=== PATIENT | female | born 1955 | race Caucasian/White ===

== ENCOUNTER 2017-02-19 23:22 | Inpatient (IN) | payer BC ==
[2017-02-20 01:15] LABS: Hematocrit 38 % (35-47); Hemoglobin 12.6 g/dl (12.0-16.0); Mean Corpuscular HGB Conc 33 g/dl (31-36); Mean Corpuscular Hemoglobin 32 pg (27-31); Mean Corpuscular Volume 96 fL (80-97); Mean Platelet Volume 9 um3 (7.4-10.4); Red Blood Count 3.97 10^6/ul (4.0-5.4); Red Cell Distribution Width 14 % (10.5-15); White Blood Count 3.2 10^3/ul (3.5-10.8)
[2017-02-20 01:17] LABS: Add Diff/Slide Review? Slide Review Added; Comments Flag Yes
[2017-02-20 01:25] LABS: Albumin 3.8 g/dL (3.2-5.2); BUN/Creatinine Ratio 14.3 (8-20); Calcium 9.9 mg/dL (8.6-10.3); EGFR African American 19.8 (>60); EGFR Non-African American 15.4 (>60); Globulin 3.8 g/dL (2-4); Magnesium 1.8 mg/dL (1.9-2.7); Potassium 4.8 mmol/L (3.5-5.0); Total Bilirubin 0.4 mg/dL (0.2-1.0); Total Protein 7.6 g/dL (6.4-8.9)
--- NOTE | 2017-02-20 01:33 | ED ---
Mayra Canas Alok, scribed for Lizeth Wells MD on 02/20/17 at 0035 . Dizziness - HPI Summary HPI Summary: 61F presents to the ED sent here from her PCP for hyponatremia. Pt notes dizziness lately. Pt denies fever, chills, or ELISE. - History Of Current Complaint Chief Complaint: EDGeneral Stated Complaint: LOW SODIUM Time Seen by Provider: 02/19/17 23:50 Hx Obtained From: Patient Severity Initially: Moderate Severity Currently: Moderate Character: Dizzy Aggravating Factor(s): Nothing Alleviating Factor(s): Nothing Associated Signs And Symptoms: Positive: Other: - hyponatremia. Negative: Fever , Chills - Allergies/Home Medications Allergies/Adverse Reactions: Allergies Allergy/AdvReac Type Severity Reaction Status Date / Time No Known Allergies Allergy Verified 10/05/12 06:09 PMH/Surg Hx/FS Hx/Imm Hx Endocrine/Hematology History: Reports: Hx Thyroid Disease - removed, thyroid CA hx Cardiovascular History: Reports: Hx Hypertension Denies: Hx Pacemaker/ICD GI History: Reports: Other GI Disorders - colectomy c/Jpouch Sensory History: Reports: Hx Contacts or Glasses Denies: Hx Hearing Aid Opthamlomology History: Reports: Hx Contacts or Glasses Psychiatric History: Reports: Hx Anxiety, Hx Depression, Hx Schizophrenia - Schizoaffective type, Other Psychiatric Issues/Disorders - increase in confusion /pt cognition at baseline unclear at present time Denies: Hx Panic Disorder - Cancer History Cancer Type, Location and Year: thyroid cancer,colon cancer Hx Chemotherapy: Yes - Surgical History Surgery Procedure, Year, and Place: Colectomy c/Jpouch, Whipple, thyroidectomy, HUMERUS FX Hx Anesthesia Reactions: No Infectious Disease History: No Infectious Disease History: Denies: Traveled Outside the [place] in Last 30 Days - Family History Known Family History: Positive: Other - Familial adenomatous polyposis - Social History Lives: [facility] Alcohol Use: None Substance Use Type: Reports: None Smoking Status (MU): Never Smoked Tobacco Review of Systems Negative: Fever, Chills Neurological: Other - dizziness Negative: Headache All Other Systems Reviewed And Are Negative: Yes Physical Exam Triage Information Reviewed: Yes Vital Signs On Initial Exam: Initial Vitals Pulse Resp Pulse Ox 83 18 99 02/19/17 23:30 02/19/17 23:30 02/19/17 23:30 Vital Signs Reviewed: Yes Appearance: Positive: Well-Appearing, No Pain Distress Skin: Positive: Warm, Skin Color Reflects Adequate Perfusion, Dry Eyes: Positive: EOMI, NEETU ENT: Positive: Pharynx normal, TMs normal Neck: Positive: Supple, Nontender Respiratory/Lung Sounds: Positive: Clear to Auscultation, Breath Sounds Present. Negative: Rales, Rhonchi, Wheezes Cardiovascular: Positive: RRR, Other - no gallop. Negative: Murmur, Rub Abdomen Description: Positive: Nontender, Soft, Other: - no rebound. Negative: Distended, Guarding Bowel Sounds: Positive: Present Musculoskeletal: Positive: Strength/ROM Intact. Negative: Edema Left, Edema Right Neurological: Positive: Sensory/Motor Intact, Alert, Oriented to Person Place, Time, CN Intact II-III Psychiatric: Positive: Affect/Mood Appropriate - [place] Coma Scale Coma Scale Total: 15 Diagnostics - Vital Signs Vital Signs Temp Pulse Resp BP Pulse Ox 02/19/17 23:32 97.1 F 85 16 133/83 99 02/19/17 23:30 83 18 99 - Laboratory Lab Results: Lab Results 02/20/17 02/20/17 Range/Units 00:45 00:45 WBC 3.2 L (3.5-10.8) 10^3/ul RBC 3.97 L (4.0-5.4) 10^6/ul Hgb 12.6 (12.0-16.0) g/dl Hct 38 (35-47) % MCV 96 (80-97) fL MCH 32 H (27-31) pg MCHC 33 (31-36) g/dl RDW 14 (10.5-15) % Plt Count 239 (150-450) 10^3/ul MPV 9 (7.4-10.4) um3 Neut % (Auto) 48.6 (38-83) % Lymph % (Auto) 19.9 L (25-47) % Casey % (Auto) 26.8 H (1-9) % Eos % (Auto) 4.3 (0-6) % Baso % (Auto) 0.4 (0-2) % Absolute Neuts (auto) 1.6 (1.5-7.7) 10^3/ul Absolute Lymphs (auto) 0.6 L (1.0-4.8) 10^3/ul Absolute Monos (auto) 0.9 H (0-0.8) 10^3/ul Absolute Eos (auto) 0.1 (0-0.6) 10^3/ul Absolute Basos (auto) 0 (0-0.2) 10^3/ul Absolute Nucleated RBC 0 10^3/ul Nucleated RBC % 0.1 Sodium 123 L (133-145) mmol/L Potassium 4.8 (3.5-5.0) mmol/L Chloride 100 L (101-111) mmol/L Carbon Dioxide 14 L* (22-32) mmol/L Anion Gap 9 (2-11) mmol/L BUN 44 H (6-24) mg/dL Creatinine 3.08 H (0.51-0.95) mg/dL Est GFR ( Amer) 19.8 (>60) Est GFR (Non-Af Amer) 15.4 (>60) BUN/Creatinine Ratio 14.3 (8-20) Glucose 108 H (70-100) mg/dL Calcium 9.9 (8.6-10.3) mg/dL Magnesium 1.8 L (1.9-2.7) mg/dL Total Bilirubin 0.40 (0.2-1.0) mg/dL AST 21 (13-39) U/L ALT 18 (7-52) U/L Alkaline Phosphatase 103 (34-104) U/L Total Protein 7.6 (6.4-8.9) g/dL Albumin 3.8 (3.2-5.2) g/dL Globulin 3.8 (2-4) g/dL Albumin/Globulin Ratio 1.0 (1-3) TSH Pending Result Diagrams: 02/20/17 00:45 02/20/17 00:45 Lab Statement: Any lab studies that have been ordered have been reviewed, and results considered in the medical decision making process. - EKG 0024 Cardiac Rate: NL - 66 bpm EKG Rhythm: Sinus Rhythm Dizzy Course/Dx - Course Course Of Treatment: 61 yo female with schizophrenia who is a poor historian sent by Dr. Melo after what pt reports was a regular physical for hyponatremia pt in fact has a sodium of 123 and new acute renal failure, case was discussed with Dr. Alvarado and she will be admitted - Diagnoses Provider Diagnoses: Hyponatremia, Renal failure Discharge - Discharge Plan Condition: Stable Disposition: ADMITTED TO [facility] The documentation as recorded by the Mayra tripathi Alok accurately reflects the service I personally performed and the decisions made by me, Lizeth Wells MD.
[2017-02-20 01:39] LABS: Eosinophils % 2 % (0-6); Immature Granulocytes 23 % (0-9); Macrocytosis 1+; Microcytosis 1+; Neutrophil % 32 % (38-83)
[2017-02-20 01:42] LABS: TSH (Thyroid Stimulating Horm) 18.88 mcIU/mL (0.34-5.60)
[2017-02-20] MEDS: NS 0.9% 1000 ML* 1,000 ML IV SCH ×2 (02:57→11:15)
--- NOTE | 2017-02-20 04:35 | HP ---
CC: Laura Melo MD * HISTORY AND PHYSICAL: DATE OF ADMISSION: 02/20/17 PRIMARY CARE PHYSICIAN: Laura Melo MD CHIEF COMPLAINT: I was told to come in because of my labs. HISTORY OF PRESENT ILLNESS: The patient is a 61-year-old woman, who was at her PCP's office today and was told to come back to the hospital because she was hyponatremic and her kidney function was worsened. Indeed, the patient had a sodium of apparently 120 as an outpatient, it has come out to 123 here. However , creatinine is up over 3 and she does have metabolic acidosis. She denies any symptoms at this time. She states she drinks plenty of water but when queried she says it is only 2 glasses a day. She also notes she has been taking a lot of Advil up until last week and her doctor changed her to another medication, but she does not know the name. Furthermore, she does not know the name of any of her medications. She has felt a little dizzy lately. She denies any black stools. She states she has been urinating adequately. 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 CURRENT MEDICATIONS: She is unaware of what she is taking. We will get the list from her PCP in the a.m. ALLERGIES: No known drug allergies. FAMILY HISTORY: Reviewed and noncontributory. SOCIAL HISTORY: No tobacco, alcohol or recreational drug use. She lives with a rastafari group in [place]. Her sister, Silke Yung is her healthcare proxy. REVIEW OF SYSTEMS: A 14-point review of systems was completed with the patient. All pertinent positives and negatives are in the history of present illness; otherwise, it is negative. PHYSICAL EXAMINATION GENERAL: A pleasant woman, sitting up in bed, in no acute distress. VITAL SIGNS: Blood pressure 120/75, pulse oxygenation 100% on room air, respiratory rate 10 breaths per minute, heart rate 72 beats per minutes, temperature 97.1 degrees. HEENT: Normocephalic, atraumatic. Pupils equal, round, and reactive to light. Moist mucous membranes. NECK: Supple. No JVD, bruits, palpable thyroid or lymphadenopathy. CHEST: Clear to auscultation and percussion bilaterally. CARDIOVASCULAR: S1 and S2 appreciated. ABDOMEN: Positive bowel sounds in all 4 quadrants. Soft, nontender, and nondistended. EXTREMITIES: No cyanosis or clubbing. +2 peripheral pulses bilaterally. NEUROLOGIC: Alert and oriented x3. Moves all extremities. SKIN: No rashes or abnormalities. LABORATORY DATA/DIAGNOSTIC STUDIES: Sodium is 123, potassium 4.8, chloride 100 , CO2 14, BUN 44, creatinine 3.08, glucose 108, magnesium 1.8. TSH is pending. White count is 3.2, hemoglobin 12.6, hematocrit 38, platelets of 239. She has had 23 bands and neutrophils. EKG shows normal sinus rhythm at 66 beats per minute, normal axis, no acute ST- T wave changes. ASSESSMENT AND PLAN: . Acute kidney injury, it is uncertain what this is but her ratio was not consistent with prerenal. It could be interstitial nephritis or something else related to Advil she was taking or even the new medication. I will get a fractional excretion of sodium. I will hydrate her with normal saline at 100 cc an hour. I will hold any nephrotoxic medications. Hopefully, this will reverse in a short time, otherwise may consider nephrology consult. 2. Metabolic acidosis. Again, I suspect this may be secondary to some medications she was taking. We will get the full list from her PCP in the a.m. At this time, it is unclear as to why but she has had this in the past, for example bicarbonate was 16. 3. Hypertension, adequate control, but I will hold her irbesartan if she is still taking it because of concerns with her kidney function and I will monitor. 4. Hypothyroidism, I am awaiting her list of medications to give patient appropriate medication. She was on both liothyronine and levothyroxine most recently. 5. Schizophrenia, continue current regimen. 6. FEN. Regular diet. 7. DVT prophylaxis: Heparin subcu. 8. The patient is a full code. TIME SPENT: Over 75 minutes were spent on this H and P, and more than 40 minutes were spent in direct [id number] contact with the patient in evaluation , physical examination, counseling, and coordination of care. [id number]/[facility] #: [id number] [facility]ENTER[facility]
[2017-02-20] MEDS: Levothyroxine TAB* 150 MCG TAB PO SCH (06:01)
[2017-02-20] MEDS: Heparin VIAL(*) 5000 UNITS/ML VIAL (FIVE THOUSAND) SUBCUT SCH ×3 (06:01→21:21)
[2017-02-20 06:09] LABS: Urine Bacteria 1+ (Absent); Urine Bilirubin Negative (Negative); Urine Glucose Negative (Negative); Urine Nitrite Positive (Negative)
[2017-02-20 06:15] LABS: Urine Random Sodium < 18 mmol/L
[2017-02-20 06:30] LABS: BUN/Creatinine Ratio 15.3 (8-20); Calcium 9.3 mg/dL (8.6-10.3); EGFR African American 22.7 (>60); EGFR Non-African American 17.6 (>60); Potassium 4.4 mmol/L (3.5-5.0)
[2017-02-20] MEDS: Aspirin EC Low Dose* 81 MG TAB.EC PO SCH (08:17)
[2017-02-20] MEDS: Liothyronine TAB* 5 MCG PO SCH ×2 (08:17→21:21)
[2017-02-20] MEDS ORDERED: FLUoxetine CAP* 10 MG PO SCH (09:00)
--- NOTE | 2017-02-20 11:21 | PN ---
Subjective Date of Service: 02/20/17 Interval History: This is a 61 yo female with chronic schizophrenia with multiple medical comorbidities who was referred to the ER yesterday by her PCP when outpatient labs demonstrated significant hyponatremia. Patient states that she has been asymptomatic, but her PCP reported that she has recently complained of weakness. Patient was noted to be hyponatremic with DENTON and subsequent metabolic acidosis and was subsequently admitted last night and started on NS. Patient denies recent acute illness but does recall vomiting once last week after a 2nd cup of coffee. She has been taking Advil recently, but patient can not tell me what the indication was or how much she was taking. This am, she offers no complaints. No CP, SOB, abd pain, n/v. Nursing staff noted a rash and some breakdown between her legs. Objective Active Medications: Aspirin (Aspirin Ec Low Dose*) 81 mg PO DAILY [facility] Last Admin: 02/20/17 08:17 Dose: 81 mg Fluoxetine HCl (Prozac Cap*) 30 mg PO QAM [facility] Last Admin: 02/20/17 08:17 Dose: 30 mg Heparin Sodium (Porcine) (Heparin Vial(*)) 5,000 units SUBCUT Q8HR [facility] Last Admin: 02/20/17 06:01 Dose: 5,000 units Sodium Chloride (Ns 0.9% 1000 Ml*) 1,000 mls @ 125 mls/hr IV PER RATE [facility] Last Admin: 02/20/17 11:15 Dose: 125 mls/hr Levothyroxine Sodium (Synthroid Tab*) 150 mcg PO DAILY@0600 [facility] Last Admin: 02/20/17 06:01 Dose: 150 mcg Liothyronine Sodium (Cytomel Tab*) 5 mcg PO BID [facility] Last Admin: 02/20/17 08:17 Dose: 5 mcg Risperidone (Risperdal*) 1 mg PO BEDTIME [facility] Vital Signs: Temp Pulse Resp BP Pulse Ox 97.4 F 75 16 109/57 100 02/20/17 07:16 02/20/17 07:16 02/20/17 07:16 02/20/17 07:16 02/20/17 02:30 Oxygen Devices in Use Now: None Appearance: Elderly female who appears older than stated age who appears somewhat disheveled with a pungent odor Respiratory: Symmetrical Chest Expansion and Respiratory Effort, Clear to Auscultation Cardiovascular: NL Sounds; No Murmurs; No JVD, RRR Abdominal: NL Sounds; No Tenderness; No Distention Extremities: No Edema Skin: - - some hyperemia and mild breakdown of skin between legs Neurological: Alert and Oriented x 3 Result Diagrams: 02/20/17 00:45 02/20/17 05:39 Additional Lab and Data: . Assess/Plan/Problems-Billing Assessment: This is a 61 yo female with chronic schizophrenia, postsurgical hypothyroidism following thyroidectomy for thyroid CA, h/o total colectomy related to familial adenomatous polyp syndrome with a J pounch, as well as a history of ampullary carcinoma status Whipple procedure who was referred to the hospital for hyponatremia noted on outpatient lab work. - Patient Problems (1) DENTON (acute kidney injury) Comment: Acute on chronic, baseline stage III dysfunction with Cr ~1.6 Likely ATN secondary to NSAID use FeNa 0.4% suggestive of pre-renal, but this was calculated after NS started Noted improvement with NS Appropriate urine outpt Repeat labs at noon, cont with NS at this time (2) Metabolic acidosis Comment: Secondary to DENTON (3) Hyponatremia Comment: Some chronic hyponatremia noted on prior labs Avapro recently discontinued by PCP May be related to hypothyroidism, hold SSRI at this time Receiving NS, repeat labs at noon (4) HTN (hypertension) Comment: Normotensive Cont amlodipine and metoprolol (5) Hypothyroid Comment: TSH 18.8, question compliance, may be contributing to hyponatremia Continue cytomel and synthroid (6) Schizophrenia Comment: Chronic, no psychotic features Cont Risperdal (7) Full code status (8) DVT prophylaxis Comment: HSQ Status and Disposition: Inpatient. Requested social work consult to review home living situation, as patient does not appear to be properly caring for herself. Discharge likely in 1-2 days
[2017-02-20 12:26] LABS: BUN/Creatinine Ratio 15.1 (8-20); Calcium 9.1 mg/dL (8.6-10.3); EGFR African American 24.9 (>60); EGFR Non-African American 19.4 (>60); Potassium 4.4 mmol/L (3.5-5.0)
[2017-02-20] MEDS ORDERED: Sodium Bicarbonate 8.4% IV* 50 MEQ in NS 0.9% 1000 ML* 1,000 ML IV ONE (14:00)
[2017-02-20] MEDS ORDERED: amLODIPine TAB* 5 MG PO SCH (15:50)
[2017-02-20] MEDS ORDERED: Metoprolol Succinate XL TAB* 50 MG PO SCH (15:50)
[2017-02-20] MEDS ORDERED: Acetaminophen TAB* 325 MG PO PRN (15:51)
[2017-02-20] MEDS: amLODIPine TAB* 5 MG PO SCH (16:36)
[2017-02-20] MEDS: Metoprolol Succinate XL TAB* 50 MG PO SCH (16:36)
[2017-02-20 17:13] LABS: BUN/Creatinine Ratio 15.3 (8-20); Calcium 8.8 mg/dL (8.6-10.3); EGFR African American 28.9 (>60); EGFR Non-African American 22.5 (>60); Potassium 4.4 mmol/L (3.5-5.0)
[2017-02-20] MEDS: risperiDONE TAB* 1 MG PO SCH (21:21)
[2017-02-21] MEDS: NS 0.9% 1000 ML* 1,000 ML IV SCH ×2 (02:20→11:30)
[2017-02-21] MEDS: Levothyroxine TAB* 150 MCG TAB PO SCH (06:11)
[2017-02-21] MEDS: Heparin VIAL(*) 5000 UNITS/ML VIAL (FIVE THOUSAND) SUBCUT SCH ×3 (06:11→21:55)
[2017-02-21] MEDS: Aspirin EC Low Dose* 81 MG TAB.EC PO SCH (07:43)
[2017-02-21] MEDS: amLODIPine TAB* 5 MG PO SCH (07:43)
[2017-02-21] MEDS: Liothyronine TAB* 5 MCG PO SCH ×2 (07:43→21:54)
[2017-02-21] MEDS: Metoprolol Succinate XL TAB* 50 MG PO SCH (07:43)
[2017-02-21 07:53] LABS: Blood Urea Nitrogen 26 mg/dL (6-24); Calcium 8.1 mg/dL (8.6-10.3); Chloride 104 mmol/L (101-111); EGFR African American 35.4 (>60); EGFR Non-African American 27.5 (>60); Glucose 93 mg/dL (70-100); Sodium 125 mmol/L (133-145)
[2017-02-21 08:06] LABS: Potassium 4.1 mmol/L (3.5-5.0)
[2017-02-21 08:07] LABS: CO2 Carbon Dioxide 13 mmol/L (22-32)
[2017-02-21] MEDS ORDERED: amLODIPine TAB* 5 MG PO SCH (09:00)
[2017-02-21] MEDS ORDERED: Metoprolol Succinate XL TAB* 50 MG PO SCH (09:00)
[2017-02-21] MEDS: Nystatin CREAM* 15 GM TUBE TOPICAL SCH ×2 (13:17→21:54)
--- NOTE | 2017-02-21 17:07 | PN ---
Subjective Date of Service: 02/21/17 Interval History: Patient seen and examined at bedside. She offers no complaints. Denies CP, SOB, abd pain, n/v, fever/chills. Reports rash in between her legs "has been there for awhile but is getting better." Patient unable to tell me if she has been taking medication for the rash or about any of her medications. Nursing reports concern that patient was dishelved and malodorous. The patient had to be firmly told she needed a shower today. She also needed prompting once in the shower on how to wash her face and perform self care. Patient reports she takes care of herself. Family History: Unchanged from Admission Social History: Unchanged from Admission Past Medical History: Unchanged from Admission Objective Active Medications: Acetaminophen (Tylenol Tab*) 650 mg PO Q6H PRN PRN Reason: pain, fever Amlodipine Besylate (Norvasc Tab*) 5 mg PO 0900 [facility] Last Admin: 02/21/17 07:43 Dose: 5 mg Aspirin (Aspirin Ec Low Dose*) 81 mg PO DAILY [facility] Last Admin: 02/21/17 07:43 Dose: 81 mg Heparin Sodium (Porcine) (Heparin Vial(*)) 5,000 units SUBCUT Q8HR [facility] Last Admin: 02/21/17 13:17 Dose: 5,000 units Lactated Ringer's (Lactated Ringers 1000 Ml Bag*) 1,000 mls @ 125 mls/hr IV PER RATE [facility] Last Admin: 02/21/17 13:17 Dose: 125 mls/hr Levothyroxine Sodium (Synthroid Tab*) 150 mcg PO DAILY@0600 [facility] Last Admin: 02/21/17 06:11 Dose: 150 mcg Liothyronine Sodium (Cytomel Tab*) 5 mcg PO BID [facility] Last Admin: 02/21/17 07:43 Dose: 5 mcg Metoprolol Succinate (Toprol Xl Tab*) 50 mg PO 0900 [facility] Last Admin: 02/21/17 07:43 Dose: 50 mg Nystatin (Nystatin Cream*) 1 applic TOPICAL TID [facility] Last Admin: 02/21/17 13:17 Dose: 1 applic Risperidone (Risperdal*) 1 mg PO BEDTIME [facility] Last Admin: 02/20/17 21:21 Dose: 1 mg Vital Signs 02/20/17 02/20/17 02/20/17 19:15 23:30 23:47 Temperature 99.4 F 99.9 F Pulse Rate 94 88 Respiratory 18 20 Rate Blood Pressure 139/75 122/63 (mmHg) O2 Sat by Pulse 98 98 Oximetry 02/21/17 02/21/17 02/21/17 04:09 07:22 07:46 Temperature 98.6 F 98.6 F Pulse Rate 79 76 Respiratory 18 16 18 Rate Blood Pressure 114/61 145/69 (mmHg) O2 Sat by Pulse 98 99 Oximetry 02/21/17 02/21/17 11:29 11:56 Temperature 97.9 F Pulse Rate 76 Respiratory 16 Rate Blood Pressure 151/83 143/76 (mmHg) O2 Sat by Pulse 100 Oximetry Oxygen Devices in Use Now: None Appearance: Elderly female, appears older than stated age, lying in bed, NAD. Ears/Nose/Mouth/Throat: Mucous Membranes Moist Respiratory: Symmetrical Chest Expansion and Respiratory Effort, Clear to Auscultation Cardiovascular: NL Sounds; No Murmurs; No JVD, RRR Abdominal: NL Sounds; No Tenderness; No Distention Extremities: No Edema Skin: - - hyperemia and mild skin breakdown between legs and to vaginal region Neurological: - - Alert, oriented to self, place, disoriented to time. Disoriented to situation Lines/Tubes/Other Access: Clean, Dry and Intact Peripheral IV Nutrition: Taking PO's Result Diagrams: 02/20/17 00:45 02/21/17 06:56 Additional Lab and Data: . 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 - Patient Problems (1) DENTON (acute kidney injury) Code(s): N17.9 - ACUTE KIDNEY FAILURE, UNSPECIFIED Comment: Acute on chronic, baseline stage III dysfunction with Cr ~1.6 Likely ATN secondary to NSAID use FeNa 0.4% suggestive of pre-renal, but this was calculated after NS started Improving with IVF Appropriate urine outpt Change to LR due to metabolic acidosis, recheck BMP this afternoon. (2) Metabolic acidosis Code(s): E87.2 - ACIDOSIS Comment: Secondary to DENTON Change NS to LR, recheck BMP this afternoon Will give pt bicarb if pt's bicarb level on BMP remains low. (3) Hyponatremia Code(s): E87.1 - HYPO-OSMOLALITY AND HYPONATREMIA Comment: Some chronic hyponatremia noted on prior labs Avapro recently discontinued by PCP May be related to hypothyroidism, hold SSRI at this time (4) HTN (hypertension) Code(s): I10 - ESSENTIAL (PRIMARY) HYPERTENSION Comment: Mostly normotensive Cont amlodipine and metoprolol (5) Hypothyroid Code(s): E03.9 - HYPOTHYROIDISM, UNSPECIFIED Comment: TSH 18.8, question compliance, may be contributing to hyponatremia Continue liothyronine and levothyroxine. (6) Schizophrenia Code(s): F20.9 - SCHIZOPHRENIA, UNSPECIFIED Comment: Chronic, no psychotic features Cont Risperdal (7) DVT prophylaxis Comment: HSQ (8) Full code status Code(s): Z78.9 - OTHER SPECIFIED HEALTH STATUS Status and Disposition: Inpatient. Requested social work consult to review home living situation, as patient does not appear to be properly caring for herself. Concern that patient needs more monitoring and assistance.
[2017-02-21] MEDS: cefTRIAXone VIAL(*) 1,000 MG in NS 0.9% 50 ML* 50 ML IVPB SCH (18:03)
[2017-02-21 20:03] LABS: Calcium 8.3 mg/dL (8.6-10.3); EGFR African American 36.6 (>60); EGFR Non-African American 28.4 (>60)
[2017-02-21] MEDS: risperiDONE TAB* 1 MG PO SCH (21:54)
[2017-02-22] MEDS: Levothyroxine TAB* 150 MCG TAB PO SCH (05:21)
[2017-02-22] MEDS: Heparin VIAL(*) 5000 UNITS/ML VIAL (FIVE THOUSAND) SUBCUT SCH ×3 (05:21→20:55)
[2017-02-22 07:03] LABS: BUN/Creatinine Ratio 10.4 (8-20); Calcium 8.2 mg/dL (8.6-10.3); EGFR African American 47.6 (>60)
[2017-02-22 07:05] LABS: Potassium 3.9 mmol/L (3.5-5.0)
[2017-02-22] MEDS: Nystatin CREAM* 15 GM TUBE TOPICAL SCH ×3 (07:32→21:00)
[2017-02-22] MEDS: Aspirin EC Low Dose* 81 MG TAB.EC PO SCH (07:32)
[2017-02-22] MEDS: Liothyronine TAB* 5 MCG PO SCH ×2 (07:32→20:54)
[2017-02-22] MEDS: amLODIPine TAB* 5 MG PO SCH (07:32)
[2017-02-22] MEDS: Metoprolol Succinate XL TAB* 50 MG PO SCH (07:32)
--- NOTE | 2017-02-22 10:20 | PN ---
Subjective Date of Service: 02/22/17 Interval History: Patient seen and examined at bedside. She offers no acute complaints, denies fever, CP, SOB, abd pain, n/v. No acute nursing concerns. Family History: Unchanged from Admission Social History: Unchanged from Admission Past Medical History: Unchanged from Admission Objective Active Medications: Acetaminophen (Tylenol Tab*) 650 mg PO Q6H PRN PRN Reason: pain, fever Amlodipine Besylate (Norvasc Tab*) 5 mg PO 0900 [facility] Last Admin: 02/22/17 07:32 Dose: 5 mg Aspirin (Aspirin Ec Low Dose*) 81 mg PO DAILY [facility] Last Admin: 02/22/17 07:32 Dose: 81 mg Heparin Sodium (Porcine) (Heparin Vial(*)) 5,000 units SUBCUT Q8HR [facility] Last Admin: 02/22/17 05:21 Dose: 5,000 units Lactated Ringer's (Lactated Ringers 1000 Ml Bag*) 1,000 mls @ 125 mls/hr IV PER RATE [facility] Last Admin: 02/21/17 21:55 Dose: 125 mls/hr Ceftriaxone Sodium 1,000 mg/ (Sodium Chloride) 50 mls @ 200 mls/hr IVPB Q24H [facility] Last Admin: 02/21/17 18:03 Dose: 200 mls/hr Levothyroxine Sodium (Synthroid Tab*) 150 mcg PO DAILY@0600 [facility] Last Admin: 02/22/17 05:21 Dose: 150 mcg Liothyronine Sodium (Cytomel Tab*) 5 mcg PO BID [facility] Last Admin: 02/22/17 07:32 Dose: 5 mcg Metoprolol Succinate (Toprol Xl Tab*) 50 mg PO 0900 [facility] Last Admin: 02/22/17 07:32 Dose: 50 mg Nystatin (Nystatin Cream*) 1 applic TOPICAL TID [facility] Last Admin: 02/22/17 07:32 Dose: 1 applic Risperidone (Risperdal*) 1 mg PO BEDTIME [facility] Last Admin: 02/21/17 21:54 Dose: 1 mg Vital Signs 02/21/17 02/21/17 02/21/17 11:29 11:56 15:45 Temperature 97.9 F 98.4 F Pulse Rate 76 83 Respiratory 16 20 Rate Blood Pressure 151/83 143/76 148/75 (mmHg) O2 Sat by Pulse 100 100 Oximetry 02/21/17 02/21/17 02/22/17 19:55 20:00 01:15 Temperature 98.5 F 98.2 F Pulse Rate 83 87 Respiratory 24 16 16 Rate Blood Pressure 155/78 150/68 (mmHg) O2 Sat by Pulse 99 98 Oximetry 02/22/17 02/22/17 02/22/17 03:35 07:36 08:00 Temperature 98.3 F 98.1 F Pulse Rate 81 81 Respiratory 14 16 16 Rate Blood Pressure 147/72 150/86 (mmHg) O2 Sat by Pulse 100 99 Oximetry Oxygen Devices in Use Now: None Appearance: Female patient, lying in bed, NAD Ears/Nose/Mouth/Throat: Mucous Membranes Moist Respiratory: Symmetrical Chest Expansion and Respiratory Effort, Clear to Auscultation Cardiovascular: NL Sounds; No Murmurs; No JVD, RRR Abdominal: NL Sounds; No Tenderness; No Distention Extremities: No Edema Neurological: Alert and Oriented x 3 Lines/Tubes/Other Access: Clean, Dry and Intact Peripheral IV Nutrition: Taking PO's Result Diagrams: 02/20/17 00:45 02/22/17 06:16 Additional Lab and Data: . 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 - Patient Problems (1) DENTON (acute kidney injury) Code(s): N17.9 - ACUTE KIDNEY FAILURE, UNSPECIFIED Comment: Acute on chronic, baseline stage III dysfunction with Cr ~1.6 Likely ATN secondary to NSAID use FeNa 0.4% suggestive of pre-renal, but this was calculated after NS started Improving with IVF Appropriate urine outpt Change to LR due to metabolic acidosis (2) Metabolic acidosis Code(s): E87.2 - ACIDOSIS Comment: Secondary to DENTON Improved with change to LR (3) Hyponatremia Code(s): E87.1 - HYPO-OSMOLALITY AND HYPONATREMIA Comment: Improving Some chronic hyponatremia noted on prior labs Avapro recently discontinued by PCP May be related to hypothyroidism, hold SSRI at this time (4) HTN (hypertension) Code(s): I10 - ESSENTIAL (PRIMARY) HYPERTENSION Comment: Mostly normotensive Cont amlodipine and metoprolol (5) Hypothyroid Code(s): E03.9 - HYPOTHYROIDISM, UNSPECIFIED Comment: TSH 18.8, question compliance, may be contributing to hyponatremia Continue liothyronine and levothyroxine. (6) Schizophrenia Code(s): F20.9 - SCHIZOPHRENIA, UNSPECIFIED Comment: Chronic, no psychotic features Cont Risperdal (7) DVT prophylaxis Comment: HSQ (8) Full code status Code(s): Z78.9 - OTHER SPECIFIED HEALTH STATUS Status and Disposition: Inpatient. Requested social work consult to review home living situation, as patient does not appear to be properly caring for herself. Concern that patient needs more monitoring and assistance.
[2017-02-22] MEDS: cefTRIAXone VIAL(*) 1,000 MG in NS 0.9% 50 ML* 50 ML IVPB SCH (17:24)
[2017-02-22] MEDS: risperiDONE TAB* 1 MG PO SCH (20:54)
[2017-02-23] MEDS: Levothyroxine TAB* 150 MCG TAB PO SCH (06:00)
[2017-02-23] MEDS: Heparin VIAL(*) 5000 UNITS/ML VIAL (FIVE THOUSAND) SUBCUT SCH ×2 (06:00→13:47)
--- NOTE | 2017-02-23 08:23 | PN ---
Subjective Date of Service: 02/23/17 Interval History: Patient seen and examined at bedside. No acute complaints, denies CP, SOB, n/v. No acute nursing concerns. Family aware of living situation concerns, open to patient returning to home with more assistance. Family History: Unchanged from Admission Social History: Unchanged from Admission Past Medical History: Unchanged from Admission Objective Active Medications: Acetaminophen (Tylenol Tab*) 650 mg PO Q6H PRN PRN Reason: pain, fever Amlodipine Besylate (Norvasc Tab*) 5 mg PO 0900 [facility] Last Admin: 02/22/17 07:32 Dose: 5 mg Aspirin (Aspirin Ec Low Dose*) 81 mg PO DAILY [facility] Last Admin: 02/22/17 07:32 Dose: 81 mg Heparin Sodium (Porcine) (Heparin Vial(*)) 5,000 units SUBCUT Q8HR [facility] Last Admin: 02/23/17 06:00 Dose: 5,000 units Ceftriaxone Sodium 1,000 mg/ (Sodium Chloride) 50 mls @ 200 mls/hr IVPB Q24H [facility] Last Admin: 02/22/17 17:24 Dose: 200 mls/hr Levothyroxine Sodium (Synthroid Tab*) 150 mcg PO DAILY@0600 [facility] Last Admin: 02/23/17 06:00 Dose: 150 mcg Liothyronine Sodium (Cytomel Tab*) 5 mcg PO BID [facility] Last Admin: 02/22/17 20:54 Dose: 5 mcg Metoprolol Succinate (Toprol Xl Tab*) 50 mg PO 0900 [facility] Last Admin: 02/22/17 07:32 Dose: 50 mg Nystatin (Nystatin Cream*) 1 applic TOPICAL TID [facility] Last Admin: 02/22/17 21:00 Dose: 1 applic Risperidone (Risperdal*) 1 mg PO BEDTIME [facility] Last Admin: 02/22/17 20:54 Dose: 1 mg Vital Signs 02/22/17 02/22/17 02/22/17 15:26 19:31 20:00 Temperature 98.0 F 98.5 F Pulse Rate 75 81 Respiratory 16 20 20 Rate Blood Pressure 129/58 146/83 (mmHg) O2 Sat by Pulse 99 98 Oximetry 02/22/17 02/22/17 02/23/17 23:30 23:47 03:52 Temperature 98.8 F 98.5 F Pulse Rate 77 91 Respiratory 18 20 16 Rate Blood Pressure 152/81 133/69 (mmHg) O2 Sat by Pulse 99 96 Oximetry Oxygen Devices in Use Now: None Appearance: Elderly female, appears older than stated age, lying in bed, NAD Eyes: PERRLA Ears/Nose/Mouth/Throat: Mucous Membranes Moist Respiratory: Symmetrical Chest Expansion and Respiratory Effort, Clear to Auscultation Cardiovascular: NL Sounds; No Murmurs; No JVD, RRR Extremities: No Edema Neurological: Alert and Oriented x 3 Nutrition: Taking PO's Result Diagrams: 02/20/17 00:45 02/23/17 12:24 Additional Lab and Data: . 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 - Patient Problems (1) DENTON (acute kidney injury) Code(s): N17.9 - ACUTE KIDNEY FAILURE, UNSPECIFIED Comment: Creatinine within baseline Acute on chronic, baseline stage III dysfunction with Cr ~1.6 Likely ATN secondary to NSAID use (2) Metabolic acidosis Code(s): E87.2 - ACIDOSIS Comment: Secondary to DENTON Improved with change to LR (3) Hyponatremia Code(s): E87.1 - HYPO-OSMOLALITY AND HYPONATREMIA Comment: Improved Some chronic hyponatremia noted on prior labs Avapro recently discontinued by PCP Outpatient BMP and follow-up with PCP (4) HTN (hypertension) Code(s): I10 - ESSENTIAL (PRIMARY) HYPERTENSION Comment: Mostly normotensive Cont amlodipine and metoprolol (5) Hypothyroid Code(s): E03.9 - HYPOTHYROIDISM, UNSPECIFIED Comment: TSH 18.8, question compliance, may be contributing to hyponatremia Continue liothyronine and levothyroxine. (6) Schizophrenia Code(s): F20.9 - SCHIZOPHRENIA, UNSPECIFIED Comment: Chronic, no psychotic features Cont Risperdal (7) DVT prophylaxis Comment: HSQ (8) Full code status Code(s): Z78.9 - OTHER SPECIFIED HEALTH STATUS Status and Disposition: Inpatient. [facility] for [facility] to assist with care needs, as well as better medication monitoring. Patient's family aware of plan. D/c to home.
[2017-02-23] MEDS: Nystatin CREAM* 15 GM TUBE TOPICAL SCH ×2 (09:27→13:47)
[2017-02-23] MEDS: Metoprolol Succinate XL TAB* 50 MG PO SCH (09:27)
[2017-02-23] MEDS: Liothyronine TAB* 5 MCG PO SCH (09:27)
[2017-02-23] MEDS: Aspirin EC Low Dose* 81 MG TAB.EC PO SCH (09:28)
[2017-02-23] MEDS: amLODIPine TAB* 5 MG PO SCH (09:28)
[2017-02-23 13:06] LABS: BUN/Creatinine Ratio 8.4 (8-20); Calcium 8.7 mg/dL (8.6-10.3); EGFR Non-African American 34.2 (>60)
[2017-02-23 13:09] LABS: Potassium 4.4 mmol/L (3.5-5.0)
[2017-02-23 15:31] VITALS: BP 146/71
--- NOTE | 2017-02-24 11:20 | DS ---
CC: Dr. Laura Melo * DISCHARGE SUMMARY: DATE OF ADMISSION: 02/20/17 DATE OF DISCHARGE: 02/23/17 PRIMARY CARE PHYSICIAN: Dr. Laura Melo. PROVIDER: Monique Gill NP. ATTENDING PHYSICIAN: Dr. Rio Brenner *(as dictated by Monique Gill NP). PRIMARY DISCHARGE DIAGNOSES: 1. Hyponatremia. 2. Metabolic acidosis. 3. Acute kidney injury. SECONDARY DISCHARGE DIAGNOSES: 1. Schizophrenia. 2. Gastric polyps. 3. Thyroid cancer with postsurgical hypothyroidism. 4. Familial adenomatous polyp syndrome, status post total colectomy and ileal pouch institution. 5. Anastomotic ulcer of the above mentioned. 6. Status post Whipple procedure for ampullary carcinoma in 2001. 7. Depression. 8. Chronic kidney disease. MEDICATIONS AT DISCHARGE: 1. Metoprolol succinate XL 50 mg daily. 2. Amlodipine 5 mg daily. 3. Aspirin 81 mg daily. 4. Fluoxetine 30 mg q.a.m. 5. Risperidone 1 mg at bedtime. 6. Liothyronine 5 mcg b.i.d. 7. Levothyroxine 150 mcg daily. 8. Nystatin cream one application topical t.i.d. to affected rash and groins. HOSPITAL COURSE OF STAY: For full details, please refer to the H and P provided by Dr. Alvarado on 02/20/17. In summary, Ms. Yung is a 61-year-old female who was at her PCP's office and was referred to the ER due to hyponatremia and worsening kidney function. The patient's sodium was noted to be 120 in the outpatient office. She was noted to be 123 here. Her creatinine was over 3; however, she did demonstrate metabolic acidosis. Patient was admitted and started on normal saline. Patient's acute kidney injury was attributed to potential acute tubular necrosis secondary to NSAID use. Her FENa was taken after she was hydrated and indicated prerenal causes; however, it does appear that this may be a combination of both prerenal chronic conditions as well as ibuprofen use. In regards to the patient's hyponatremia, again there is a chronicity to this. Patient was started on normal saline but switched to LR and there was noted improvement in her metabolic acidosis and hyponatremia. Of note, the patient's Avapro was recently discontinued by her PCP. This hyponatremia may also be related to her hypothyroidism, but it is unclear at this time. With the IV therapy and close monitoring, the patient's renal function and sodium levels have improved and her renal function is back within baseline. The patient's sodium level is 129 upon discharge, which is fairly better than baseline for levels seen here in the hospital. The patient is recommended to follow up with another BMP in the outpatient setting. She is scheduled to see her PCP tomorrow and this can be drawn then or later on this week. In regards to the patient's discharge, there was concern because Ms. Yung is very disheveled and malodorous upon arrival here to the hospital. It was unclear when she had last showered. It was also unclear if she has been taking her medications. She does reside at a [facility] in [place], who does help administer the medications to the patient; however, it is not clear if they actually watch the patient take her medications. Additionally, the patient does admit that she does need prompting to remember to do basic ADLs and to appropriately provide self-care. While here in the hospital, the patient required multiple prompts and assistance in taking a shower and needed reminding as to how to wash herself up. Additionally, the patient was seen by Physical and Occupational Therapy, who also noted that the patient would most likely benefit from some home health assistance or nursing services that will help in monitoring and prompted the patient in these areas. This was discussed with the patient's sister, who did not want to lose the housing that the patient currently has. We did arrange for visiting nurses to be established for the patient. Case Management also spoke with the m[facility], who was advised to watch the patient take her medications in order to ensure medication compliance. On the day of discharge, the patient was in stable condition. Vital signs were stable. She has no acute complaints. Her creatinine ____ baseline function and she is to follow up with her PCP tomorrow. CONCERNS AT DISCHARGE: Ms. Yung will be discharged to home on 02/23/17 and is to have home nursing services sign on this week. They will provide [facility] for cardiopulmonary assessment, medication assessment, evaluation for a locked box, lab draws as needed and a durable medical equipment technician. DIET: May resume a regular diet. Patient is advised to drink plenty of fluids as she does report that she does not drink as regularly as she should. ACTIVITY: As tolerated. FOLLOWUP NEEDS AT DISCHARGE: Patient should have a followup BMP and a script was provided for the patient to have this done through visiting nursing services. Patient was also advised that she could have this done at the office tomorrow if she chooses. CONDITION: Stable. DISPOSITION: To home with visiting nursing services. TIME SPENT: Time spent on this discharge was appropriately 40 minutes. Again, this is only a brief summary of the patient's hospital course of stay. For full details, please refer to the full medical record. If you have any further questions or need further assistance, please feel free to contact me at . MONIQUE GILL NP [id number]/CPS #: [id number] GAGE
== END 2017-02-23 16:10 | disposition home health service (06) | DRG 460 ==
LOC: ED 23:22 → MED 02-20 01:55
PROVIDERS: ADMIT Internal Medicine; ATTEND Internal Medicine
DX: N17.0 Acute kidney failure with tubular necrosis (principal); E87.1 Hypo-osmolality and hyponatremia; K63.3 Ulcer of intestine; E87.2 Acidosis; F20.9 Schizophrenia, unspecified; K31.7 Polyp of stomach and duodenum; E89.0 Postprocedural hypothyroidism; F41.9 Anxiety disorder, unspecified; F32.9 Major depressive disorder, single episode, unspecified; R40.2412 Glasgow coma scale score 13-15, at arrival to emergency department; I12.9 Hypertensive chronic kidney disease with stage 1 through stage 4 chronic kidney disease, or unspecified chronic kidney disease; N18.3 Chronic kidney disease, stage 3 (moderate); T39.395A Adverse effect of other nonsteroidal anti-inflammatory drugs [NSAID], initial encounter; Z85.850 Personal history of malignant neoplasm of thyroid; Z90.49 Acquired absence of other specified parts of digestive tract; Z92.21 Personal history of antineoplastic chemotherapy; Z83.71 Family history of colonic polyps; Z85.89 Personal history of malignant neoplasm of other organs and systems; Z79.82 Long term (current) use of aspirin
CPT/HCPCS: 36415; 80048; 80053; 81003; 81015; 82570; 83605; 83735; 83930; 83935; 84300; 84443; 85025; 87077; 87086; 87186; 93005; A9270-GY; J0696; J1644

== ENCOUNTER 2017-06-21 12:36 | Observation (INO) | payer BC ==
--- NOTE | 2017-06-21 14:59 | RAD ---
HISTORY: Confusion COMPARISONS: Head CT dated July 23, 2016 TECHNIQUE: Multiple contiguous axial CT scans were obtained of the head without intravenous contrast. FINDINGS: HEMORRHAGE/INFARCT: There is no hemorrhage or acute infarct. MASSES/SHIFT: There is no mass or shift. EXTRA-AXIAL SPACES: There are no extra-axial fluid collections. SULCI AND VENTRICLES: The sulci and ventricles are normal in size and position for the patient's stated age. CEREBRUM: There is right temporal encephalomalacia consistent with remote infarct similar to July 23, 2016. BRAINSTEM: There are no focal parenchymal abnormalities. CEREBELLUM: There are no focal parenchymal abnormalities. VESSELS: The vessels are grossly normal. PARANASAL SINUSES: The paranasal sinuses are clear. ORBITS: The orbits are unremarkable. BONES AND SOFT TISSUE: No bone or soft tissue abnormalities are noted. OTHER: None IMPRESSION: NO ACUTE INTRACRANIAL PATHOLOGY. STABLE RIGHT TEMPORAL ENCEPHALOMALACIA
--- NOTE | 2017-06-21 15:22 | RAD ---
HISTORY: Shortness of breath COMPARISONS: July 23, 2016 VIEWS: 1: frontal portable view of the chest at 2:30 PM FINDINGS: LINES AND TUBES: None. CARDIOMEDIASTINAL SILHOUETTE: The cardiomediastinal silhouette is normal for portable technique. PLEURA: The costophrenic angles are sharp. No pleural abnormalities are noted. LUNG PARENCHYMA: The lungs are clear. ABDOMEN: The upper abdomen is clear. There is no subphrenic gas. BONES AND SOFT TISSUES: No bone or soft tissue abnormalities are noted. IMPRESSION: NO ACTIVE CARDIOPULMONARY DISEASE.
[2017-06-21] MEDS: NS 0.9% 1000 ML* 2,000 ML IV ONE ×2 (16:06→17:35)
--- NOTE | 2017-06-21 17:21 | RAD ---
CLINICAL HISTORY: Left upper quadrant pain COMPARISON: None TECHNIQUE: Multiple contiguous axial CT scans were obtained of the abdomen and pelvis, without intravenous contrast enhancement. Coronal and sagittal multiplanar reformations are submitted for review. Oral contrast was administered. FINDINGS: The study is limited by the lack of intravenous contrast. This limits evaluation of the solid organs and vasculature. LUNG BASES: There are multiple nodules of the lung bases bilaterally measuring up to 0.6 in meters in size. LIVER: There is an ill-defined low-attenuation lesion of the right lobe of liver on axial image 23 measuring 3.7 cm in size. BILE DUCTS: There is mild pneumobilia. The patient appears to be status post choledochojejunostomy. There is reflux of oral contrast into the biliary tree GALLBLADDER: The gallbladder is not visualized. PANCREAS: The pancreas is normal, without mass or ductal dilatation. SPLEEN: Normal in size and appearance. UPPER GI TRACT: Evaluation of the gastrointestinal tract is limited by incomplete gastric distention. There is post surgical change to the projected tract. SMALL BOWEL AND MESENTERY: There is postsurgical change to the small bowel. COLON: The patient is to be status post colectomy with ileoanal pull-through. ADRENALS: Normal bilaterally. KIDNEYS: The kidneys are normal in shape, size, contour, and axis. There is no hydronephrosis or nephrolithiasis. BLADDER: The bladder is smooth in contour. PELVIC ORGANS: The uterus and adnexa are grossly normal for technique. AORTA: There is calcific atherosclerotic disease of the abdominal aorta and its branches, without aneurysmal dilatation IVC: Unremarkable LYMPH NODES: There are multiple enlarged lymph nodes of the right. No space and of the small bowel and upper abdominal mesentery ABDOMINAL WALL: There is no evidence for abdominal wall hernia. BONES AND SOFT TISSUES: Degenerative changes are noted of the spine. There is a rounded lucent lesion of the T12 vertebral body OTHER: None IMPRESSION: 1. THERE IS POST SURGICAL CHANGE TO THE GI TRACT. 2. THERE IS EXTENSIVE MESENTERIC AND RETROPERITONEAL LYMPHADENOPATHY. THERE ARE MULTIPLE PULMONARY PARENCHYMAL NODULES. ADDITIONALLY, THERE IS LOW-ATTENUATION LESION OF THE RIGHT LOBE OF LIVER. GIVEN THE HISTORY OF MALIGNANCY, THE APPEARANCE IS MOST CONSISTENT WITH METASTATIC DISEASE. RECOMMEND COMPARISON TO ANY PREVIOUS IMAGING IF AVAILABLE. 3. THERE IS A LUCENT LESION OF THE T12 VERTEBRAL BODY WHICH MAY REPRESENT A SCHMORL'S NODE, THOUGH GIVEN THE HISTORY OF MALIGNANCY A SMALL OSTEOLYTIC METASTASIS IS WITHIN THE DIFFERENTIAL..
[2017-06-21] MEDS ORDERED: NS 0.9% 1000 ML* 2,000 ML IV ONE (20:48)
[2017-06-21 22:15] LABS: Hematocrit 28 % (35-47); Hemoglobin 9.4 g/dl (12.0-16.0); Mean Corpuscular HGB Conc 34 g/dl (31-36); Mean Corpuscular Hemoglobin 31 pg (27-31); Mean Corpuscular Volume 93 fL (80-97); Mean Platelet Volume 9 um3 (7.4-10.4); Red Blood Count 3.01 10^6/ul (4.0-5.4); Red Cell Distribution Width 15 % (10.5-15); White Blood Count 3.9 10^3/ul (3.5-10.8)
--- NOTE | 2017-06-21 22:16 | ED ---
Shawna Canas SooYoung, scribed for Hesham Desai MD on 06/21/17 at 1407 . Complex/Multi-Sys Presentation - HPI Summary HPI Summary: A 61 y/o F presents to the ED with c/o abd pain onset three days ago. She states she has gastroenteritis. Associated sx: nausea, dyspnea. Denies v/d, dysuria, back pain. Per friend, pt was confused this AM, pt didn't know if it was day or night; and in the afternoon, pt was dizzy, weak and had an unsteady gait. Food and drink irritate her stomach. PMHx: Thyroidectomy, colon CA with resection, cholecystectomy. - History Of Current Complaint Chief Complaint: EDGeneral Time Seen by Provider: 06/21/17 13:52 Hx Obtained From: Patient, Family/Pastor - friend / roommate Onset/Duration: Lasting Days, Still Present Timing: Constant Severity Currently: Moderate Severity Initially: Moderate Associated Signs And Symptoms: Positive: Confusion, Dizziness, Weakness, Nausea , Other - pos: dyspnea, unsteady gait. Negative: Vomiting, Diarrhea, Back Pain , Dysuria - Allergies/Home Medications Allergies/Adverse Reactions: Allergies Allergy/AdvReac Type Severity Reaction Status Date / Time No Known Allergies Allergy Verified 10/05/12 06:09 PMH/Surg Hx/FS Hx/Imm Hx Previously Healthy: No Endocrine/Hematology History: Reports: Hx Thyroid Disease - removed, thyroid CA hx Cardiovascular History: Reports: Hx Hypertension Denies: Hx Pacemaker/ICD GI History: Reports: Other GI Disorders - colectomy c/Jpouch Sensory History: Reports: Hx Contacts or Glasses Denies: Hx Hearing Aid Opthamlomology History: Reports: Hx Contacts or Glasses Psychiatric History: Reports: Hx Anxiety, Hx Depression, Hx Schizophrenia - Schizoaffective type, Other Psychiatric Issues/Disorders - increase in confusion /pt cognition at baseline unclear at present time Denies: Hx Panic Disorder - Cancer History Cancer Type, Location and Year: thyroid cancer,colon cancer Hx Chemotherapy: Yes - Surgical History Surgery Procedure, Year, and Place: Colectomy c/Jpouch, Whipple, thyroidectomy, HUMERUS FX Hx Anesthesia Reactions: No Infectious Disease History: No Infectious Disease History: Denies: Traveled Outside the [place] in Last 30 Days - Family History Known Family History: Positive: Other - Familial adenomatous polyposis - Social History Occupation: Unemployed Lives: Dormitory/Roommates Alcohol Use: None Substance Use Type: Reports: None Smoking Status (MU): Never Smoked Tobacco Review of Systems Positive: Other - pos: dyspnea Positive: Abdominal Pain, Nausea Negative: dysuria Negative: Other - neg: back pain Neurological: Other - pos: confusion, dizzy, unsteady gait Positive: Weakness All Other Systems Reviewed And Are Negative: Yes Physical Exam Triage Information Reviewed: Yes Vital Signs On Initial Exam: Initial Vitals Temp Pulse Resp BP Pulse Ox 98.1 F 103 14 102/64 96 06/21/17 12:51 06/21/17 12:51 06/21/17 12:51 06/21/17 12:51 06/21/17 12:51 Vital Signs Reviewed: Yes Appearance: Positive: Well-Appearing, No Pain Distress Skin: Positive: Warm, Skin Color Reflects Adequate Perfusion, Dry Head/Face: Positive: Normal Head/Face Inspection Eyes: Positive: EOMI, NEETU ENT: Positive: Normal ENT inspection, Other - oral mucosa moist Neck: Positive: Supple, Nontender Respiratory/Lung Sounds: Positive: Clear to Auscultation, Breath Sounds Present Cardiovascular: Positive: RRR Abdomen Description: Positive: Soft, Other: - minimal tenderness to L-side abd Bowel Sounds: Positive: Hypoactive Musculoskeletal: Positive: Normal, Strength/ROM Intact Neurological: Positive: Normal, Sensory/Motor Intact, Alert, Oriented to Person Place, Time Psychiatric: Positive: Affect/Mood Appropriate Procedures - Procedure Summary Procedure Summary: ULTRASOUND GUIDED STERILE RIGHT FEMORAL STICK WAS PERFORMED BY MYSELF TO OBTAIN VENOUS BLOOD FOR LAB WORK Diagnostics - Vital Signs Vital Signs Temp Pulse Resp BP Pulse Ox 06/21/17 12:51 98.1 F 103 14 102/64 96 - Laboratory Lab Statement: Any lab studies that have been ordered have been reviewed, and results considered in the medical decision making process. - Radiology CXR Xray Interpretation: No Acute Changes - IMPRESSION: No active cardiopulmonary dz. ED physician has reviewed this radiology report and agrees. Radiology Interpretation Completed By: Radiologist - CT Brain CT CT Interpretation: No Acute Changes - IMPRESSION: NO ACUTE INTRACRANIAL PATHOLOGY. STABLE RIGHT TEMPORAL ENCEPHALOMALACIA. ED physician has reviewed this radiology report and agrees. CT Interpretation Completed By: Radiologist ABD/PEL CT CT Interpretation: Positive (See Comments) - IMPRESSION: 1. THERE IS POST SURGICAL CHANGE TO THE GI TRACT. 2. THERE IS EXTENSIVE MESENTERIC AND RETROPERITONEAL LYMPHADENOPATHY. THERE ARE MULTIPLE PULMONARY PARENCHYMAL NODULES. ADDITIONALLY, THERE IS LOW-ATTENUATION LESION OF THE RIGHT LOBE OF LIVER. GIVEN THE HISTORY OF MALIGNANCY, THE APPEARANCE IS MOST CONSISTENT WITH METASTATIC DISEASE. RECOMMEND COMPARISON TO ANY PREVIOUS IMAGING IF AVAILABLE. 3. THERE IS A LUCENT LESION OF THE T12 VERTEBRAL BODY WHICH MAY REPRESENT A SCHMORL'S NODE, THOUGH GIVEN THE HISTORY OF MALIGNANCY A SMALL OSTEOLYTIC METASTASIS IS WITHIN THE DIFFERENTIAL. ED physician has reviewed this radiology report and agrees. CT Interpretation Completed By: Radiologist - EKG 1427 Cardiac Rate: NL - 84bpm EKG Rhythm: Sinus Rhythm ST Segment: Normal Ectopy: None Re-Evaluation - Re-Evaluation 1 Re-Evaluation Time: 20:49 Change: Unchanged Comment: Discussing results with pt. Discussing options for obtaining bloodwork , as various methods have been exhausted. Complex Multi-Symp Course/Dx Course Of Treatment: A 61 y/o F presents to the ED with c/o abd pain onset three days ago. She states she has gastroenteritis. Associated sx: nausea, dyspnea. Denies v/d, dysuria, back pain. Per friend, pt was confused this AM, pt didn't know if it was day or night; and in the afternoon, pt was dizzy, weak and had an unsteady gait. Food and drink irritate her stomach. PMHx: Thyroidectomy, colon CA with resection, cholecystectomy. Medications reviewed. Brain CT shows "NO ACUTE INTRACRANIAL PATHOLOGY. STABLE RIGHT TEMPORAL ENCEPHALOMALACIA.". LAB WORK RESULTS PENDING AT DISCHARGE. CRITICAL CARE TIME LESS THAN 30 MINUTES. - Diagnoses Provider Diagnoses: Altered mental state, Abdominal pain, Dehydration Discharge - Discharge Plan Condition: Stable Disposition: OTHER Discharge Disposition Comment: . Referrals: Laura Melo MD [Primary Care Provider] - The documentation as recorded by the Shawna tripathi SooYoung accurately reflects the service I personally performed and the decisions made by me, Hesham Desai MD.
[2017-06-21 22:22] LABS: ALT 8 U/L (7-52); AST 16 U/L (13-39); Alkaline Phosphatase 67 U/L (34-104); Anion Gap 7 mmol/L (2-11); BUN/Creatinine Ratio 7.6 (8-20); Blood Urea Nitrogen 12 mg/dL (6-24); C Reactive Protein 75.25 mg/L (< 5.00); CO2 Carbon Dioxide 15 mmol/L (22-32); Calcium 8.2 mg/dL (8.6-10.3); Chloride 101 mmol/L (101-111); Creatine Kinase 54 U/L (10-223); EGFR African American 43.1 (>60); EGFR Non-African American 33.5 (>60); Glucose 105 mg/dL (70-100); Lipase 456 U/L (11.0-82.0); Potassium 3.4 mmol/L (3.5-5.0); Sodium 123 mmol/L (133-145)
[2017-06-21 22:24] LABS: Troponin I 0.03 ng/mL (<0.04)
[2017-06-21 22:33] LABS: Acetaminophen < 15 mcg/mL
[2017-06-21] MEDS ORDERED: Magnesium Sulfate 2 GM IV* 2 GM/50 ML BAG IVPB ONE (22:43)
[2017-06-21 22:49] LABS: TSH (Thyroid Stimulating Horm) 3.33 mcIU/mL (0.34-5.60)
--- NOTE | 2017-06-22 00:10 | HP ---
H&P (Free Text) History and Physical: PCP: Dylan Melo MD Date/Time: 06/22/2017 0010 CC: confusion HPI: Mrs Yung is a simple 61YO female HX schizophrenia, thyroid CA, colon CA, & ampullary CA who awoke this AM feeling confused, thinking it was night at 0700. She also noted fatigue & generalized weakness. She decided to go to the [employer], but en route became light-headed and decided to be evaluated. She admits to some SOB, nausea, & heartburn which she refers to as gastroenteritis, but denies chest pain, palpitations, focal W/N/T, F/C, cough, congestion, sweats, or abdominal pain. She then states, "The only place it hurts is here." and motions to her LUQ. She denies change in bowel/bladder or B/ U/F of urine. 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 HTN CKD stg 3b anemia schizophrenia depression Ambulatory Orders FLUoxetine CAP* [Prozac CAP*] 30 mg PO QAM 10/04/12 Liothyronine TAB* [Cytomel TAB*] 5 mcg PO BID 10/04/12 risperiDONE TAB* [Risperdal*] 1 mg PO BEDTIME 10/04/12 Levothyroxine TAB* [Synthroid 150 MCG TAB*] 150 mcg PO DAILY 07/23/16 Amlodipine Besylate 5 mg PO DAILY 02/20/17 Aspirin [Aspirin Adult Low Dose 81 MG] 81 mg PO DAILY 02/20/17 Allergies No Known Allergies Allergy (Verified 06/21/17 23:12) PSurgHx total colectomy w/ ilial pouch for familial polyposis coli Whipple 2nd ampullary carcinoma thryroidectomy 2nd thyroid CA SocHx: no tobacco, alcohol, or recreational drug HX; lives with a [employer]ec[employer]ism group in [place]; full code status FamHx: Mother passed in her 70s 2nd CHF. Father passed in his 90s 2nd uncertain causes. ROS: as above, otherwise reviewed and all were negative vitals: Vital Signs Temp 36.7 C 06/21/17 12:51 Pulse 87 06/21/17 22:00 Resp 16 06/21/17 22:00 BP 140/90 06/21/17 21:00 Pulse Ox 100 06/21/17 22:00 Intake & Output 06/21/17 06/21/17 06/22/17 11:59 23:59 11:59 Intake Total 3000 Balance 3000 Weight 59.874 kg Intake: IV Fluids 3000 Constitutional: NAD, normally developed, overweight white female appearing older than her reported age HEENM: atraumatic; sclera/conjunctiva: non-icteric/clear; hearing: clinically intact; oropharynx: clear, mucosa moist Neck: soft tissue: non-tender; thyroid: surgically absent, no residual mass Pulmonary: clear to auscultation bilaterally, good aeration, no accessory muscle use CV: RR/RR, normal S1S2, no carotid bruit, no jugular venous distention, 2+ B DP/ PT, no edema Abdominal: soft, non-distended, non-tender, no rebound/guarding/rigidity, normoactive bowel sounds, no hepatosplenomegaly or masses, no costovertebral angle tenderness Musculoskeletal: general: grossly intact, no palpable tenderness Integumental: normal appearance and texture of exposed skin Psychiatric orientation: AA&O to PPS affect: flat mood: cooperative eye contact: fair to poor content: seemingly reliable responses: timely insight: fair to poor Testing: Lab Results 06/21/17 06/21/17 06/21/17 Range/Units 21:50 21:50 21:50 WBC (3.5-10.8) 10^3/ul RBC (4.0-5.4) 10^6/ul Hgb (12.0-16.0) g/dl Hct (35-47) % MCV (80-97) fL MCH (27-31) pg MCHC (31-36) g/dl RDW (10.5-15) % Plt Count (150-450) 10^3/ul MPV (7.4-10.4) um3 Neut % (Auto) (38-83) % Lymph % (Auto) (25-47) % [place] % (Auto) (1-9) % Eos % (Auto) (0-6) % Baso % (Auto) (0-2) % Absolute Neuts (auto) (1.5-7.7) 10^3/ul Absolute Lymphs (auto) (1.0-4.8) 10^3/ul Absolute Monos (auto) (0-0.8) 10^3/ul Absolute Eos (auto) (0-0.6) 10^3/ul Absolute Basos (auto) (0-0.2) 10^3/ul Absolute Nucleated RBC 10^3/ul Nucleated RBC % INR (Anticoag Therapy) 0.92 (0.89-1.11) APTT 16.6 L (26.0-36.3) seconds Sodium 123 L (133-145) mmol/L Potassium 3.4 L (3.5-5.0) mmol/L Chloride 101 (101-111) mmol/L Carbon Dioxide 15 L (22-32) mmol/L Anion Gap 7 (2-11) mmol/L BUN 12 (6-24) mg/dL Creatinine 1.57 H (0.51-0.95) mg/dL Est GFR ( Amer) 43.1 (>60) Est GFR (Non-Af Amer) 33.5 (>60) BUN/Creatinine Ratio 7.6 L (8-20) Glucose 105 H (70-100) mg/dL Lactic Acid (0.5-2.0) mmol/L Calcium 8.2 L (8.6-10.3) mg/dL Magnesium 1.0 L (1.9-2.7) mg/dL Total Bilirubin 0.40 (0.2-1.0) mg/dL AST 16 (13-39) U/L ALT 8 (7-52) U/L Alkaline Phosphatase 67 (34-104) U/L Total Creatine Kinase 54 (10-223) U/L CK-MB (CK-2) 1.2 (0.6-6.3) ng/mL Troponin I 0.03 (<0.04) ng/mL C-Reactive Protein 75.25 H (< 5.00) mg/L B-Natriuretic Peptide 43 ( - 100) pg/mL Total Protein 6.0 L (6.4-8.9) g/dL Albumin 3.0 L (3.2-5.2) g/dL Globulin 3.0 (2-4) g/dL Albumin/Globulin Ratio 1.0 (1-3) Lipase 456 H (11.0-82.0) U/L TSH 3.33 (0.34-5.60) mcIU/mL Acetaminophen < 15 mcg/mL 06/21/17 06/21/17 Range/Units 21:50 21:50 WBC 3.9 (3.5-10.8) 10^3/ul RBC 3.01 L (4.0-5.4) 10^6/ul Hgb 9.4 L (12.0-16.0) g/dl Hct 28 L (35-47) % MCV 93 (80-97) fL MCH 31 (27-31) pg MCHC 34 (31-36) g/dl RDW 15 (10.5-15) % Plt Count 229 (150-450) 10^3/ul MPV 9 (7.4-10.4) um3 Neut % (Auto) 71.0 (38-83) % Lymph % (Auto) 15.2 L (25-47) % Furn[place] % (Auto) 11.7 H (1-9) % Eos % (Auto) 1.8 (0-6) % Baso % (Auto) 0.3 (0-2) % Absolute Neuts (auto) 2.8 (1.5-7.7) 10^3/ul Absolute Lymphs (auto) 0.6 L (1.0-4.8) 10^3/ul Absolute Monos (auto) 0.5 (0-0.8) 10^3/ul Absolute Eos (auto) 0.1 (0-0.6) 10^3/ul Absolute Basos (auto) 0 (0-0.2) 10^3/ul Absolute Nucleated RBC 0 10^3/ul Nucleated RBC % 0 INR (Anticoag Therapy) (0.89-1.11) APTT (26.0-36.3) seconds Sodium (133-145) mmol/L Potassium (3.5-5.0) mmol/L Chloride (101-111) mmol/L Carbon Dioxide (22-32) mmol/L Anion Gap (2-11) mmol/L BUN (6-24) mg/dL Creatinine (0.51-0.95) mg/dL Est GFR ( Amer) (>60) Est GFR (Non-Af Amer) (>60) BUN/Creatinine Ratio (8-20) Glucose (70-100) mg/dL Lactic Acid 0.5 (0.5-2.0) mmol/L Calcium (8.6-10.3) mg/dL Magnesium (1.9-2.7) mg/dL Total Bilirubin (0.2-1.0) mg/dL AST (13-39) U/L ALT (7-52) U/L Alkaline Phosphatase (34-104) U/L Total Creatine Kinase (10-223) U/L CK-MB (CK-2) (0.6-6.3) ng/mL Troponin I (<0.04) ng/mL C-Reactive Protein (< 5.00) mg/L B-Natriuretic Peptide ( - 100) pg/mL Total Protein (6.4-8.9) g/dL Albumin (3.2-5.2) g/dL Globulin (2-4) g/dL Albumin/Globulin Ratio (1-3) Lipase (11.0-82.0) U/L TSH (0.34-5.60) mcIU/mL Acetaminophen mcg/mL ECG, personally reviewed: NSR rate 84, non-specific T-wave flattening V5-6 & I, <[address] elevation isolated to III CXR, personally reviewed: IMPRESSION: NO ACTIVE CARDIOPULMONARY DISEASE. CT brain WO, personally reviewed: IMPRESSION: NO ACUTE INTRACRANIAL PATHOLOGY. STABLE RIGHT TEMPORAL ENCEPHALOMALACIA CT abd/pel WO, personally reviewed: IMPRESSION: 1. THERE IS POST SURGICAL CHANGE TO THE GI TRACT. 2. THERE IS EXTENSIVE MESENTERIC AND RETROPERITONEAL LYMPH- ADENOPATHY. THERE ARE MULTIPLE PULMONARY PARENCHYMAL NODULES. ADDITIONALLY, THERE IS LOW-ATTENUATION LESION OF THE RIGHT [facility] IMAGING LOBE OF LIVER. GIVEN THE HISTORY OF MALIGNANCY, THE APPEARANCE IS MOST CONSISTENT WITH METASTATIC DISEASE. RECOMMEND COMPARISON TO ANY PREVIOUS IMAGING IF AVAILABLE. 3. THERE IS A LUCENT LESION OF THE T12 VERTEBRAL BODY WHICH MAY REPRESENT A SCHMORL'S NODE, THOUGH GIVEN THE HISTORY OF MALIGNANCY A SMALL OSTEOLYTIC METASTASIS IS WITHIN THE DIFFERENTIAL. Impression: 61F HX schizophrenia, thyroid CA, colon CA, ampullary CA, & familial polyposis coli presenting with confusion, fatigue, & generalized weakness with CT abnormality suspicious for wide spread metastatic disease DIAGNOSIS & PLAN Primary suspect widespread metastatic disease : HX thyroid CA, colon CA, ampullary CA, & familial polyposis coli : consider CT guided lymph node BX in AM : consider oncology consultation in AM abdominal discomfort & mildly elevated lipase : pain not clinically customer development representative of pancreatitis : suspect this is 2nd metastatic disease : pain control PRN : trend lipase confusion : etiology uncertain : CT brain WO negative : MRI brain WO in AM normocytic anemia, worsened : previously macrocytic : check anemia labs : trend hypoNatremia : ? SIADH : trend hypoKalemia : replace & recheck profound Magnesemia : replace & recheck hypoalbuminemia : check prealbumin Secondary thyroid CA s/p throidectomy familial polyposis coli s/p total colectomy w/ ilial pouch ampullary carcinoma s/p Whipple : current picture is that of metatstatic disease, ? recurrence vs new primary hypothroidism, post-operative : continue levothyroxine & liothyronine CKD stg 3b : periodic monitoring HTN : continue amlodipine schizophrenia : continue risperidone depression : continue fluoxetine Admission Rational: inpatient for confusion & work up of suspected metastatic disease not anticipated to be completed w/i 48h DVTp: SCDs & heparin SQ Code Status: full HCP: sisterSilke
[2017-06-22] MEDS ORDERED: Acetaminophen TAB* 325 MG PO PRN (01:09)
[2017-06-22] MEDS ORDERED: oxyCODONE TAB* 5 MG TAB PO PRN (01:09)
[2017-06-22] MEDS ORDERED: Melatonin (NF) 3 MG TAB PO PRN (01:09)
[2017-06-22] MEDS ORDERED: Ondansetron INJ* 2 MG/ML VIAL IV PRN (01:09)
[2017-06-22] MEDS ORDERED: Potassium Chlor TAB* 20 MEQ TAB.ER PO ONE (01:12)
[2017-06-22] MEDS ORDERED: Magnesium Sulfate 2 GM IV* 2 GM/50 ML BAG IVPB ONE (01:12)
[2017-06-22] MEDS ORDERED: NS 0.9% 1000 ML* 1,000 ML IV SCH (01:15)
[2017-06-22 01:36] LABS: Iron < 15 ug/dL (50-212); Prealbumin 11 mg/dL (18-38); Total Iron Binding Capacity 209 mcg/dL (250-450); Transferrin 149 mg/dL (203-362)
[2017-06-22 01:46] LABS: Immature Retic Fraction 0.51
[2017-06-22 01:56] LABS: Ferritin 80.6 ng/mL (11-307)
[2017-06-22 02:00] LABS: Folate 11.26 ng/mL (>3.99)
[2017-06-22 02:01] LABS: Vitamin B12 > 1450 pg/mL (180-914)
[2017-06-22] MEDS: Omeprazole CAP* 20 MG PO SCH (06:07)
[2017-06-22] MEDS: Levothyroxine TAB* 150 MCG TAB PO SCH (08:04)
[2017-06-22 08:57] LABS: Hematocrit 32 % (35-47); Hemoglobin 10.6 g/dl (12.0-16.0); Mean Corpuscular HGB Conc 34 g/dl (31-36); Mean Corpuscular Hemoglobin 32 pg (27-31); Mean Corpuscular Volume 94 fL (80-97); Mean Platelet Volume 8 um3 (7.4-10.4); Red Blood Count 3.36 10^6/ul (4.0-5.4); Red Cell Distribution Width 15 % (10.5-15); White Blood Count 3.5 10^3/ul (3.5-10.8)
[2017-06-22 09:13] LABS: BUN/Creatinine Ratio 7.9 (8-20); Calcium 8.4 mg/dL (8.6-10.3); EGFR African American 49.6 (>60); EGFR Non-African American 38.5 (>60); Magnesium 2.4 mg/dL (1.9-2.7); Potassium 3.8 mmol/L (3.5-5.0)
[2017-06-22] MEDS ORDERED: fentaNYL* 50 MCG/ML 2 ML VIAL (100 MCG VIAL) ONE (09:57)
[2017-06-22] MEDS: FLUoxetine CAP* 10 MG PO SCH (09:57)
[2017-06-22] MEDS: amLODIPine TAB* 5 MG PO SCH (09:57)
[2017-06-22] MEDS: Liothyronine TAB* 5 MCG PO SCH ×2 (09:57→22:17)
[2017-06-22] MEDS: Docusate CAP* 100 MG PO SCH ×2 (09:59→22:14)
[2017-06-22] MEDS ORDERED: LORazepam INJ* 2 MG/ML 1 ML VIAL ONE (11:00)
--- NOTE | 2017-06-22 12:12 | RAD ---
INDICATION: Right lobe focal liver lesion. COMPARISON: CT abdomen pelvis dated 81 ANESTHESIA: Intravenous fentanyl and lidocaine injected locally. The benefits and risks of procedure explained to the patient and the patient signed informed consent. Multiple images of the liver were obtained and the right lobe liver lesion identified from previous imaging was located with sonographic imaging. A percutaneous tract was determined leading into the liver lesion in question. Color flow imaging did not show any pulsating arteries in the intended biopsy tract or within the intended liver parenchyma biopsy site. Prebiopsy ultrasound images were saved. A time out was performed before beginning the procedure. The patient was prepped and draped in the usual sterile fashion. The overlying skin, subcutaneous tissue and liver capsule were anesthetized with 1% lidocaine under sonographic guidance. Percutaneously and under sonographic control fine-needle aspiration was performed utilizing a 20-gauge spinal needle. Imaging was saved. The needle and syringe were provided to the attending cytopathologist who indicated the sample acquired was adequate for diagnosis. According to the same technique a second aspiration was acquired to ensure adequate cytologic volume. The post procedure ultrasound demonstrates no evidence of a large hematoma or perinephric fluid. The biopsy site was dressed with sterile gauze and direct manual pressure was held for 5 minutes. The patient tolerated procedure well without incident and was returned to her inpatient room in stable condition. IMPRESSION: Uncomplicated ultrasound-guided fine-needle aspiration of a liver lesion as described above.
--- NOTE | 2017-06-22 13:50 | PN ---
Subjective Date of Service: 06/22/17 Interval History: This is a 61 yo female with chronic schizophrenia and multiple malignancies who presented with c/o confusion and weakness with recent onset n/v after eating. CT scan demonstrated diffuse intra-abdominal and retroperitoneal LAD with liver lesions concerning for metastatic disease. Patient was also hyponatremic, hypokalemic and hypomagnesemic. This am, she reports feeling slightly weak. She is unsure about weight loss. Denies night sweats. She is unable to give a clear history about her prior oncology care, but does report she is not established with an oncologist currently. Objective Active Medications: Acetaminophen (Tylenol Tab*) 650 mg PO Q6H PRN PRN Reason: FEVER/PAIN Amlodipine Besylate (Norvasc Tab*) 5 mg PO DAILY [facility] Last Admin: 06/22/17 09:57 Dose: 5 mg Docusate Sodium (Colace Cap*) 200 mg PO BID [facility] Last Admin: 06/22/17 09:59 Dose: 200 mg Fluoxetine HCl (Prozac Cap*) 30 mg PO QAM [facility] Last Admin: 06/22/17 09:57 Dose: 30 mg Heparin Sodium (Porcine) (Heparin Vial(*)) 5,000 units SUBCUT Q8HR [facility] Sodium Chloride (Ns 0.9% 1000 Ml*) 1,000 mls @ 50 mls/hr IV PER RATE [facility] Levothyroxine Sodium (Synthroid Tab*) 150 mcg PO 0600 [facility] Last Admin: 06/22/17 08:04 Dose: 150 mcg Liothyronine Sodium (Cytomel Tab*) 5 mcg PO BID [facility] Last Admin: 06/22/17 09:57 Dose: 5 mcg Melatonin (Melatonin (Nf)) 3 mg PO BEDTIME PRN; Protocol PRN Reason: Sleep Omeprazole (Prilosec Cap*) 20 mg PO DAILY@0600 [facility] Last Admin: 06/22/17 06:07 Dose: 20 mg Ondansetron HCl (Zofran Inj*) 4 mg IV Q6H PRN PRN Reason: NAUSEA Last Admin: 06/22/17 10:19 Dose: 4 mg Oxycodone HCl (Roxycodone Tab*) 2.5 mg PO Q4H PRN PRN Reason: PAIN Risperidone (Risperdal*) 1 mg PO BEDTIME [facility] Vital Signs: Temp Pulse Resp BP Pulse Ox 98.5 F 107 16 148/81 97 06/22/17 12:58 06/22/17 12:58 06/22/17 12:58 06/22/17 12:58 06/22/17 12:58 Oxygen Devices in Use Now: None Appearance: Well appearing slightly disheveled appearing female in NAD. Respiratory: Symmetrical Chest Expansion and Respiratory Effort, Clear to Auscultation Cardiovascular: NL Sounds; No Murmurs; No JVD, RRR - slightly tachy Abdominal: NL Sounds; No Tenderness; No Distention Extremities: No Edema Skin: No Rash or Ulcers Neurological: Alert and Oriented x 3 Result Diagrams: 06/22/17 08:45 06/22/17 08:45 Assess/Plan/Problems-Billing Assessment: This is a 61 yo female with a history thyroid, colon and pancreatic malignancy s /p total colectomy with ileal pouch and Whipple procedure as well as chronic schizophrenia and CKD who presented with c/o confusion. CT concerning for metastatic process. - Patient Problems (1) weakness and confusion Comment: Acute complaints may be due to multiple electrolyte abnormalities that is likely related to GI loss secondary to nausea and vomiting CT of abd is concerning for likely metastatic process MRI brain is pending to eval for brain mets, CT neg Requesting PT consult to assess severity of weakness after electrolyte repletion (2) Abnormal CT of the abdomen Comment: CT abd/pelvis demonstrates intra-abdominal and retroperitoneal LAD with liver lesions Appreciate IR involvement, who completed liver bx this am with pathology pending Requested oncology consultation given appearance of CT with extensive malignancy history (3) Hyponatremia Comment: Likely secondary to hypovolemia Improving NS (4) Hypomagnesemia Comment: Repleted (5) Hypokalemia Comment: Repleted, likely secondary to GI loss (6) Malignancies Comment: h/o thyroid CA ~25 yrs ago - unsure of treatment history h/o colon CA ~25 yrs ago with familial polyposis s/p total colectomy with ileal pouch h/o pancreatic CA ~2002 s/p Whipple Not currently followed by oncology (7) Chronic kidney disease (CKD) Comment: Stage III, Cr near baseline (8) HTN (hypertension) Comment: Near normotensive now, hypertensive with bx procedure earlier today Cont amlodipine (9) Hypothyroid Comment: TSH 3.33 Cont current levothyroxine/liothyronine (10) Schizophrenia Comment: Chronic, no psychotic features Cont Risperdal (11) Full code status (12) DVT prophylaxis Comment: SQ heparin Status and Disposition: Inpatient. Pending oncology and PT consults
--- NOTE | 2017-06-22 16:17 | RAD ---
Indication: Confusion. History of thyroid and colon carcinoma. Assess for metastasis. Comparison: June 21, 2017 CT and July 24, 2016 MRI. Technique: [employer] 1.5 Kim [id number] with GEM suite. MRI brain without contrast. Report: Diffusion series is negative for acute or subacute ischemia. Susceptibility series is negative for stigmata of hemosiderin deposition to indicate previous hemorrhage. The cerebral sulci, ventricles, and basal cisterns are unremarkable. Unchanged encephalomalacia at the RIGHT temporal lobe most consistent with sequela of previous infarct. Few unchanged foci of increased T2 signal in the periventricular and subcortical white matter of the cerebral hemispheres most consistent with sequela of chronic small vessel ischemic disease. No suspicious intra-axial or extra-axial lesions to raise concern for metastasis within limits of noncontrast MRI. Preserved major intracranial flow-voids. Unremarkable orbital contents. Clear paranasal sinuses and mastoid air spaces. IMPRESSION: 1. No evidence for brain metastasis within limits of noncontrast MRI. No acute intracranial process evident. 2. Unchanged encephalomalacia at the RIGHT temporal lobe likely reflecting sequela of previous ischemic infarct. Stigmata of probable chronic small vessel ischemic disease without change.
[2017-06-22] MEDS ORDERED: risperiDONE TAB* 1 MG PO SCH (21:00)
--- NOTE | 2017-06-22 21:23 | RAD ---
INDICATION: Pulmonary nodules. Suspected metastatic cancer. History of thyroid and colon cancer. COMPARISON: June 21, [address] TECHNIQUE: Multidetector CT images were obtained from the lung apices to the upper abdomen. Evaluation of the viscera is limited without IV contrast. REPORT: Multiple small bilateral pulmonary nodules from the upper lung zones through the lung bases. Vibration Technician 0.5 cm nodule at the anterior basal segment of the RIGHT lower lobe adjacent to the major fissure reference image 38. Vibration Technician 0.5 cm nodule at the junction of the superior and anteromedial basal segments of the LEFT lower lobe reference image 30. Negative for pleural effusions. 1.7 cm short axis diameter LEFT supraclavicular lymph node new compared with a neck CT from July 23, 2016. 1.2 cm short axis LEFT axillary lymph node deep to the pectoralis minor muscle new compared with the 2016 CT. Additional LEFT axillary lymph nodes measuring up to 1.2 cm also new compared with the prior exam. Negative for mediastinal or hilar lymphadenopathy. Negative for cardiomegaly or pericardial effusion. Normal diameter thoracic aorta. Images through the upper abdomen are remarkable for pneumobilia and diffuse upper abdominal retroperitoneal and mesenteric lymphadenopathy. Healing fracture of the RIGHT ninth rib noted posterior laterally. Negative for suspicious osseous lesions. IMPRESSION: Multiple bilateral pulmonary nodules as well as supraclavicular and LEFT axillary lymphadenopathy suspicious for metastatic disease.
[2017-06-22] MEDS ORDERED: hydrALAZINE IV* 20 MG/ML VIAL IV SLOW PU PRN (22:15)
--- NOTE | 2017-06-22 23:06 | CONS ---
CC: Dr. Melo * CONSULTATION REPORT: DATE OF CONSULT: 06/22/17 REFERRING PROVIDER: COOKIE Aaron REASON FOR CONSULTATION: Liver mass. HISTORY OF PRESENT ILLNESS: Ms. Yung is a 61-year-old female, history of schizophrenia who resides semi-independently in a retirement. She awoke on the morning of 06/21/17 with confusion as well as generalized fatigue and weakness. She tried to go to the [employer], but then became lightheaded and instead diverted to the emergency room. Some shortness of breath. She also reported some abdominal pain over the past week in the right upper quadrant that she thought was a gastritis. Left upper quadrant pain. Denied any change in bowel patterns. On admission, she had CT of the brain that was negative and a CT of the abdomen and pelvis that showed a low density liver mass as well as multiple nodules in the lung bases bilaterally measuring 0.6 cm. She is status post Whipple and colon resection, but was noted to have multiple enlarged lymph nodes mesenteric and retroperitoneal as well as a loosened lesion in the T12 vertebral body. She had an MRI of the brain following the CT on 06/22/17 that was negative and had a ultrasound-guided biopsy of the liver mass. Preliminary report reveals malignancy. PAST MEDICAL HISTORY: 1. Family polyposis syndrome, status post total colectomy and ileal pouch in 1992. Subsequent endoscopy has shown polyps in the ileal pouch as well as gastric polyps. Last polyps removed in 2013. 2. Thyroidectomy for thyroid cancer in 1992. 3. Pancreatic cancer, thought to be 2002, status post Whipple. Ampullary carcinoma. 4. Hypertension. 5. Chronic renal disease, stage 3B. 6. Anemia. 7. Schizophrenia and depression. Lives in a retirement and is managed with Risperdal and fluoxetine. 8. Hypothyroidism. PAST SURGICAL HISTORY: As listed above, although we do not have specific dates. SOCIAL HISTORY: She is in a retirement, but does make her decisions independently, is in [place]. Full code. No smoking. No drinking. FAMILY HISTORY: Mother in her 70s of heart disease and father lived into his 90s. REVIEW OF SYSTEMS: As discussed in HPI. She has left upper quadrant abdominal pain. HEENT: Negative. Pulmonary: Some shortness of breath with exertion. Cardiac: Negative. GI: Right upper quadrant as noted above. Normal bowel function. : Negative. Musculoskeletal: Some mild arthritis, but no change recently, feeling generally weak. Neurologic: Chronic psychiatric medications , otherwise negative. Skin: Negative. Hematologic: Negative. PHYSICAL EXAM: Tachycardic on my exam. Heart rate about 130, temperature 98.5 , respirations 16, BP 148/81 on last vitals. HEENT: Mucosa moist. Conjunctivae pale. No cervical or supraclavicular lymphadenopathy. No active dental disease. Lungs: Clear to auscultation. Heart: Tachycardic, S1 and S2. No murmurs, rubs, or gallops. Abdomen: She is nontender to palpation, no hepatosplenomegaly. Good bowel sounds. Nodes: No peripheral lymphadenopathy. Extremities: She has long finger nails, but is reasonably well kempt. Good pulses x4. No clubbing, cyanosis. Neurologic: She is responsive, although poor historian. She understood diagnosis of cancer and chemotherapy. Full exam deferred, but she is grossly nonfocal. LABORATORY DATA/DIAGNOSTIC STUDIES: CT scan was reviewed and shows several suspicious lesions on the right lung base, one on the left. She has normal sized liver with a right lobe lesion inferiorly 3.8 x 2.6 cm. She is status post Whipple, pancreatic tail unremarkable. She has dilated loops and ileal patch with contrast going to the rectum, non-distended bladder. Benign- appearing lymph nodes from the groin, but she has extensive mesenteric lymphadenopathy, particularly peripancreatic On bone windows, she has reported there is a report of a loosened T12 image. I was not finding it. Labs, hemoglobin 10.6, MCV 94, white count 3.5 with normal differential, platelets 228, slight bandemia, about 28. She has got a creatinine of 1.39, and sodium 127, iron sat is 7% with a ferritin of 80. Normal LFTs. Normal LDH. Albumin of 3.0 and a preop albumin of 11, slightly elevated lipase at 365 and normal vitamin B12, normal thyroid studies. ASSESSMENT AND PLAN: A 61-year-old female, history of multiple malignancies, status post Whipple and colon resection. Question of Jimenez syndrome or inherited polyposis. Now presents with a liver mass and diffuse mesenteric lymphadenopathy. Preliminary report of the biopsy is an adenocarcinoma. Leading differential diagnosis would be a small bowel or upper GI tumor given her history and the pattern of spread, other malignancy is possible including bladder cancer, primary lung cancer, pancreatic cancer from the tail of the pancreas. I suspect this is a new malignancy given the time from her last oncologic surgery, but it could be latent recurrent disease. 1. Awaiting biopsy. We will send CEA, CA 19-9. 2. Check CT scan of the chest. 3. Discussed with the patient this is metastatic cancer requiring chemotherapy. She understood that and responded appropriately. We did not discuss prognosis as we do not have a diagnosis at this time. 4. She is iron deficient. We will consider oral iron in the future. 5. We will work on outpatient followup if she is able to be discharged prior to final pathology results coming back. [id number]/[facility] #: [id number] GAGE
[2017-06-23] MEDS: Omeprazole CAP* 20 MG PO SCH (05:44)
[2017-06-23] MEDS: Levothyroxine TAB* 150 MCG TAB PO SCH (05:44)
[2017-06-23] MEDS: FLUoxetine CAP* 10 MG PO SCH (08:33)
[2017-06-23] MEDS: amLODIPine TAB* 5 MG PO SCH (08:33)
[2017-06-23] MEDS: Liothyronine TAB* 5 MCG PO SCH (08:33)
[2017-06-23] MEDS: Docusate CAP* 100 MG PO SCH (08:33)
[2017-06-23 13:31] VITALS: BP 140/71
[2017-06-23] MEDS ORDERED: Heparin VIAL(*) 5000 UNITS/ML VIAL (FIVE THOUSAND) SUBCUT SCH (22:00)
--- NOTE | 2017-06-24 02:36 | DS ---
CC: Dr. Melo; Dr. Nolan * DISCHARGE SUMMARY: DATE OF ADMISSION: 06/22/17 DATE OF DISCHARGE: 06/23/17 PRIMARY CARE PROVIDER: Dr. Melo. CONSULTING ONCOLOGIST: Dr. Nolan. DISCHARGING PROVIDER: COOKIE Beavers SUPERVISING PHYSICIAN: Josh Braden MD * (DICTATED BY COOKIE BEAVERS) PRIMARY DISCHARGE DIAGNOSES: 1. 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 2. Hyponatremia, hypokalemia, and hypomagnesemia with complaints of weakness. 3. Nausea and vomiting. 4. Iron deficiency anemia. SECONDARY DISCHARGE DIAGNOSES: 1. Chronic schizophrenia, which appears to be well controlled without acute psychosis. 2. History of multiple malignancies including thyroid, colon and pancreatic. 3. History of total colectomy. 4. Chronic kidney disease without acute exacerbation. DISCHARGE MEDICATIONS: 1. Amlodipine 5 mg p.o. daily. 2. Aspirin 81 mg p.o. daily. 3. Fluoxetine 30 mg p.o. daily. 4. Levothyroxine 150 mcg p.o. daily. 5. Liothyronine 5 mcg p.o. twice daily. 6. Zofran 4 mg p.o. q.6 hours as needed for nausea. 7. Risperidone 1 mg p.o. at bedtime. Medication Changes: 1. Zofran p.r.n. 2. (Oral iron was not initiated at discharge due to her complaint of GI upset at this time, but can be addressed in the near future.) HOSPITAL IMAGIN. CT of the brain shows no acute pathology. There is stable right temporal encephalomalacia. 2. Chest x-ray shows no acute disease. 3. CT of the abdomen and pelvis shows postsurgical changes to the GI tract. There is extensive mesenteric and retroperitoneal lymphadenopathy and multiple pulmonary and parenchymal nodules as well as low attenuation lesion of the right lobe of the liver. There is also a loosened lesion of the T12 vertebral body, which may represent a small osteolytic lesion. 4. MRI of the brain demonstrates no evidence of metastasis, unchanged encephalomalacia of right temporal lobe likely reflecting sequelae of a prior ischemic infarct. 5. CT of the chest, shows multiple bilateral pulmonary nodules as well as supraclavicular and left axillary lymphadenopathy suspicious for metastatic disease. 6. Pathology results from a liver ultrasound-guided fine-needle aspiration is interpreted as metastatic adenocarcinoma compatible with ampullary primary origin. HOSPITAL COURSE: This is a 61-year-old female with chronic schizophrenia and multiple prior malignancies including thyroid, colon and pancreatic with history of colectomy and Whipple who presented to the emergency department with complaints of generalized weakness and some confusion with some associated dizziness or lightheadedness. The patient had reported for the last couple of weeks or so, she has had some intermittent nausea and vomiting after eating. She denied any specific abdominal pain or bloating or significant changes to her bowel habits. The CT scan of her abdomen and pelvis was completed in the emergency department, which demonstrated diffuse lymphadenopathy with associated liver and lung lesions. These findings especially in the setting of her history of malignancy were concerning for a new metastatic process. Initial labs also demonstrated hyponatremia with a sodium of 123, potassium of 3.4, creatinine 1.57, and magnesium of 1.0, CRP of 75 with a lipase of 456. The patient was subsequently admitted to the hospital for further evaluation of what appeared to be a new metastatic process and treatment of her metabolic derangements. The patient was hydrated with normal saline and her potassium and her magnesium were repleted. She underwent biopsy of one of her liver lesions and pathology eventually returned adenocarcinoma likely of an ampullary primary origin. Oncology was asked to consult in the inpatient setting prior to pathology results being finalized. They will plan to see her in the outpatient setting to further discuss treatment planning and prognosis, but this likely represents a recurrence of her prior ampullary malignancy. DISPOSITION AND FOLLOWUP PLAN: The patient is still slightly fatigued at the time of discharge, but she is able to eat and drink without nausea or vomiting. She was evaluated by Physical Therapy who felt that she was at her baseline functional status, which is independent in mobility. She will return home which is a semi- independent adult living situation. Only medication changes as needed Zofran. The patient would benefit from iron supplementation, but given her recent GI upset, this was held at this time, but can be addressed in the near future. Outpatient appointment was established with Dr. Nolan for 06/30. Her primary care provider's office was notified of her discharge and discussed new diagnosis with her primary nurse as well and followup with Dr. Melo was made for 07/01/17. COOKIE BEAVERS [id number]/[facility] #: [id number] [facility] MED[facility] CENTERFozia
== END 2017-06-23 14:30 | disposition home or self-care (01) ==
LOC: ED 12:36 → INTOOBSV 06-22 02:16 → SSU 06-22 02:16
PROVIDERS: ADMIT Hospitalist; ATTEND Internal Medicine
DX: C24.1 Malignant neoplasm of ampulla of Vater (principal); C78.89 Secondary malignant neoplasm of other digestive organs; R53.1 Weakness; R10.9 Unspecified abdominal pain; R79.9 Abnormal finding of blood chemistry, unspecified; R41.0 Disorientation, unspecified; D64.9 Anemia, unspecified; E87.1 Hypo-osmolality and hyponatremia; E83.42 Hypomagnesemia; R59.1 Generalized enlarged lymph nodes; E88.09 Other disorders of plasma-protein metabolism, not elsewhere classified; Z85.850 Personal history of malignant neoplasm of thyroid; E89.0 Postprocedural hypothyroidism; I12.9 Hypertensive chronic kidney disease with stage 1 through stage 4 chronic kidney disease, or unspecified chronic kidney disease; N18.3 Chronic kidney disease, stage 3 (moderate); F20.9 Schizophrenia, unspecified; Z79.899 Other long term (current) drug therapy; R06.00 Dyspnea, unspecified
CPT/HCPCS: 36415; 47000; 70450; 70551; 71010; 71250; 74176; 76942; 80048; 80053; 80329; 82140; 82378; 82550; 82553; 82607; 82728; 82746; 83540; 83550; 83605; 83615; 83690; 83735; 83880; 84134; 84443; 84484; 85025; 85045; 85610; 85730; 86140; 86301; 88172; 88173; 88305; 88341; 88342; 93005; 96361; 96365; 99223; 99285; A9270-GY; G0378; G0480; J2060; J2405; J3010; J3475

== ENCOUNTER 2017-07-07 07:20 | Day surgery (SDC) | payer BC ==
[~2017-07-07 07:20] MED LIST: Buffered Lidocaine 0.9% SYRIN* 5 ML/SYR SYRINGE INTRADERM ONE; NS 0.9% 1000 ML* 1,000 ML IV SCH
[2017-07-07] MEDS ORDERED: ceFAZolin 2 GM PREMIX (*) 2 GM/50 ML BAG IVPB ONE (07:29)
[2017-07-07] MEDS ORDERED: Buffered Lidocaine 0.9% SYRIN* 5 ML/SYR SYRINGE ONE (07:29)
[2017-07-07] MEDS ORDERED: Famotidine IV* 10 MG/ML 2 ML (20 mg) ONE (08:33)
[2017-07-07] MEDS ORDERED: Midazolam* 1 MG/ML 2 ML VIAL (2 MG) ONE (08:34)
[2017-07-07] MEDS ORDERED: Acetaminophen TAB* 325 MG PO PRN (08:41)
[2017-07-07] MEDS ORDERED: Lidocaine 1% MPF wEPI 200,000* 30 ML SDV ONE (08:52)
[2017-07-07] MEDS ORDERED: Propofol* 10 MG/ML 20 ML BTL IV PUSH ONE (09:16)
[2017-07-07] MEDS ORDERED: Lidocaine 2% PF * 5 ML VIAL ONE (09:16)
[2017-07-07] MEDS ORDERED: Ondansetron INJ* 2 MG/ML VIAL ONE (09:16)
[2017-07-07] MEDS ORDERED: fentaNYL* 50 MCG/ML 2 ML VIAL (100 MCG VIAL) ONE (09:25)
--- NOTE | 2017-07-07 10:24 | SURGPN ---
Brief Operative Note - Surgery Procedures: Procedures Pre-OP Diagnoses: metastatic liver cancer Post-op Diagnosis: same Procedure: Insertion of powerport Surgeon: Sim Asst: none Anethesia: local, MAC EBL: minimal IVF: minimal Specimen: none Drains: none 8Fr single lumen power port via R SCV
--- NOTE | 2017-07-07 11:17 | RAD ---
INDICATION: Status post Mediport placement COMPARISON: Chest x-ray June 21, 2017 TECHNIQUE: Single AP portable view of the chest was obtained. FINDINGS: Image quality is compromised due to the relative inferiority of a portable chest x-ray. There is been interval placement of a right subclavian vein Mediport with the tip terminating at the cavoatrial junction. The heart and mediastinum exhibit normal size and contour. The lungs are grossly clear. There is no pneumothorax. Visualized bones are normal for the patient's age. IMPRESSION: Interval placement of a right subclavian vein power port with the tip terminating at the cavoatrial junction and no right-sided pneumothorax.
[2017-07-07 11:26] VITALS: BP 125/45
--- NOTE | 2017-07-07 13:17 | RAD ---
INDICATION: RIGHT side PowerPort placement. COMPARISON: 1027 hours chest radiograph July 07, 2017 TECHNIQUE: 32.1 seconds fluoroscopy. FINDINGS: Spot image documents the tip of the RIGHT subclavian PowerPort at the level of the RIGHT atrium. IMPRESSION: Procedural fluoroscopy. CPT II Codes: 6045F
--- NOTE | 2017-07-08 01:32 | OP ---
CC: Terrell Nolan MD; Corky Santillan MD; Laura Melo MD; [facility] OPERATIVE REPORT: DATE OF OPERATION: 07/07/17 DATE OF : 55 SURGEON: Oscar Montemayor MD GENERAL DOC: None. ANESTHESIOLOGIST: Dr. Paz. ANESTHESIA: Local MAC anesthesia PRE-OP DIAGNOSIS: Metastatic cancer to the liver. POST-OP DIAGNOSIS: Metastatic cancer to the liver. OPERATIVE PROCEDURE: Insertion of PowerPort. ESTIMATED BLOOD LOSS: Minimal blood loss. FLUIDS: Minimal crystalloid fluid given. DRAINS: An 8-Belgian PowerPort inserted via the right subclavian vein. DESCRIPTION OF PROCEDURE: The patient was identified in the preoperative area, marked, consent sign ed, case discussed with her again. She was brought to the operating room and placed on the operatin g table in supine position. Gentle sedation was given. Sequential devices were placed in bilateral lower extremities. Preoperative antibiotics were given and the patient's right upper chest and neck were prepped and draped in the standard surgical fashion, a time-out was performed. Injection of lidocaine along the proposed incision and stick site was carried out. The subclavian ve in was accessed but only after on initial stick, accessed the subclavian artery. The needle was elza ckly withdrawn at that side. Once we got into the vein, wire was inserted and under fluoroscopy, wa s assured to be in the superior vena cava. An incision was made inferior to this and a pocket was made for the PowerPort. This wire was then br ought out into the incision site and the right subclavian vein was dilated with the given dilators u nder fluoroscopy. The 8-Belgian tubing was then inserted, it was cut to size and attached to the Pow erPort, and then placed into the pocket, sutured at the medial aspect and lateral aspect. Blood was aspirated and the port was flushed with injectable saline and then followed by heparinized saline. The skin incision was reapproximated with 3-0 Vicryl stitches and followed by 4-0 Monocryl subcutic ular stitches. Steri-Strips and sterile dressing were applied. The patient tolerated the procedure well and was transferred to the PACU in stable condition. [id number]/[facility] #: [id number]
== END 2017-07-07 11:46 | disposition home or self-care (01) ==
LOC: OR 07:20
PROVIDERS: ATTEND Surgery
DX: C78.7 Secondary malignant neoplasm of liver and intrahepatic bile duct (principal); C78.00 Secondary malignant neoplasm of unspecified lung; I10 Essential (primary) hypertension; N18.3 Chronic kidney disease, stage 3 (moderate); E03.9 Hypothyroidism, unspecified; D64.9 Anemia, unspecified; Z85.07 Personal history of malignant neoplasm of pancreas
CPT/HCPCS: 71010; 76000; C1788; J0690; J1642; J2001; J2250; J2405; J2704; J3010

== ENCOUNTER 2017-09-01 21:01 | Inpatient (IN) | payer BC ==
[2017-09-01 22:51] LABS: ABS Basophils 0 10^3/ul (0-0.2); ABS Eosinophils 0 10^3/ul (0-0.6); ABS Lymphocytes 0.3 10^3/ul (1.0-4.8); ABS Monocytes 0.2 10^3/ul (0-0.8); ABS Neutrophils 12.1 10^3/ul (1.5-7.7); ABS Nucleated RBC 0 10^3/ul; Eosinophil % 0 % (0-6); Hematocrit 24 % (35-47); Hemoglobin 7.8 g/dl (12.0-16.0); Lymphocyte % 2.7 % (25-47); Mean Corpuscular HGB Conc 33 g/dl (31-36); Mean Corpuscular Hemoglobin 30 pg (27-31); Mean Corpuscular Volume 92 fL (80-97); Mean Platelet Volume 8 um3 (7.4-10.4); Nucleated Red Blood Cells % 0; Platelet Count 77 10^3/ul (150-450); Red Blood Count 2.59 10^6/ul (4.0-5.4); Red Cell Distribution Width 18 % (10.5-15); White Blood Count 12.6 10^3/ul (3.5-10.8)
[2017-09-01 23:08] LABS: EGFR Non-African American 31.4 (>60)
[2017-09-02] MEDS ORDERED: Zolpidem TAB* 10 MG PO ONE (00:24)
[2017-09-02] MEDS ORDERED: Magnesium Sulfate IV* 3 GM in NS 0.9% 100 ML* 100 ML IVPB ONE (01:20)
[2017-09-02] MEDS ORDERED: Melatonin (NF) 3 MG TAB PO PRN (01:28)
[2017-09-02] MEDS ORDERED: Ondansetron INJ* 2 MG/ML VIAL IV PRN (01:28)
[2017-09-02] MEDS ORDERED: Acetaminophen TAB* 325 MG PO PRN (01:28)
[2017-09-02] MEDS ORDERED: Magnesium Sulfate 2 GM IV IVPB ONE (02:00)
[2017-09-02] MEDS ORDERED: Magnesium Sulfate 2 GM IV* 2 GM/50 ML BAG ONE (02:06)
[2017-09-02] MEDS ORDERED: Magnesium Sulfate 1 GM IV* 1 GM/100 ML BAG IV ONE (03:30)
--- NOTE | 2017-09-02 04:13 | HP ---
H&P (Free Text) History and Physical: PCP: Dylan Khan MD Date/Time: 09/02/2017 0100 CC: fever HPI: Mrs Yung is a 61YO female HX ampullary adenoCA metastatic to liver who awoke this AM with generalized weakness which persisted into the early afternoon. She called Sergio Nolan MD's office which advised her to monitor and call for any changes. She continued with stable generalized weakness until ~1900 when she developed a fever of 101F for which she called her oncology office again and was advised to present for evaluation. She reports her chronic diarrhea has been worse today, but denies abdominal pain, black/bloody content, headache, chest pain, SOB, cough, congestion, B/U/F of urine or other issues. Evaluation is notable for WBCs 12.6k 95.9% neutrophils, HGB 7.8, stable hypoNatremia of 129, stable creatinine of 1.66, lactic acid of 3.3, magnesium 1.3, & albumin 2.4. ANC is 12.1. PMedHx thyroid CA s/p thyroidectomy hypothyroidism, post-operative familial polyposis coli s/p total colectomy w/ ilial pouch ilial pouch anastamotic ulcer ampullary adenoCA s/p Whipple gastric polyps HTN CKD stg 3b anemia schizophrenia depression Ambulatory Orders Nursing to reconcile. FLUoxetine CAP* [Prozac CAP*] 30 mg PO QAM 10/04/12 Liothyronine TAB* [Cytomel TAB*] 5 mcg PO BID 10/04/12 risperiDONE TAB* [Risperdal*] 1 mg PO BEDTIME 10/04/12 Levothyroxine TAB* [Synthroid 150 MCG TAB*] 150 mcg PO QPM 07/23/16 Amlodipine Besylate 10 mg PO QAM 02/20/17 Aspirin [Aspirin Adult Low Dose 81 MG] 81 mg PO QPM 02/20/17 Ondansetron ODT TAB* [Zofran 4 MG Odt TAB*] 4 mg PO Q6H PRN #20 tab.odt Iron Polysaccharide Complex- [Iferex 150 Forte 150-25-1 mg-Mcg-mg] 1 cap PO QPM 07/03/17 Metoprolol Succinate [Toprol Xl] 50 mg PO QAM 07/03/17 D-Mannose 1 pow PO DAILY 07/22/17 Lorazepam [Ativan 0.5 MG TAB] 0.5 mg PO DAILY PRN 07/22/17 Omeprazole CAP* [Prilosec CAP* 20 MG] 20 mg PO DAILY 07/22/17 Allergies No Known Allergies Allergy (Verified 09/01/17 21:10) PSurgHx thyroidectomy 2nd thyroid CA Whipple 2nd ampullary adenoCA total colectomy w/ ilial pouch 2nd familial polyposis coli SocHx: no tobacco, alcohol, or recreational drugs; lives with a scientologist group in [place], full code status FamHx: Mother: in her 70s 2nd CHF; Father: in his 90s 2nd unknown cause ROS: as above, otherwise reviewed and all were negative vitals: Vital Signs Temp 36.6 C 09/02/17 03:28 Pulse 68 09/02/17 03:28 Resp 21 09/02/17 03:28 BP 155/62 09/02/17 03:28 Pulse Ox 98 09/02/17 03:28 Intake & Output 09/01/17 09/01/17 09/02/17 11:59 23:59 11:59 Weight 55.792 kg Constitutional: NAD, normally developed, well-nourished white female HEENM: atraumatic; sclera/conjunctiva: anicteric/clear; blephara: mild blepharitis s/ excessive tearing ? xerophthalmia; hearing: clinically intact; oropharynx: clear, mucosa tacky Neck: soft tissue: no nuchal rigidity; thyroid: surgically absent, non-tender Pulmonary: clear to auscultation bilaterally, good aeration, no accessory muscle use CV: RR/RR, normal S1S2, no carotid bruit, no jugular venous distention, 2+ B DP/ PT, 1+ BLE edema Abdominal: soft, non-distended, non-tender, no rebound/guarding/rigidity, normoactive bowel sounds, no hepatosplenomegaly or masses, no costovertebral angle tenderness Musculoskeletal: general: grossly intact, no tenderness to palpation Integumental: normal appearance and texture of exposed skin Psychiatric orientation: AA&O to PPS affect: calm mood: cooperative eye contact: poor content: reliable responses: timely insight: fair Testing: Lab Results 09/01/17 09/01/17 09/01/17 Range/Units 22:17 22:17 22:17 WBC 12.6 H (3.5-10.8) 10^3/ul RBC 2.59 L (4.0-5.4) 10^6/ul Hgb 7.8 L (12.0-16.0) g/dl Hct 24 L (35-47) % MCV 92 (80-97) fL MCH 30 (27-31) pg MCHC 33 (31-36) g/dl RDW 18 H (10.5-15) % Plt Count 77 L (150-450) 10^3/ul MPV 8 (7.4-10.4) um3 Neut % (Auto) 95.9 H (38-83) % Lymph % (Auto) 2.7 L (25-47) % Rhea % (Auto) 1.3 (1-9) % Eos % (Auto) 0 (0-6) % Baso % (Auto) 0.1 (0-2) % Absolute Neuts (auto) 12.1 H (1.5-7.7) 10^3/ul Absolute Lymphs (auto) 0.3 L (1.0-4.8) 10^3/ul Absolute Monos (auto) 0.2 (0-0.8) 10^3/ul Absolute Eos (auto) 0 (0-0.6) 10^3/ul Absolute Basos (auto) 0 (0-0.2) 10^3/ul Absolute Nucleated RBC 0 10^3/ul Nucleated RBC % 0 Sodium 129 L (133-145) mmol/L Potassium 4.2 (3.5-5.0) mmol/L Chloride 99 L (101-111) mmol/L Carbon Dioxide 21 L (22-32) mmol/L Anion Gap 9 (2-11) mmol/L BUN 16 (6-24) mg/dL Creatinine 1.66 H (0.51-0.95) mg/dL Est GFR ( Amer) 40.4 (>60) Est GFR (Non-Af Amer) 31.4 (>60) BUN/Creatinine Ratio 9.6 (8-20) Glucose 200 H (70-100) mg/dL Lactic Acid 3.3 H* (0.5-2.0) mmol/L Calcium 7.5 L (8.6-10.3) mg/dL Magnesium 1.3 L (1.9-2.7) mg/dL Total Bilirubin 0.80 (0.2-1.0) mg/dL AST 41 H (13-39) U/L ALT 17 (7-52) U/L Alkaline Phosphatase 183 H (34-104) U/L Total Protein 5.3 L (6.4-8.9) g/dL Albumin 2.4 L (3.2-5.2) g/dL Globulin 2.9 (2-4) g/dL Albumin/Globulin Ratio 0.8 L (1-3) Influenza A (Rapid) (Negative) Influenza B (Rapid) (Negative) 09/02/17 Range/Units 01:27 WBC (3.5-10.8) 10^3/ul RBC (4.0-5.4) 10^6/ul Hgb (12.0-16.0) g/dl Hct (35-47) % MCV (80-97) fL MCH (27-31) pg MCHC (31-36) g/dl RDW (10.5-15) % Plt Count (150-450) 10^3/ul MPV (7.4-10.4) um3 Neut % (Auto) (38-83) % Lymph % (Auto) (25-47) % Rhea % (Auto) (1-9) % Eos % (Auto) (0-6) % Baso % (Auto) (0-2) % Absolute Neuts (auto) (1.5-7.7) 10^3/ul Absolute Lymphs (auto) (1.0-4.8) 10^3/ul Absolute Monos (auto) (0-0.8) 10^3/ul Absolute Eos (auto) (0-0.6) 10^3/ul Absolute Basos (auto) (0-0.2) 10^3/ul Absolute Nucleated RBC 10^3/ul Nucleated RBC % Sodium (133-145) mmol/L Potassium (3.5-5.0) mmol/L Chloride (101-111) mmol/L Carbon Dioxide (22-32) mmol/L Anion Gap (2-11) mmol/L BUN (6-24) mg/dL Creatinine (0.51-0.95) mg/dL Est GFR ( Amer) (>60) Est GFR (Non-Af Amer) (>60) BUN/Creatinine Ratio (8-20) Glucose (70-100) mg/dL Lactic Acid (0.5-2.0) mmol/L Calcium (8.6-10.3) mg/dL Magnesium (1.9-2.7) mg/dL Total Bilirubin (0.2-1.0) mg/dL AST (13-39) U/L ALT (7-52) U/L Alkaline Phosphatase (34-104) U/L Total Protein (6.4-8.9) g/dL Albumin (3.2-5.2) g/dL Globulin (2-4) g/dL Albumin/Globulin Ratio (1-3) Influenza A (Rapid) Negative (Negative) Influenza B (Rapid) Negative (Negative) CXR, personally reviewed: new L pleural effusion compared to 06/2017 film Impression: 61F HX thyroid CA, ampullary adenoCA metastatic to liver presents with fever, generalized weakness, & new pleural effusion DIAGNOSIS & PLAN Primary fever & generalized weakness : blood CX : no clear indication for ABX, trend WBCs & temperature curves : anti-pyretics PRN : supportive care new pleural effusion : concerning for malignant effusion give HX thyroid & ampullary Butch : oncology to decide on work up in AM : consider thoracentesis for CX & cytology anemia, worse than baseline : stool for occult blood : trend H&H : type & screen hypoMagnesemia : replace & recheck suspect protein calorie malnutrition : check pre-albumin in AM Secondary thyroid CA s/p thyroidectomy ampullary adenoCA s/p Whipple : continue management per oncology familial polyposis coli s/p total colectomy w/ ilial pouch ilial pouch anastamotic ulcer : no acute issues hypothyroidism, post-operative : continue levothyroxine once reconciled HTN : review meds once reconciled CKD stg 3b : periodic monitoring schizophrenia : review meds once reconciled depression : review meds once reconciled Admission Rational: inpatient for fever, evaluation of new pleural effusion, severe hypoMagnesemia; not anticipating D/C w/i 48h DVTp: SCDs, no anticoagulation given worsening anemia Code Status: full HCP: sister, Silke
[2017-09-02] MEDS: NS 0.9% 1000 ML* 1,000 ML IV SCH ×2 (04:21→19:38)
--- NOTE | 2017-09-02 04:31 | ED ---
Leighann Canas Emily, scribed for Celina Chapman MD on 09/01/17 at 2252 . HPI Febrile Illness - HPI Summary HPI Summary: This patient is a 61 year old F presenting to [facility] accompanied by friend with a chief complaint of a fever that began at 1900 today. Pt was referred to [facility] on the advice of Dr. Nolan. The patient rates the pain 0/10 in severity. Symptoms aggravated by nothing. Symptoms alleviated by nothing. Patient reports weakness, diarrhea (chronic), cough, eye drainage, and abd pain. Patient denies dysuria, hematuria, hematochezia, headache, vomiting, blurred vision, diplopia, ear ache, sore throat, neck pain, CP, SOB, back pain, and melena. Pt is currently undergoing chemotherapy for lung and liver CA. Patients last chemo treatment was 6 days ago. Pt denies recent antibiotics. - History of Current Complaint Chief Complaint: EDFever Time Seen by Provider: 09/01/17 21:44 Hx Obtained From: Patient, Family/Golf Ball Trimmer Onset/Duration: Started Hours Ago, Still Present Timing: Constant, Lasting Hours Initial Severity: Mild Current Severity: Mild Pain Intensity: 0 Pain Scale Used: 0-10 Numeric Aggravating Factors: Nothing Alleviating Factors: Nothing Associated Signs and Symptoms: Other: - Positive weakness, diarrhea (chronic), cough, eye drainage, and abd pain. Negative dysuria, hematuria, hematochezia, headache, vomiting, blurred vision, diplopia, ear ache, sore throat, neck pain, CP, SOB, back pain, and melena - Additional Pertinent History Primary Care Physician: [id number] - Allergy/Home Medications Allergies/Adverse Reactions: Allergies Allergy/AdvReac Type Severity Reaction Status Date / Time No Known Allergies Allergy Verified 09/01/17 21:10 PMH/Surg Hx/FS Hx/Imm Hx Previously Healthy: No Endocrine/Hematology History: Reports: Hx Thyroid Disease - removed, thyroid CA hx, Hx Anemia Cardiovascular History: Reports: Hx Hypertension Denies: Hx Pacemaker/ICD GI History: Reports: Other GI Disorders - Familial polyposis, colectomy with ileal pouch, ampullary cancer, colon ca. Sensory History: Reports: Hx Contacts or Glasses Denies: Hx Hearing Aid Opthamlomology History: Reports: Hx Contacts or Glasses Neurological History: Reports: Hx Transient Ischemic Attacks (TIA), Other Neuro Impairments/Disorders - MENTAL HEALTH ISSUES? Psychiatric History: Reports: Hx Anxiety, Hx Depression, Hx Schizophrenia - Schizoaffective type, Other Psychiatric Issues/Disorders - increase in confusion /pt cognition at baseline unclear at present time Denies: Hx Panic Disorder - Cancer History Cancer Type, Location and Year: thyroid cancer,colon cancer Hx Chemotherapy: Yes - Surgical History Surgery Procedure, Year, and Place: Colectomy with ileal pouch; Whipple; thyroidectomy; left humerus ORIF Hx Anesthesia Reactions: No Infectious Disease History: No Infectious Disease History: Denies: Traveled Outside the [place] in Last 30 Days - Family History Known Family History: Positive: Other - Familial adenomatous polyposis - Social History Occupation: Employed Full-time Lives: With Family Alcohol Use: None Alcohol Amount: 1 drink/year Substance Use Type: Reports: None Smoking Status (MU): Never Smoked Tobacco Review of Systems Positive: Fever Positive: Drainage. Negative: Blurred Vision, Diplopia Negative: Sore Throat, Ear Ache Negative: Chest Pain Positive: Cough. Negative: Shortness Of Breath Positive: Abdominal Pain, Other - Negative hematochezia and melena. Negative: Vomiting Negative: dysuria, hematuria Positive: Other - Negative neck pain and back pain Positive: Weakness. Negative: Headache All Other Systems Reviewed And Are Negative: No Physical Exam - Summary Physical Exam Summary: Appearance: Alert, conversive, nontoxic appearing Skin: Warm, dry, no mottling, no rashes, no contusions HEENT: EOMI, PERRL, moist mucous membranes. Conjunctivitis. Discharge in both eyes. Deviation of the R eye. Neck: No masses on the neck, supple Respiratory: Clear to auscultation, breath sounds present, no rales, no rhonchi , no wheezes Cardiovascular: RRR, pulses are symmetrical in both lower and upper extremities Abdomen: Soft, non-tender Bowel Sounds: Present Musculoskeletal: No CVA tenderness, no obvious deformity. Generalized weakness. Neurological: A&Ox3, CN II-XII Intact, moving all extremities symmetrically Psychiatric: Normal affect and mood Triage Information Reviewed: Yes Vital Signs On Initial Exam: Initial Vitals Temp Pulse Resp BP Pulse Ox 98.4 F 95 16 125/80 95 09/01/17 21:04 09/01/17 21:04 09/01/17 21:04 09/01/17 21:04 09/01/17 21:04 Vital Signs Reviewed: Yes - Yolanda Coma Scale Coma Scale Total: 15 Diagnostics - Vital Signs Vital Signs Temp Pulse Resp BP Pulse Ox 09/01/17 21:04 98.4 F 95 16 125/80 95 - Laboratory Lab Results: Lab Results 09/01/17 09/01/17 09/01/17 Range/Units 22:17 22:17 22:17 WBC 12.6 H (3.5-10.8) 10^3/ul RBC 2.59 L (4.0-5.4) 10^6/ul Hgb 7.8 L (12.0-16.0) g/dl Hct 24 L (35-47) % MCV 92 (80-97) fL MCH 30 (27-31) pg MCHC 33 (31-36) g/dl RDW 18 H (10.5-15) % Plt Count 77 L (150-450) 10^3/ul MPV 8 (7.4-10.4) um3 Neut % (Auto) 95.9 H (38-83) % Lymph % (Auto) 2.7 L (25-47) % [place] % (Auto) 1.3 (1-9) % Eos % (Auto) 0 (0-6) % Baso % (Auto) 0.1 (0-2) % Absolute Neuts (auto) 12.1 H (1.5-7.7) 10^3/ul Absolute Lymphs (auto) 0.3 L (1.0-4.8) 10^3/ul Absolute Monos (auto) 0.2 (0-0.8) 10^3/ul Absolute Eos (auto) 0 (0-0.6) 10^3/ul Absolute Basos (auto) 0 (0-0.2) 10^3/ul Absolute Nucleated RBC 0 10^3/ul Nucleated RBC % 0 Sodium 129 L (133-145) mmol/L Potassium 4.2 (3.5-5.0) mmol/L Chloride 99 L (101-111) mmol/L Carbon Dioxide 21 L (22-32) mmol/L Anion Gap 9 (2-11) mmol/L BUN 16 (6-24) mg/dL Creatinine 1.66 H (0.51-0.95) mg/dL Est GFR ( Amer) 40.4 (>60) Est GFR (Non-Af Amer) 31.4 (>60) BUN/Creatinine Ratio 9.6 (8-20) Glucose 200 H (70-100) mg/dL Lactic Acid 3.3 H* (0.5-2.0) mmol/L Calcium 7.5 L (8.6-10.3) mg/dL Magnesium 1.3 L (1.9-2.7) mg/dL Total Bilirubin 0.80 (0.2-1.0) mg/dL AST 41 H (13-39) U/L ALT 17 (7-52) U/L Alkaline Phosphatase 183 H (34-104) U/L Total Protein 5.3 L (6.4-8.9) g/dL Albumin 2.4 L (3.2-5.2) g/dL Globulin 2.9 (2-4) g/dL Albumin/Globulin Ratio 0.8 L (1-3) Result Diagrams: 09/01/17 22:17 09/01/17 22:17 Lab Statement: Any lab studies that have been ordered have been reviewed, and results considered in the medical decision making process. - Radiology CXR Radiology Interpretation Completed By: ED Physician - CXR read by ED physician reveals large pleural effusion on the left. New since 07/07/2017 CXR. Course/Dx - Course Assessment/Plan: This patient is a 61 year old F presenting to [facility] accompanied by friend with a chief complaint of a fever that began at 1900 today. Pt was referred to [facility] on the advice of Dr. Nolan. Physical Exam Findings. Conjunctivitis. Discharge in both eyes. Deviation of the R eye. Generalized weakness. CXR reveals large pleural effusion on the left. . Slightly more anemic. Hemoglobin was 9.60 on the , now it is 7.8. Creatinine is slightly bumped. Sodium is low. Normal potassium. Alk Phos is higher than baseline at 183. High lactic acid of 3.3. We discussed patient care with Dr. Nolan and they recommended pt be admitted for further evaluation. The patient is agreeable with this plan. - Diagnoses Provider Diagnoses: Conjunctivitis, Weakness, Diarrhea, Pleural effusion - Provider Notifications Discussed Care Of Patient With: Terrell Nolan Time Discussed With Above Provider: 23:15 Instructed by Provider To: Other - Consult with Dr. Nolan (oncology) at 2315. He suggested pt be admitted for further evaluation. He recommended, since pit is not neutropenic, hold off on antibiotics. Consult with Dr. Martino ( hospitalist) at 1341. He agrees to admit pt. Discharge - Discharge Plan Condition: Fair Disposition: ADMITTED TO [facility] Referrals: Laura Melo MD [Primary Care Provider] - The documentation as recorded by the Leighann tripathi Emily accurately reflects the service I personally performed and the decisions made by , Celina Chapman MD.
--- NOTE | 2017-09-02 06:32 | RAD ---
INDICATION: Fever on chemotherapy COMPARISON: Similar CXR 07/07/17 TECHNIQUE: Single AP portable view of the chest was obtained. FINDINGS: Image quality is compromised due to the relative inferiority of a portable chest x-ray. Right subclavian mediport with the tip terminating at the SVC. The heart and mediastinum exhibit normal size and contour. Left lung base density is consistent with pleural effusion. The lungs are otherwise grossly clear. There is no evidence of a large pleural effusion. Visualized bones are normal for the patient's age. IMPRESSION: Density at left lung base could be consolidation and/or pleural effusion.
[2017-09-02 06:57] LABS: ABS Basophils 0 10^3/ul (0-0.2); ABS Eosinophils 0 10^3/ul (0-0.6); ABS Lymphocytes 0.6 10^3/ul (1.0-4.8); ABS Monocytes 0.1 10^3/ul (0-0.8); ABS Neutrophils 8.6 10^3/ul (1.5-7.7); ABS Nucleated RBC 0.01 10^3/ul; Eosinophil % 0 % (0-6); Hematocrit 20 % (35-47); Hemoglobin 6.7 g/dl (12.0-16.0); Lymphocyte % 6.5 % (25-47); Mean Corpuscular HGB Conc 34 g/dl (31-36); Mean Corpuscular Hemoglobin 31 pg (27-31); Mean Corpuscular Volume 90 fL (80-97); Mean Platelet Volume 8 um3 (7.4-10.4); Nucleated Red Blood Cells % 0.1; Red Blood Count 2.17 10^6/ul (4.0-5.4); Red Cell Distribution Width 17 % (10.5-15); White Blood Count 9.4 10^3/ul (3.5-10.8)
[2017-09-02 07:09] LABS: EGFR Non-African American 35.3 (>60)
[2017-09-02 07:18] LABS: Platelet Count 56 10^3/ul (150-450)
[2017-09-02] MEDS: Omeprazole CAP* 20 MG PO SCH (07:57)
[2017-09-02] MEDS: Docusate CAP* 100 MG PO SCH ×2 (07:57→19:19)
[2017-09-02 11:44] LABS: Urine Appearance Cloudy; Urine Blood Negative (Negative); Urine Color Amber; Urine Ketones Negative (Negative); Urine Protein 1+(30 mg/dL) (Negative); Urine Specific Gravity 1.018 (1.010-1.030); Urine Urobilinogen Negative (Negative)
[2017-09-02] MEDS: Cefepime 1 GM in Dextrose(*) 1 GM/50 ML BAG IV SCH (14:44)
[2017-09-02 14:54] LABS: ABS Basophils 0 10^3/ul (0-0.2); ABS Eosinophils 0 10^3/ul (0-0.6); ABS Lymphocytes 0.5 10^3/ul (1.0-4.8); ABS Monocytes 0.1 10^3/ul (0-0.8); ABS Neutrophils 6.7 10^3/ul (1.5-7.7); ABS Nucleated RBC 0 10^3/ul; Eosinophil % 0.1 % (0-6); Hematocrit 20 % (35-47); Lymphocyte % 7.4 % (25-47); Mean Corpuscular HGB Conc 34 g/dl (31-36); Mean Corpuscular Hemoglobin 30 pg (27-31); Mean Corpuscular Volume 91 fL (80-97); Mean Platelet Volume 8 um3 (7.4-10.4); Nucleated Red Blood Cells % 0.1; Red Blood Count 2.17 10^6/ul (4.0-5.4); Red Cell Distribution Width 17 % (10.5-15); White Blood Count 7.3 10^3/ul (3.5-10.8)
[2017-09-02 14:55] LABS: Hemoglobin 6.6 g/dl (12.0-16.0); Platelet Count 52 10^3/ul (150-450)
[2017-09-03] MEDS: hydrALAZINE IV* 20 MG/ML VIAL IV PRN ×2 (00:24→17:34)
[2017-09-03] MEDS: Cefepime 1 GM in Dextrose(*) 1 GM/50 ML BAG IV SCH ×2 (02:21→13:15)
[2017-09-03] MEDS: Omeprazole CAP* 20 MG PO SCH ×3 (05:49→22:07)
[2017-09-03] MEDS ORDERED: Heparin VIAL(*) 5000 UNITS/ML VIAL (FIVE THOUSAND) SUBCUT SCH (06:00)
[2017-09-03 06:25] LABS: EGFR Non-African American 39.2 (>60)
--- NOTE | 2017-09-03 08:55 | PN ---
Progress Note - Progress Note Date of Service: 09/03/17 SOAP: Subjective: feels better today than when she came in. eyes crusted shut "for some time". + acid reflux. having BMs. denies neuropathy Objective: Vital Signs Temp Pulse Resp BP Pulse Ox 98.3 F 83 16 166/73 98 09/03/17 07:57 09/03/17 07:57 09/03/17 07:57 09/03/17 07:57 09/03/17 07:57 eyes crusted with whitish exudate, mild conjunctival irritation op dry CTA anteriorly, poor effort s1 s2 nl soft nt +Bs, no clear hepatomegaly no le edema A+O x 3, slightly delayed grossly nonfocal left: ant cerv/supraclav matted fixed nodes ~3 nodes 2.5cm left axilla hard fixed 1.5 cm node Laboratory Results - last 24 hr 09/01/17 09/02/17 09/02/17 22:17 11:25 14:40 WBC 7.3 RBC 2.17 L Hgb 6.6 L Hct 20 L MCV 91 MCH 30 MCHC 34 RDW 17 H Plt Count 52 L D MPV 8 Neut % (Auto) 90.5 H Lymph % (Auto) 7.4 L [place] % (Auto) 1.8 Eos % (Auto) 0.1 Baso % (Auto) 0.2 Absolute Neuts (auto) 6.7 Absolute Lymphs (auto) 0.5 L Absolute Monos (auto) 0.1 Absolute Eos (auto) 0 Absolute Basos (auto) 0 Absolute Nucleated RBC 0 Nucleated RBC % 0.1 Sodium Potassium Chloride Carbon Dioxide Anion Gap BUN Creatinine Est GFR ( Amer) Est GFR (Non-Af Amer) BUN/Creatinine Ratio Glucose Calcium Urine Color Mary Urine Appearance Cloudy Urine pH 5.0 Ur Specific [place] 1.018 Urine Protein 1+(30 mg/dl) H Urine Ketones Negative Urine Blood Negative Urine Nitrate Negative Urine Bilirubin Negative Urine Urobilinogen Negative Ur Leukocyte Esterase 1+ H Urine WBC (Auto) 3+(>20/hpf) H Urine RBC (Auto) 2+(6-10/hpf) H Ur Squamous Epith Cells Present H Urine Bacteria 1+ H Hyaline Casts Present H Urine Glucose Negative Urine Ascorbic Acid * H Blood Type A Positive Antibody Screen Negative Crossmatch See Detail 09/03/17 05:47 WBC RBC Hgb Hct MCV MCH MCHC RDW Plt Count MPV Neut % (Auto) Lymph % (Auto) [place] % (Auto) Eos % (Auto) Baso % (Auto) Absolute Neuts (auto) Absolute Lymphs (auto) Absolute Monos (auto) Absolute Eos (auto) Absolute Basos (auto) Absolute Nucleated RBC Nucleated RBC % Sodium 126 L Potassium 3.9 Chloride 100 L Carbon Dioxide 21 L Anion Gap 5 BUN 19 Creatinine 1.37 H Est GFR ( Amer) 50.4 Est GFR (Non-Af Amer) 39.2 BUN/Creatinine Ratio 13.9 Glucose 133 H Calcium 6.9 L Urine Color Urine Appearance Urine pH Ur Specific [place] Urine Protein Urine Ketones Urine Blood Urine Nitrate Urine Bilirubin Urine Urobilinogen Ur Leukocyte Esterase Urine WBC (Auto) Urine RBC (Auto) Ur Squamous Epith Cells Urine Bacteria Hyaline Casts Urine Glucose Urine Ascorbic Acid Blood Type Antibody Screen Crossmatch Acetaminophen (Tylenol Tab*) 650 mg PO Q6H PRN PRN Reason: FEVER/PAIN Docusate Sodium (Colace Cap*) 200 mg PO BID [facility] Last Admin: 09/02/17 19:19 Dose: Not Given Hydralazine HCl (Apresoline Iv*) 10 mg IV Q4H PRN PRN Reason: Systolic >170 Last Admin: 09/03/17 00:24 Dose: 10 mg Sodium Chloride (Ns 0.9% 1000 Ml*) 1,000 mls @ 75 mls/hr IV PER RATE [facility] Last Admin: 09/02/17 19:38 Dose: 75 mls/hr Cefepime HCl (Maxipime 1 Gm In Dextrose Duplex (*)) 1 gm in 50 mls @ 100 mls/ hr IV Q12H [facility] Last Admin: 09/03/17 02:21 Dose: 100 mls/hr Melatonin (Melatonin (Nf)) 3 mg PO BEDTIME PRN; Protocol PRN Reason: Sleep Omeprazole (Prilosec Cap*) 20 mg PO BID [facility] Ondansetron HCl (Zofran Inj*) 4 mg IV Q6H PRN PRN Reason: NAUSEA Oxycodone HCl (Roxycodone Tab*) 5 mg PO Q4H PRN PRN Reason: PAIN Sodium Chloride (Sodium Chloride Tab*) 1 gm PO BID [facility] Assessment: 61 yo F w 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 Clinically she is improving. I suspect the source is her urine given pyuria, but am awaiting urine culture results. I will also get surveillance cultures given her port. there is no abdominal pain on exam to suggest abscess but if urine culture negative will get CT of abdomen and pelvis. Plan: Gram negative bacteremia: defervesced on cefepime, awaiting cx results -surveillance cultures -fu urine culture, if not similar will need CT C/A/P to rule out abscess and evaluate pleural effusion further hyponatremia: likely SIADH from cancer PLUS poor PO intake (given prealbumin of 8) -start salt tabs -cont NS hydration anemia: likely chemotherapy related, but agree with stool guaiac. -check iron panel severe protein calorie malnutrition: decreased PO intake, decreased prealbumin -nutrition consult DVT prophylaxis: if stool guaiac negative start heparin on SCDs now
[2017-09-03] MEDS: Docusate CAP* 100 MG PO SCH ×2 (09:06→22:07)
[2017-09-03] MEDS: Sodium Chloride TAB* 1 GM PO SCH ×2 (09:07→22:07)
[2017-09-03] MEDS: NS 0.9% 1000 ML* 1,000 ML IV SCH ×2 (09:10→17:35)
[2017-09-03] MEDS: risperiDONE TAB* 1 MG PO SCH (10:09)
[2017-09-03] MEDS: Metoprolol Succinate XL TAB* 50 MG PO SCH (10:09)
[2017-09-03] MEDS: FLUoxetine CAP* 10 MG PO SCH (10:09)
[2017-09-03] MEDS: Liothyronine TAB* 5 MCG PO SCH ×2 (10:09→22:07)
[2017-09-03] MEDS: Levothyroxine TAB* 150 MCG TAB PO SCH (10:09)
[2017-09-03] MEDS: oxyCODONE TAB* 5 MG TAB PO PRN (18:47)
[2017-09-04] MEDS: Cefepime 1 GM in Dextrose(*) 1 GM/50 ML BAG IV SCH (02:10)
[2017-09-04] MEDS: hydrALAZINE IV* 20 MG/ML VIAL IV PRN ×2 (04:16→13:23)
[2017-09-04] MEDS: Levothyroxine TAB* 150 MCG TAB PO SCH (05:24)
[2017-09-04 05:56] LABS: ABS Basophils 0 10^3/ul (0-0.2); ABS Eosinophils 0 10^3/ul (0-0.6); ABS Lymphocytes 0.6 10^3/ul (1.0-4.8); ABS Monocytes 0.3 10^3/ul (0-0.8); ABS Neutrophils 2.7 10^3/ul (1.5-7.7); ABS Nucleated RBC 0 10^3/ul; Eosinophil % 0.3 % (0-6); Hematocrit 35 % (35-47); Hemoglobin 12.3 g/dl (12.0-16.0); Mean Corpuscular HGB Conc 35 g/dl (31-36); Mean Corpuscular Hemoglobin 30 pg (27-31); Mean Corpuscular Volume 87 fL (80-97); Mean Platelet Volume 9 um3 (7.4-10.4); Nucleated Red Blood Cells % 0; Platelet Count 48 10^3/ul (150-450); Red Blood Count 4.06 10^6/ul (4.0-5.4); Red Cell Distribution Width 16 % (10.5-15); White Blood Count 3.6 10^3/ul (3.5-10.8)
[2017-09-04 06:06] LABS: EGFR Non-African American 44.4 (>60)
[2017-09-04] MEDS: NS 0.9% 1000 ML* 1,000 ML IV SCH (07:54)
[2017-09-04] MEDS: Docusate CAP* 100 MG PO SCH ×2 (08:50→20:52)
[2017-09-04] MEDS: risperiDONE TAB* 1 MG PO SCH (08:55)
[2017-09-04] MEDS: Omeprazole CAP* 20 MG PO SCH ×2 (08:55→20:52)
[2017-09-04] MEDS: FLUoxetine CAP* 10 MG PO SCH (08:55)
[2017-09-04] MEDS: Sodium Chloride TAB* 1 GM PO SCH ×2 (08:55→20:51)
[2017-09-04] MEDS: Liothyronine TAB* 5 MCG PO SCH ×2 (08:55→20:51)
[2017-09-04] MEDS: Metoprolol Succinate XL TAB* 50 MG PO SCH (08:55)
--- NOTE | 2017-09-04 09:56 | PN ---
Progress Note - Progress Note Date of Service: 09/04/17 SOAP: Subjective: [] Feeling better. Eating breakfast. In good spirits. No pain. No fevers. having bowl movements. Acetaminophen (Tylenol Tab*) 650 mg PO Q6H PRN PRN Reason: FEVER/PAIN Docusate Sodium (Colace Cap*) 200 mg PO BID [facility] Last Admin: 09/04/17 08:50 Dose: Not Given Fluoxetine HCl (Prozac Cap*) 30 mg PO DAILY [facility] Last Admin: 09/04/17 08:55 Dose: 30 mg Hydralazine HCl (Apresoline Iv*) 10 mg IV Q4H PRN PRN Reason: Systolic >170 Last Admin: 09/04/17 04:16 Dose: 10 mg Sodium Chloride (Ns 0.9% 1000 Ml*) 1,000 mls @ 75 mls/hr IV PER RATE [facility] Last Admin: 09/04/17 07:54 Dose: 75 mls/hr Cefepime HCl (Maxipime 1 Gm In Dextrose Duplex (*)) 1 gm in 50 mls @ 100 mls/ hr IV Q12H [facility] Last Admin: 09/04/17 02:10 Dose: 100 mls/hr Levothyroxine Sodium (Synthroid Tab*) 150 mcg PO DAILY@0600 [facility] Last Admin: 09/04/17 05:24 Dose: 150 mcg Liothyronine Sodium (Cytomel Tab*) 5 mcg PO BID [facility] Last Admin: 09/04/17 08:55 Dose: 5 mcg Melatonin (Melatonin (Nf)) 3 mg PO BEDTIME PRN; Protocol PRN Reason: Sleep Metoprolol Succinate (Toprol Xl Tab*) 50 mg PO DAILY [facility] Last Admin: 09/04/17 08:55 Dose: 50 mg Omeprazole (Prilosec Cap*) 20 mg PO BID [facility] Last Admin: 09/04/17 08:55 Dose: 20 mg Ondansetron HCl (Zofran Inj*) 4 mg IV Q6H PRN PRN Reason: NAUSEA Oxycodone HCl (Roxycodone Tab*) 5 mg PO Q4H PRN PRN Reason: PAIN Last Admin: 09/03/17 18:47 Dose: 5 mg Risperidone (Risperdal*) 1 mg PO DAILY [facility] Last Admin: 09/04/17 08:55 Dose: 1 mg Sodium Chloride (Sodium Chloride Tab*) 1 gm PO BID [facility] Last Admin: 09/04/17 08:55 Dose: 1 gm Objective: [] Vital Signs Temp Pulse Resp BP Pulse Ox 98.2 F 88 18 156/75 97 09/04/17 07:33 09/04/17 07:33 09/04/17 07:33 09/04/17 07:33 09/04/17 07:33 eyes crusted with whitish exudate, No throush, some irritation around lips. CTA s1 s2 nl soft nt +Bs, no clear hepatomegaly no le edema A+O x 3, slightly delayed grossly nonfocal small left supraclavicular LN Skin - marked improvement in hygiene Laboratory Results - last 24 hr 09/01/17 09/03/17 09/04/17 22:17 17:50 05:12 WBC 3.6 RBC 4.06 Hgb 12.3 Hct 35 MCV 87 MCH 30 MCHC 35 RDW 16 H Plt Count 48 L MPV 9 Neut % (Auto) 75.3 Lymph % (Auto) 17.0 L [place] % (Auto) 7.0 Eos % (Auto) 0.3 Baso % (Auto) 0.4 Absolute Neuts (auto) 2.7 Absolute Lymphs (auto) 0.6 L Absolute Monos (auto) 0.3 Absolute Eos (auto) 0 Absolute Basos (auto) 0 Absolute Nucleated RBC 0 Nucleated RBC % 0 Sodium Potassium Chloride Carbon Dioxide Anion Gap BUN Creatinine Est GFR ( Amer) Est GFR (Non-Af Amer) BUN/Creatinine Ratio Glucose Calcium Magnesium Total Bilirubin AST ALT Alkaline Phosphatase Total Protein Albumin Globulin Albumin/Globulin Ratio Blood Type A Positive Antibody Screen Negative Crossmatch See Detail Transfusion React Rpt Donor Unit # [id number] Post-Trans Blood Type A Positive Post-Trans [place] Negative 09/04/17 05:12 WBC RBC Hgb Hct MCV MCH MCHC RDW Plt Count MPV Neut % (Auto) Lymph % (Auto) [place] % (Auto) Eos % (Auto) Baso % (Auto) Absolute Neuts (auto) Absolute Lymphs (auto) Absolute Monos (auto) Absolute Eos (auto) Absolute Basos (auto) Absolute Nucleated RBC Nucleated RBC % Sodium 128 L Potassium 4.0 Chloride 104 Carbon Dioxide 19 L Anion Gap 5 BUN 16 Creatinine 1.23 H Est GFR ( Amer) 57.1 Est GFR (Non-Af Amer) 44.4 BUN/Creatinine Ratio 13.0 Glucose 112 H Calcium 7.2 L Magnesium 1.8 L Total Bilirubin 1.10 H AST 21 ALT 13 Alkaline Phosphatase 154 H Total Protein 5.0 L Albumin 2.1 L Globulin 2.9 Albumin/Globulin Ratio 0.7 L Blood Type Antibody Screen Crossmatch Transfusion React Rpt Donor Unit # Post-Trans Blood Type Post-Trans [place] Assessment: 61 yo F w 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 Polymycrobial with resistant E. Coli. Clinically she is significantly improved. DDx for infection is urine, bowl lesion, port less likely. Plan: 1. Gram negative bacteremia. Defervesced on cefepime, given resistant E. Coli consultation to ID today. Check CT for abdominal source. 2. Hyponatremia. Chronic, SIADH -start salt tabs -cont NS hydration 3. Anemia. Has been iron deficient. Responded to PRBC. Give IV Iron while in patient. 4. severe protein calorie malnutrition. Eating better, nutrition consult 5. Disposition. Had poor social support prior to admission, very poor hygiene. - PT consultation - Social work to improve home support. 6. Cancer. Clinical response to chemotherapy, check CA 19-[address] scan
[2017-09-04] MEDS ORDERED: Iodixanol* (CONTRAST) 320 MG/ML 100 ML SDV IV ONE (11:57)
--- NOTE | 2017-09-04 13:11 | RAD ---
INDICATION: E coli sepsis. Cancer. Pertinent past medical history of colectomy with ileal pouch. Whipple procedure. Thyroidectomy. History of thyroid and colon carcinoma. COMPARISON: CT chest June 22, 2017; CT abdomen pelvis June 21, 2017 TECHNIQUE: Axial source images were obtained from the thoracic inlet to the symphysis pubis following administration of oral and intravenous contrast. 75 mL Visipaque 320 was utilized. Coronal and sagittal reconstructed images were acquired. CHEST FINDINGS: Neck/thyroid: There is thyroidectomy. Chest wall: There are no acute abnormalities of the bony thorax or chest wall. There is left supraclavicular lymphadenopathy. This is identified on the cephalad most image and is not completely characterized. There is also left axillary lymphadenopathy. The lymph nodes measure up to 1.6 cm in short axis at both locations. The appearance unchanged Lungs : There are again multiple subcentimeter peripheral nodules which appear essentially unchanged. There are bibasilar consolidative changes left greater than right which represents a new finding. The pulmonary interstitium appears normal. There are no endobronchial lesions. Cardiomediastinal structures: The heart is normal in size. There is no pericardial effusion. There is no evidence of aortic aneurysm or dissection. The pulmonary vessels appear normal. There is no mediastinal or hilar adenopathy. The esophagus appears normal. Pleura : There are moderate-sized bilateral pleural effusions. This represents a new finding ABDOMINAL/PELVIC FINDINGS: Liver: The liver is normal in size. There are multiple hepatic metastasis. The dominant lesion is in the inferior right hepatic lobe and measures 2.5 cm and is probably not changed. Additional small right hepatic and left hepatic lobe lesions are seen. These lesions were not evident on the most recent CAT scan but this was a noncontrast study. There are postsurgical changes in the medial segment of the left hepatic lobe. There is pneumobilia. Gallbladder: Cholecystectomy. Spleen: There is a new splenic lesion which is somewhat linear with an appearance representing a cleft within the spleen. This is new, however. This lesion measures 2.6 x 1.4 x 2.5 cm. Pancreas: Postoperative changes compatible with Whipple procedure.. Dilatation distal pancreatic duct. Adrenal glands: There is no evidence of adrenal mass. Kidneys: The kidneys are normal in size and position. There are prompt nephrograms and there is prompt excretion bilaterally. There are no renal parenchymal masses. There is no evidence of nephrolithiasis. Adenopathy: Extensive adenopathy. In the region of the pancreatic head resection is a 4.5 x 4.0 cm mass. There are multiple enlarged retroperitoneal lymph nodes some of which are confluent and measure in the 1.5 cm range. Additional gastrohepatic lymphadenopathy is present. Fluid collections: There is ascites. There is mesenteric edema with mild nodularity suggestive of peritoneal carcinomatosis. Vessels:The aorta and IVC appear normal GI tract: GI tract is grossly normal. There is partial colectomy with ileal pouch. Pelvic organs: The uterus and adnexa appear normal Bladder: There are no bladder masses. Abdominal and pelvic soft tissues: Mild diffuse subcutaneous edema. Osseous structures: There are no acute osseous findings. Stable irregularities inferior endplate of T12. IMPRESSION: 1. Thyroidectomy. 2. Persistent left supraclavicular and left axillary lymphadenopathy. 3. Multiple subcentimeter pulmonary parenchymal metastasis without significant change. 4. New basilar consolidative changes and moderate-sized bilateral pleural effusions. 5. Multiple hepatic metastasis. There are several lesions not documented previously consistent with progression. 6. New ascites. Suspected peritoneal carcinomatosis. 7. Postoperative changes to include colectomy with ileal pouch. Whipple procedure.
--- NOTE | 2017-09-04 13:35 | CONS ---
CONSULTATION REPORT: DATE OF CONSULT: 09/04/17 REQUESTING PHYSICIAN: Dr. Nolan. CONSULTING SERVICE: Infectious Disease. REASON FOR CONSULT: Gram-negative bacteremia. IMPRESSION: 1. Severe malaise. She had a blood culture taken on the , two bottles growing extended-spectrum beta-lactamase Escherichia coli and Klebsiella pneumoniae. She had no focal signs or symptoms. She does have a right chest port. She was started on cefepime to which the Escherichia coli is resistant. Followup blood cultures after cefepime on the had no growth. She is improved and feeling better. The Klebsiella and then the Escherichia coli that grew in her urine are both sensitive to cefepime. I think a port infection is less likely, particularly because the cultures have cleared without antibiotics that are active against the main organism which was present which could have been transient bacteremia due to an intraabdominal source or related to her underlying malignancy involving the bowel. 2. 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 3. Schizophrenia. 4. Chronic kidney disease. RECOMMENDATIONS: Change cefepime to Augmentin 500 mg by mouth twice daily for 7 more days as long as she is continuing to improve. If there is any worsening of symptoms, the alternate would be Zosyn which is active against the E. coli as well. HISTORY OF PRESENT ILLNESS: This is a 61-year-old woman with ampullary cancer, with liver metastasis, undergoing chemotherapy by a right chest port admitted with severe malaise on the . She was seen by Dr. Nolan. As soon as she called complaining of severe weakness and malaise and then a fever of 101, and she was seen there. Blood cultures were taken. She eventually got to the emergency room and was started on cefepime. White count was 12,000. It is down to 7,000. She has had no fevers, chills, or sweats here. Her energy and appetite are improving. She is having cefepime through the port. No fever after infusion and had not noticed fever after infusion recently either. She is going to have a CT of her abdomen and pelvis today to look for any intraabdominal source of infection. She has had no urinary frequency or dysuria. Her urinalysis showed protein, leukocyte esterase. No blood or nitrites. The urine culture grew normal hubert and greater than 100,000 colonies of E. coli which is pansensitive. PAST MEDICAL HISTORY: 1. Thyroid cancer status post thyroidectomy. 2. Postoperative hypothyroidism. 3. 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 4. Ampullary adenocarcinoma status post Whipple's procedure, on chemotherapy. 5. Gastric polyp. 6. Hypertension. 7. Chronic kidney disease. 8. Anemia. 9. Schizophrenia. 10. Depression. MEDICATIONS: 1. Tylenol. 2. Docusate. 3. Fluoxetine. 4. Hydralazine. 5. Levothyroxine. 6. Liothyronine. 7. Cefepime 1 g every 12 hours with the IV. 8. Melatonin. 9. Metoprolol. 10. Omeprazole. 11. Risperidone. 12. Sodium chloride tablets. ALLERGIES: No known drug allergies. FAMILY HISTORY: No recurrent infections. SOCIAL HISTORY: She lives in a care home in [place] associated with her anabaptism. REVIEW OF SYSTEMS: A 14-point review of systems was negative except as noted above. PHYSICAL EXAM: Vital Signs: Temperature 36.8, heart rate 88, respiratory rate 18, blood pressure 156/75, O2 sat 97% on room air. General: She is awake, not in distress. Neurological: She is oriented x3. Follows all commands. HEENT: There is no conjunctival hemorrhage. Oropharynx: No lesions. Neck is supple. Lymph Nodes: There is no inguinal, axillary, or epitrochlear lymphadenopathy. Heart: Regular rate and rhythm without murmurs, rubs or gallops. Lungs: Clear to auscultation bilaterally. Chest: There is a right chest port erythema, it is accessed. Abdomen: Soft, nontender, nondistended. There are bowel sounds present. Skin: There is no rash or splint hemorrhages. Musculoskeletal: There is no spine tenderness to palpation or joint synovitis. DIAGNOSTIC STUDIES/LAB DATA: White blood cell count 36, hemoglobin 12, and platelets of 48,000. Creatinine 1.2. Lactic acid, 09/02/17 was 0.8, 3.3 on admission on the . Influenza PCR was negative. Please see impressions and recommendations outlined above, which I have discussed with Dr. Nolan. Thank you for asking me to see Ms. Yung in consultation. [id number]/[facility] #: [id number] [facility]
[2017-09-04] MEDS: oxyCODONE TAB* 5 MG TAB PO PRN (17:50)
[2017-09-04] MEDS: Amoxicillin/Clavulanate TAB* 500 MG PO SCH (20:51)
[2017-09-05 05:04] LABS: Hematocrit 33 % (35-47); Mean Corpuscular HGB Conc 33 g/dl (31-36); Mean Corpuscular Hemoglobin 29 pg (27-31); Mean Corpuscular Volume 87 fL (80-97); Mean Platelet Volume 9 um3 (7.4-10.4); Platelet Count 47 10^3/ul (150-450); Red Blood Count 3.79 10^6/ul (4.0-5.4); Red Cell Distribution Width 17 % (10.5-15); White Blood Count 1.8 10^3/ul (3.5-10.8)
[2017-09-05 05:19] LABS: EGFR Non-African American 39.9 (>60)
[2017-09-05] MEDS: Levothyroxine TAB* 150 MCG TAB PO SCH (06:15)
[2017-09-05] MEDS: risperiDONE TAB* 1 MG PO SCH (09:20)
[2017-09-05] MEDS: FLUoxetine CAP* 10 MG PO SCH (09:20)
[2017-09-05] MEDS: Omeprazole CAP* 20 MG PO SCH (09:20)
[2017-09-05] MEDS: Amoxicillin/Clavulanate TAB* 500 MG PO SCH (09:20)
[2017-09-05] MEDS: Liothyronine TAB* 5 MCG PO SCH (09:20)
[2017-09-05] MEDS: Sodium Chloride TAB* 1 GM PO SCH (09:21)
[2017-09-05] MEDS: Metoprolol Succinate XL TAB* 50 MG PO SCH (09:21)
[2017-09-05] MEDS: Docusate CAP* 100 MG PO SCH (09:21)
[2017-09-05 12:22] VITALS: BP 145/85
== END 2017-09-05 14:25 | disposition home or self-care (01) | DRG 720 ==
LOC: ED 21:01 → SSU 09-02 01:11
PROVIDERS: ADMIT Hospitalist; ATTEND Internal Medicine Hematology & Oncology
PROC: 30233N1 Transfusion of Nonautologous Red Blood Cells into Peripheral Vein, Percutaneous Approach (ICD-10-PCS; principal; 2017-09-02)
DX: A41.51 Sepsis due to Escherichia coli [E. coli] (principal); E43 Unspecified severe protein-calorie malnutrition; J90 Pleural effusion, not elsewhere classified; C78.7 Secondary malignant neoplasm of liver and intrahepatic bile duct; E22.2 Syndrome of inappropriate secretion of antidiuretic hormone; C24.1 Malignant neoplasm of ampulla of Vater; F25.9 Schizoaffective disorder, unspecified; E83.42 Hypomagnesemia; N39.0 Urinary tract infection, site not specified; E89.0 Postprocedural hypothyroidism; I12.9 Hypertensive chronic kidney disease with stage 1 through stage 4 chronic kidney disease, or unspecified chronic kidney disease; D50.9 Iron deficiency anemia, unspecified; F41.9 Anxiety disorder, unspecified; R40.2412 Glasgow coma scale score 13-15, at arrival to emergency department; F32.9 Major depressive disorder, single episode, unspecified; K21.9 Gastro-esophageal reflux disease without esophagitis; Z16.19 Resistance to other specified beta lactam antibiotics; H01.009 Unspecified blepharitis unspecified eye, unspecified eyelid; Z86.73 Personal history of transient ischemic attack (TIA), and cerebral infarction without residual deficits; Z85.850 Personal history of malignant neoplasm of thyroid; Z86.010 Personal history of colon polyps; Z82.49 Family history of ischemic heart disease and other diseases of the circulatory system; Z68.25 Body mass index [BMI] 25.0-25.9, adult; Z90.49 Acquired absence of other specified parts of digestive tract
CPT/HCPCS: 36415; 71010; 71260; 74177; 80048; 80053; 80076; 81003; 81015; 83605; 83735; 84134; 85025; 85027; 86078; 86301; 86850; 86900; 86901; 86922; 87040; 87077; 87086; 87186; 87205; 87502; 99233; 99238; A9270-GY; J0360; J0692; J1642; J3475; P9040; Q9967

== ENCOUNTER 2017-09-08 12:18 | Inpatient (IN) | payer BC ==
[2017-09-08 13:35] LABS: ABS Basophils 0 10^3/ul (0-0.2); ABS Eosinophils 0.1 10^3/ul (0-0.6); Eosinophil % 3.4 % (0-6)
[2017-09-08 13:38] LABS: ABS Monocytes 0.6 10^3/ul (0-0.8); ABS Nucleated RBC 0 10^3/ul; Hematocrit 35 % (35-47); Hemoglobin 11.9 g/dl (12.0-16.0); Lymphocyte % 33.2 % (25-47); Mean Corpuscular HGB Conc 34 g/dl (31-36); Mean Corpuscular Hemoglobin 30 pg (27-31); Mean Corpuscular Volume 89 fL (80-97); Mean Platelet Volume 8 um3 (7.4-10.4); Nucleated Red Blood Cells % 0.2; Red Cell Distribution Width 17 % (10.5-15)
[2017-09-08 13:39] LABS: ABS Lymphocytes 0.6 10^3/ul (1.0-4.8); White Blood Count 1.7 10^3/ul (3.5-10.8)
[2017-09-08 13:40] LABS: Platelet Count 95 10^3/ul (150-450)
[2017-09-08 13:42] LABS: ABS Neutrophils 0.5 10^3/ul (1.5-7.7)
[2017-09-08 13:48] LABS: EGFR Non-African American 45.2 (>60)
[2017-09-08] MEDS ORDERED: LORazepam TAB(*) 0.5 MG PO PRN (15:51)
[2017-09-08] MEDS ORDERED: Ondansetron ODT TAB* 4 MG PO PRN (15:51)
[2017-09-08] MEDS ORDERED: Gadoteridol* (CONTRAST) 279.3 MG/ML 10 ML IV ONE (16:55)
[2017-09-08] MEDS: Cefepime 1 GM in Dextrose(*) 1 GM/50 ML BAG IV SCH (17:47)
[2017-09-08] MEDS: NS 0.9% 1000 ML* 1,000 ML IV SCH (17:48)
[2017-09-08] MEDS ORDERED: Aspirin EC Low Dose* 81 MG TAB.EC PO SCH (18:00)
--- NOTE | 2017-09-08 18:25 | RAD ---
INDICATION: Weakness in legs confusion facial droop. COMPARISON: Comparison is made with a prior MRI of the brain from June 22, 2017. TECHNIQUE: Sagittal T1, axial T1, T2, susceptibility, FLAIR and diffusion-weighted images were obtained. FINDINGS: There is increased signal intensity and T2-weighted images present in the posterior right temporal lobe and a larger area of restricted diffusion involving this area and extending into the adjacent posterior parietal lobe most consistent with a subacute infarct. There is localized mass effect with compression of adjacent sulci. No midline shift is present. There is no evidence for hemorrhage. The ventricles and cisterns appear within normal limits. There are small areas of increased signal intensity in T2-weighted images present with subcortical and periventricular white matter most consistent with mild chronic small vessel ischemic changes similar to the prior study There is mild mucosal thickening within the left maxillary sinus. The visualized portion of the paranasal sinuses otherwise appear clear. There are also small effusions within the mastoid air cells. The results of this exam were discussed with the referring clinician. 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
--- NOTE | 2017-09-08 18:46 | ED ---
Lillian Canas Gabriel, scribed for Geovanny Man MD on 09/08/17 at 1240 . Complex/Multi-Sys Presentation - HPI Summary HPI Summary: This patient is a 61 year old F BIBA to [facility] accompanied by family with a chief complaint of weakness since 0800 this morning. Patient was being trying to stand with assistance early this morning and was unable to stand by herself. Along with the weakness her family member states her speech was altered but this has resolved. Patient reports her right eye weeping and crusty. Patient denies fever. Patient was recently hospitalized. - History Of Current Complaint Chief Complaint: EDNeurologicalDeficit Time Seen by Provider: 09/08/17 12:21 Hx Obtained From: Patient, Family/Rivet Tester Onset/Duration: Lasting Hours - since 0800, Still Present, Resolved - slightly Timing: Constant Severity Currently: Mild Severity Initially: Moderate Associated Signs And Symptoms: Positive: Weakness, Other - poor speech, eye weeping - Allergies/Home Medications Allergies/Adverse Reactions: Allergies Allergy/AdvReac Type Severity Reaction Status Date / Time No Known Allergies Allergy Verified 09/01/17 21:10 PMH/Surg Hx/FS Hx/Imm Hx Previously Healthy: No Endocrine/Hematology History: Reports: Hx Thyroid Disease - removed, thyroid CA hx, Hx Anemia Denies: Hx Diabetes Cardiovascular History: Reports: Hx Hypertension Denies: Hx Pacemaker/ICD GI History: Reports: Other GI Disorders - Familial polyposis, colectomy with ileal pouch, ampullary cancer, colon ca. Sensory History: Reports: Hx Contacts or Glasses Denies: Hx Hearing Aid Opthamlomology History: Reports: Hx Contacts or Glasses Neurological History: Reports: Hx Transient Ischemic Attacks (TIA), Other Neuro Impairments/Disorders - MENTAL HEALTH ISSUES? Psychiatric History: Reports: Hx Anxiety, Hx Depression, Hx Schizophrenia - Schizoaffective type, Other Psychiatric Issues/Disorders - increase in confusion /pt cognition at baseline unclear at present time Denies: Hx Panic Disorder - Cancer History Cancer Type, Location and Year: thyroid cancer,colon cancer Hx Chemotherapy: Yes - Surgical History Surgery Procedure, Year, and Place: Colectomy with ileal pouch; Whipple; thyroidectomy; left humerus ORIF Hx Anesthesia Reactions: No - Immunization History Immunizations Up to Date: Yes Infectious Disease History: Yes Infectious Disease History: Denies: Traveled Outside the [place] in Last 30 Days - Family History Known Family History: Positive: Other - Familial adenomatous polyposis - Social History Alcohol Use: None Alcohol Amount: 1 drink/year Substance Use Type: Reports: None Smoking Status (MU): Never Smoked Tobacco Review of Systems Negative: Fever Positive: Other - right eye is weeping and crusty Positive: Weakness, Slurred Speech All Other Systems Reviewed And Are Negative: Yes Physical Exam - Summary Physical Exam Summary: Appearance: The patient is well-nourished in no acute distress and in no acute pain. Skin: The skin is warm and dry and skin color reflects adequate perfusion. HEENT: The head is normocephalic and atraumatic. The pupils are equal and reactive. The conjunctivae are clear. Nares are patent. Mouth reveals moist mucous membranes and the throat is without erythema and exudate. The external ears are intact. The ear canals are patent and without drainage. The tympanic membranes are intact. Her face is swollen and her right eye doesnt open as widely as the left. She has full motor control of her face Neck: the neck is supple with full range of motion and non-tender. There are no carotid bruits. There is no neck vein distension. Respiratory: Chest is non-tender. Lungs are clear to auscultation and breath sounds are symmetrical and equal. Cardiovascular: Heart is regular rate and rhythm. There is no murmur or rub auscultated. There is no peripheral edema and pulses are symmetrical and equal. Abdomen: The abdomen is soft and non-tender. There are normal bowel sounds heard in all four quadrants and there is no organomegaly palpated. Musculoskeletal: There is no back tenderness noted. Extremities are non-tender with full range of motion. There is good capillary refill. There is no peripheral edema or calf tenderness elicited. Neurological: Patient is alert and oriented to person, place and time. The patient has symmetrical motor strength in all four extremities. Cranial nerves are grossly intact. Deep tendon reflexes are symmetrical and equal in all four extremities. Psychiatric: The patient has an appropriate affect and does not exhibit any anxiety or depression. Triage Information Reviewed: Yes Vital Signs On Initial Exam: Initial Vitals Temp Pulse Resp BP Pulse Ox 98 F 74 17 170/95 99 09/08/17 12:20 09/08/17 12:20 09/08/17 12:20 09/08/17 12:20 09/08/17 12:20 Vital Signs Reviewed: Yes - Fisher Coma Scale Coma Scale Total: 15 Diagnostics - Vital Signs Vital Signs Temp Pulse Resp BP Pulse Ox 09/08/17 12:20 98 F 74 17 170/95 99 - Laboratory Lab Results: Lab Results 09/08/17 09/08/17 09/08/17 Range/Units 13:20 13:20 13:20 WBC 1.7 L (3.5-10.8) 10^3/ul RBC 4.00 (4.0-5.4) 10^6/ul Hgb 11.9 L (12.0-16.0) g/dl Hct 35 (35-47) % MCV 89 (80-97) fL MCH 30 (27-31) pg MCHC 34 (31-36) g/dl RDW 17 H (10.5-15) % Plt Count 95 L D (150-450) 10^3/ul MPV 8 (7.4-10.4) um3 Neut % (Auto) 29.3 L (38-83) % Lymph % (Auto) 33.2 (25-47) % Coke % (Auto) 32.7 H (1-9) % Eos % (Auto) 3.4 (0-6) % Baso % (Auto) 1.4 (0-2) % Absolute Neuts (auto) 0.5 L* (1.5-7.7) 10^3/ul Absolute Lymphs (auto) 0.6 L (1.0-4.8) 10^3/ul Absolute Monos (auto) 0.6 (0-0.8) 10^3/ul Absolute Eos (auto) 0.1 (0-0.6) 10^3/ul Absolute Basos (auto) 0 (0-0.2) 10^3/ul Absolute Nucleated RBC 0 10^3/ul Nucleated RBC % 0.2 Sodium 133 (133-145) mmol/L Potassium 3.9 (3.5-5.0) mmol/L Chloride 107 (101-111) mmol/L Carbon Dioxide 21 L (22-32) mmol/L Anion Gap 5 (2-11) mmol/L BUN 11 (6-24) mg/dL Creatinine 1.21 H (0.51-0.95) mg/dL Est GFR ( Amer) 58.2 (>60) Est GFR (Non-Af Amer) 45.2 (>60) BUN/Creatinine Ratio 9.1 (8-20) Glucose 107 H (70-100) mg/dL Lactic Acid 0.7 (0.5-2.0) mmol/L Calcium 7.8 L (8.6-10.3) mg/dL Magnesium 1.4 L (1.9-2.7) mg/dL Total Bilirubin 0.60 (0.2-1.0) mg/dL AST 16 (13-39) U/L ALT 10 (7-52) U/L Alkaline Phosphatase 173 H (34-104) U/L Troponin I 0.03 (<0.04) ng/mL C-Reactive Protein 82.18 H (< 5.00) mg/L Total Protein 5.2 L (6.4-8.9) g/dL Albumin 2.3 L (3.2-5.2) g/dL Globulin 2.9 (2-4) g/dL Albumin/Globulin Ratio 0.8 L (1-3) TSH 65.98 H (0.34-5.60) mcIU/mL Result Diagrams: 09/08/17 13:20 09/08/17 13:20 Lab Statement: Any lab studies that have been ordered have been reviewed, and results considered in the medical decision making process. - EKG 13:07 Cardiac Rate: NL EKG Rhythm: Sinus Rhythm - at 68 BPM EKG Interpretation: nonspecific lateral t wave flattening EKG Comparison: No Significant Change - in comparison with EKG from 06/23/17 Complex Multi-Symp Course/Dx Course Of Treatment: Ms. Yung was brought in for increased weakness. It was reported that she had a left facial droop earlier which is gone on arrival. She was found to be neutropenic and Dr. Stevens is admitting her. - Diagnoses Provider Diagnoses: Neutropenia - Physician Notifications Discussed Care Of Patient With: William Stevens Time Discussed With Above Provider: 14:22 Instructed by Provider To: Other - Discussed patient care with Dr. Stevens and he stated he will send someone to admit the patient. Discharge - Discharge Plan Condition: Stable Disposition: ADMITTED TO Health system documentation as recorded by the Lillian tripathi Gabriel accurately reflects the service I personally performed and the decisions made by me, Geovanny Man MD.
[2017-09-08] MEDS: Liothyronine TAB* 5 MCG PO SCH (20:19)
[2017-09-08] MEDS: risperiDONE TAB* 1 MG PO SCH (20:19)
[2017-09-09] MEDS ORDERED: Metoprolol Tartrate IV* 1 MG/ML 5 ML VIAL IV ONE ×2 (03:55→06:45)
[2017-09-09] MEDS: Levothyroxine TAB* 150 MCG TAB PO SCH (06:10)
[2017-09-09] MEDS: NS 0.9% 1000 ML* 1,000 ML IV SCH ×2 (06:11→22:55)
[2017-09-09 06:27] LABS: ABS Basophils 0 10^3/ul (0-0.2); ABS Eosinophils 0.1 10^3/ul (0-0.6); ABS Monocytes 0.6 10^3/ul (0-0.8); Hemoglobin 10.7 g/dl (12.0-16.0); Mean Corpuscular Hemoglobin 30 pg (27-31); Platelet Count 103 10^3/ul (150-450)
[2017-09-09 06:30] LABS: ABS Nucleated RBC 0.01 10^3/ul; Eosinophil % 4.5 % (0-6); Hematocrit 32 % (35-47); Lymphocyte % 29.3 % (25-47); Mean Corpuscular HGB Conc 34 g/dl (31-36); Mean Corpuscular Volume 89 fL (80-97); Mean Platelet Volume 8 um3 (7.4-10.4); Nucleated Red Blood Cells % 0.4; Red Blood Count 3.59 10^6/ul (4.0-5.4); Red Cell Distribution Width 17 % (10.5-15)
[2017-09-09 06:33] LABS: ABS Neutrophils 0.7 10^3/ul (1.5-7.7)
[2017-09-09 06:34] LABS: ABS Lymphocytes 0.6 10^3/ul (1.0-4.8)
[2017-09-09] MEDS: amLODIPine TAB* 5 MG PO SCH (08:25)
[2017-09-09] MEDS: Liothyronine TAB* 5 MCG PO SCH ×2 (08:25→21:29)
[2017-09-09] MEDS ORDERED: Omeprazole CAP* 20 MG PO SCH (09:00)
--- NOTE | 2017-09-09 09:40 | PN ---
Progress Note - Progress Note Date of Service: 09/09/17 SOAP: Subjective: feels "ok" this morning. frustrated that she is getting cold liquids when she should be on warmed liquids. feels globally weak but denies focal complaints Objective: Vital Signs Temp Pulse Resp BP Pulse Ox 99.7 F 60 24 190/90 98 09/09/17 07:38 09/09/17 07:38 09/09/17 07:38 09/09/17 06:37 09/09/17 07:38 lying flat in NAD right eye deviated slightly to right op moist CTA anteriorly s1 s2 nl soft nt +Bs anasarcic very slight right eye droop oriented to hospital, august, not year globally weak but nonfocal anasarcic Laboratory Results - last 24 hr 09/08/17 09/08/17 09/08/17 13:20 13:20 13:20 WBC 1.7 L RBC 4.00 Hgb 11.9 L Hct 35 MCV 89 MCH 30 MCHC 34 RDW 17 H Plt Count 95 L D MPV 8 Neut % (Auto) 29.3 L Lymph % (Auto) 33.2 Imperial % (Auto) 32.7 H Eos % (Auto) 3.4 Baso % (Auto) 1.4 Absolute Neuts (auto) 0.5 L* Absolute Lymphs (auto) 0.6 L Absolute Monos (auto) 0.6 Absolute Eos (auto) 0.1 Absolute Basos (auto) 0 Absolute Nucleated RBC 0 Nucleated RBC % 0.2 Sodium 133 Potassium 3.9 Chloride 107 Carbon Dioxide 21 L Anion Gap 5 BUN 11 Creatinine 1.21 H Est GFR ( Amer) 58.2 Est GFR (Non-Af Amer) 45.2 BUN/Creatinine Ratio 9.1 Glucose 107 H Lactic Acid 0.7 Calcium 7.8 L Magnesium 1.4 L Total Bilirubin 0.60 AST 16 ALT 10 Alkaline Phosphatase 173 H Troponin I 0.03 C-Reactive Protein 82.18 H Total Protein 5.2 L Albumin 2.3 L Globulin 2.9 Albumin/Globulin Ratio 0.8 L TSH 65.98 H 09/09/17 09/09/17 06:10 06:10 WBC 2.0 L RBC 3.59 L Hgb 10.7 L Hct 32 L MCV 89 MCH 30 MCHC 34 RDW 17 H Plt Count 103 L MPV 8 Neut % (Auto) 33.5 L Lymph % (Auto) 29.3 Imperial % (Auto) 31.4 H Eos % (Auto) 4.5 Baso % (Auto) 1.3 Absolute Neuts (auto) 0.7 L Absolute Lymphs (auto) 0.6 L Absolute Monos (auto) 0.6 Absolute Eos (auto) 0.1 Absolute Basos (auto) 0 Absolute Nucleated RBC 0.01 Nucleated RBC % 0.4 Sodium 130 L Potassium 3.9 Chloride 105 Carbon Dioxide 20 L Anion Gap 5 BUN 10 Creatinine 1.11 H Est GFR ( Amer) 64.3 Est GFR (Non-Af Amer) 50.0 BUN/Creatinine Ratio 9.0 Glucose 71 Lactic Acid Calcium 7.6 L Magnesium Total Bilirubin AST ALT Alkaline Phosphatase Troponin I C-Reactive Protein Total Protein Albumin Globulin Albumin/Globulin Ratio TSH Amlodipine Besylate (Norvasc Tab*) 10 mg PO QAM [facility] Last Admin: 09/09/17 08:25 Dose: 10 mg Clopidogrel Bisulfate (Plavix Tab*) 75 mg PO DAILY [facility] Fluoxetine HCl (Prozac Cap*) 30 mg PO QAM [facility] Sodium Chloride (Ns 0.9% 1000 Ml*) 1,000 mls @ 80 mls/hr IV PER RATE [facility] Last Admin: 09/09/17 06:11 Dose: 80 mls/hr Cefepime HCl (Maxipime 1 Gm In Dextrose Duplex (*)) 1 gm in 50 mls @ 100 mls/ hr IV Q24H [facility] Last Admin: 09/08/17 17:47 Dose: 100 mls/hr Levothyroxine Sodium (Synthroid Tab*) 150 mcg PO DAILY@0600 [facility] Last Admin: 09/09/17 06:10 Dose: 150 mcg Liothyronine Sodium (Cytomel Tab*) 5 mcg PO BID [facility] Last Admin: 09/09/17 08:25 Dose: 5 mcg Lorazepam (Ativan Tab(*)) 0.5 mg PO DAILY PRN PRN Reason: ANXIETY Metoprolol Succinate (Toprol Xl Tab*) 50 mg PO QAM [facility] Non-Formulary Medication (Iron Polysaccharide Complex-Vi [Iferex 150 Forte 150- 25-1 Mg-Mcg-Mg]) 1 cap PO QPM [facility] Ondansetron HCl (Zofran Odt Tab*) 4 mg PO Q6H PRN PRN Reason: NAUSEA/VOMITING Pantoprazole Sodium (Protonix Tab (Nf)) 40 mg PO 0900 [facility] Risperidone (Risperdal*) 1 mg PO BEDTIME [facility] Last Admin: 09/08/17 20:19 Dose: 1 mg Sodium Chloride (Sodium Chloride Tab*) 1 gm PO BID [facility] Assessment: 61 yo F w PMH of schizophrenia and metastatic adenoCA of the small bowel on palliative FOLFOX/Avastin, last given 08/26, admitted with slurred speech and facial droop and found to have a Right MCA stroke. Plan: Stroke: I have discussed with Dr. Nugent who will see her in consultation. Her overall prognosis is likely measured in months and so medical management of this CVA is most appropriate -carotid dopplers, ECHO w bubble, LE dopplers and tele -stop aspirin, start plavix -BP control (better after morning meds, now 168/78 -neurochecks q4 hours -lipid panel -PT, OT, speech consults Recent gram negative bacteremia: low grade temps, repeat cultures -cont cefepime as neutropenic hyponatremia: SIADH, resume Na tabs full code start sc heparin watch platelets
[2017-09-09 10:40] LABS: INR 0.96 (0.77-1.02)
[2017-09-09] MEDS: Sodium Chloride TAB* 1 GM PO SCH ×2 (10:56→21:29)
[2017-09-09] MEDS: FLUoxetine CAP* 10 MG PO SCH (10:56)
[2017-09-09] MEDS: Metoprolol Succinate XL TAB* 50 MG PO SCH (10:56)
[2017-09-09] MEDS: Clopidogrel TAB* 75 MG PO SCH (10:56)
[2017-09-09] MEDS ORDERED: Magnesium Sulf 4 GM/100 ML IV* 4,000 MG/100 ML BAG IVPB ONE (11:30)
[2017-09-09] MEDS: guaiFENesin LIQ* 100 MG/5 ML UDC PO PRN (13:53)
[2017-09-09] MEDS: Heparin VIAL(*) 5000 UNITS/ML VIAL (FIVE THOUSAND) SUBCUT SCH ×2 (13:53→21:29)
--- NOTE | 2017-09-09 14:49 | RAD ---
HISTORY: Left greater than right lower extremity swelling TECHNIQUE: Multiple transverse and longitudinal ultrasound images were obtained of the veins of the bilateral lower extremities using grayscale, color Doppler, and spectral Doppler imaging with and without compression and with augmentation. FINDINGS: VEINS: The common femoral vein, deep femoral vein, femoral vein and popliteal vein are compressible throughout their course, with normal flow on color Doppler imaging and normal response to augmentation on spectral Doppler imaging. SOFT TISSUES: Grossly normal. No large popliteal fossa cyst was identified. IMPRESSION: No sonographic evidence of deep vein thrombosis.
--- NOTE | 2017-09-09 15:06 | RAD ---
CPT II Codes: 6045F INDICATION: History of stroke COMPARISON: None TECHNIQUE: Multiple barnhart scale, color and doppler tracings of the common, internal and external carotid and vertebral arteries were obtained. Stenosis estimations reflect velocity criteria that have been correlated to angiographic stenosis calculations based on the distal internal carotid diameter. Right carotid: There is mild plaque within the right carotid bulb. The peak systolic velocity in the proximal right internal carotid artery is 63 cm/s and the maximum end-diastolic velocity is 18 cm/s. The peak systolic velocity in the distal common carotid artery is 71 cm/s and the maximum end-diastolic velocity is 11 cm/s. The internal to common carotid ratio is 0.9. This would be consistent with a less than 50% stenosis. Left carotid: There is mildly calcified plaque within the left carotid bulb. The peak systolic velocity in the proximal right internal carotid artery is 53 cm/s and the maximum end-diastolic velocity is 14 cm/s. The peak systolic velocity in the distal common carotid artery is 71 cm/s and the maximum end-diastolic velocity is 12 cm/s. The internal to common carotid ratio is 0.74. This would be consistent with a less than 50% stenosis. Vertebrals: There is antegrade flow in both vertebral arteries. At the left lower neck there are avascular and mostly anechoic structures most compatible with lymph nodes. The largest measures 1 x 1.9 cm. IMPRESSION: 1. There is no sonographic evidence of hemodynamically significant stenosis in the bilateral carotid arteries. 2. Lower cervical chain lymphadenopathy.
[2017-09-09] MEDS: Cefepime 1 GM in Dextrose(*) 1 GM/50 ML BAG IV SCH (16:49)
[2017-09-09] MEDS ORDERED: IRON POLYSACCHARIDE COMPLEX VI PO SCH (18:00)
--- NOTE | 2017-09-09 19:43 | CONS ---
CONSULTATION REPORT: DATE OF CONSULT: 09/09/17 PATIENT OF: Dr. Parisi. HISTORY OF PRESENT ILLNESS: This is a 61-year-old woman I am asked to evaluate for stroke and she presented yesterday with history of weakness since yesterday morning and some altered speech but this has been resolved. MRI scan showed stroke as described above. Of note, the patient had been seen by Dr. Stahl in July of 2016, at which time she had some right-sided numbness with clumsiness of her right hand as well as speech problems. Her MRI scan at that point showed tiny, acute left cerebellar infarct, one in the right periventricular area and an old right temporal lobe stroke. CTA showed no significant stenosis and there was concern about cardioembolic stroke. No anticoagulation was started at that point. PAST MEDICAL HISTORY: Of note, the patient has developmental disability and lives in a shelter but functions well in that setting. She has right exotropia and decreased vision in that right eye. She has a history of thyroid disease, status post thyroidectomy with thyroid cancer; has a history of anemia ; has hypertension; familial polyposis; history of schizophrenia, anxiety, and depression; has thyroid cancer and colon cancer and is status post colectomy with ileal pouch, Whipple procedure, thyroidectomy; left humerus ORIF. Of note, has metastatic adenocarcinoma of the small bowel, on palliative FOLFOX and Avastin, last given 08/26/17 and her overall prognosis per Dr. Parisi is most likely measured in months. She has had recent gram-negative bacteremia also. MEDICATIONS AT HOME: Included: 1. Prozac 30 mg q.a.m. 2. Aspirin 81 mg daily. 3. Augmentin 500 b.i.d. 4. Amlodipine 10 mg q.a.m. 5. Metoprolol 50 q.a.m. 6. Lorazepam 0.5 p.r.n. daily. 7. Cytomel 5 mcg b.i.d. 8. Synthroid 150 q.p.m. 9. Zofran 4 mg p.r.n. 10. Omeprazole 20 mg p.o. daily. She has been switched to Plavix from aspirin in the hospital. SOCIAL HISTORY: Does not drink, smoke, or use drugs. REVIEW OF SYSTEMS: Negative in all 14 spheres other than the HPI. PHYSICAL EXAM: Temperature 99, pulse 72, respiratory rate is 20, blood pressure is 172/80. She was alert and oriented. There is some slowness of speech some of which is apparently new, but she spoke in sentences. Cranial nerves II through XII were intact other than she had some right facial weakness and right ptosis. She also had a left visual field cut and some neglect on the left side. She had decreased sensation to light touch on the left more prominently with double simultaneous stimulation. When asked to move both hands , she would lift her right arm up and move it and would neglect to move the left side; however, she was able to lift her left hand up when specifically asked and touched it and she moved the left side with good strength at least 5-/ 5, but did not maintain a persistent effort. Reflexes were unequal with upgoing toe on the left, downgoing on the right. DIAGNOSTIC STUDIES/LAB DATA: MRI scan was reviewed and showed an acute/ subacute nonhemorrhagic infarct in the right cerebral artery distribution including her right parietal lobe. She had some appearance on FLAIR. Labs include white count of 2.0, hematocrit 32, platelet count of 103. INR 0.96 , PTT 26.9. CMP today: Her sodium is 130, creatinine 1.11 today, calcium 7.6, magnesium 1.3. C-reactive protein 82. Albumin 2.1. TSH 65.98. LDL is 100. IMPRESSION AND PLAN: I am concerned with La's past stroke that was multifocal and now with her new stroke that this could be cardioembolic given the different distributions of her stroke. Dr. Parisi has discussed with me her poor prognosis, so she would not be a candidate for things like endarterectomy but we are screening her carotids just to make sure that she does not have significant carotid stenosis on the right side as the explanation for her stroke. If she does not, the concern would be that this could be cardioembolic and she would not need anticoagulation now and she may not be a good candidate given her other comorbidities. If anticoagulation was an issue, we could conceivably do further monitoring to figure out whether she has atrial fibrillation or specific reason why she might have cardioembolic stroke. If her echo shows clots, then obviously we would discuss anticoagulation, but the pros and cons would have to be weighed in with her overall clinical status. For now, we are going to continue the aspirin. Her LDL is 100 and so she might benefit from being on statins; if she had further stroke, it may be somewhat neuroprotective. Thank you for sharing her case. [id number]/[facility] #: [id number] GAGE
[2017-09-09] MEDS: risperiDONE TAB* 1 MG PO SCH (21:29)
--- NOTE | 2017-09-10 02:29 | HP ---
ADMISSION HISTORY AND PHYSICAL: DATE OF ADMISSION: 09/08/17 REASON FOR ADMISSION: Left-sided and overall weakness, neutropenia. HISTORY OF PRESENT ILLNESS: La Yung is a 61-year-old female with multiple medical problems who was recently discharged from [facility] on 09/05/17. She was hospitalized from 09/02/17 to 09/05/17 after being found to have a weakness, which was generalized. She had a fever to 101 and notified our office. On admission, she was found to have a slightly elevated white count of 12,600, 96% neutrophils. Her cultures grew out both ESBL E. coli and also Klebsiella pneumoniae. Before the culture results were positive on the blood cultures, she had been treated with cefepime and it was found that the E. coli was resistant to this. She was seen in consultation by Dr. Hussein of Infectious Disease who felt that most likely the E. coli was not an active infection, and she was able to be sent home, and feeling fairly much improved on Augmentin alone. She did reasonably well at home for the first 2 days and then on the day of admission our office was notified that they were barely able to get her out of the bed and that she was extremely weak. She was however brought into our [facility] Office where she was seen by Andreia Kaminski NP who was extremely concerned by her weakness and concerned that there could be an acute neurologic event ongoing and sent her by ambulance to emergency room. She was seen there by the emergency room physician and I was notified to see her for admission. At that time, she was now approximately 2 weeks out from her most recent chemotherapy and neutrophil count was only 500. She was however afebrile. She seemed when I saw her much more weak and fatigue than her norm, especially having problems with not modestly with speech as well. PAST MEDICAL HISTORY: Recent adenocarcinoma of the small bowel. She has received recently chemotherapy with FOLFOX and Avastin. She has an ileostomy status. On a recent CT scan, there is likely progression in the liver. Past medical history is otherwise significant for familial polyposis syndrome, status post colectomy with ileal pouch in 1992, hyperplastic gastric polyps, small bowel adenoma in the past. History of thyroid cancer. 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 Hypertension, chronic renal insufficiency stage 3, schizophrenia, depression. MEDICATIONS: 1. Aspirin 81 mg daily. 2. Colace p.r.n. 3. Calcium p.r.n. 4. Fluoxetine 30 mg daily. 5. Imodium p.r.n. 6. Levothyroxine 150 mcg daily. 7. Liothyronine 5 mcg b.i.d. 8. Magnesium oxide 800 mg b.i.d. 9. MiraLAX p.r.n. 10. Omeprazole 20 mg daily. 11. Oxycodone 5 mg q.4 hours p.r.n. 12. Risperidone 1 mg daily. 13. Senna one tablet p.r.n. 14. Toprol-XL 50 mg long acting daily. 15. Zofran p.r.n. 16. Augmentin 875 mg b.i.d. FAMILY HISTORY: No clear family history of malignancy. SOCIAL HISTORY: No alcohol or tobacco. Lives in a senior care in [place]. Has a full code status. REVIEW OF SYSTEMS: Feeling much more weak and fatigued than her norm, especially difficult for her to bear any weight on her legs at this time. Her speech is slightly more viable than visual. A little bit of epistaxis today. No difficulty swallowing. She complains that her face is much more pudgy, and her eyes are more swollen, and her vision is abnormal. PHYSICAL EXAMINATION GENERAL: A 61-year-old female in no acute distress. VITAL SIGNS: Afebrile, blood pressure 170/95, pulse 73, O2 saturation 99% on room air. HEENT: Her face appears swollen, which is more so than before. Her eyes are disconjugate on extraocular motions. She is not able to fully open her right eye. There appears to be a slight left facial droop. No cervical, supraclavicular, or axillary adenopathy. LUNGS: Clear. HEART: Regular rate and rhythm without murmurs, rubs, or gallops. ABDOMEN: Soft, nontender without masses or organomegaly. EXTREMITIES: No clubbing, cyanosis, or edema. NEUROLOGIC EXAM: In addition to above, the patient has modest weakness throughout, more so on the left leg than anywhere else with a difficulty raising the left leg off the hospital bed. LABORATORY STUDIES: CBC: White count 1700, hematocrit 35, hemoglobin 11.9, platelet count 95,000 with a neutrophil count of 500. Chemistry Studies: Sodium 133, potassium 3.9, chloride 107, bicarb 21, BUN 11, creatinine 1.21, glucose 107. LFTs are unremarkable. Magnesium 1.4. C-reactive protein 82.1. TSH is 65. Recent CA19-9 antigen last admission was 673, which is similar to that of July and August. IMPRESSION: 1. A 61-year-old female with clear changes neurologically from her baseline when seen 3 days ago. Her symptoms started approximately 6 to 7 o'clock this morning, which is at least 8 hours before I saw her in the emergency room. Because of this, I do not think considering a code cavanaugh protocol would be appropriate. In addition, there are questions as to life expectancy and how extensive workup we should do. I was concerned that she could have either metastatic disease or stroke and asked for an MRI scan of the brain with and without contrast. 2. Metastatic small bowel cancer. The patient's chemotherapy is currently on hold and we may not hold at the present time due to most of her new medical problems. 3. Recent fever with positive blood cultures, on Augmentin at home but she has now become neutropenic 2 weeks out from most recent chemotherapy. Decision is to resume IV antibiotics from prior oral antibiotics at home. 4. Anemia is stable. 5. Hypomagnesemia. May need replacement. [id number]/[facility] #: [id number] [facility]
[2017-09-10] MEDS: Heparin VIAL(*) 5000 UNITS/ML VIAL (FIVE THOUSAND) SUBCUT SCH ×2 (05:41→16:17)
[2017-09-10] MEDS: Levothyroxine TAB* 150 MCG TAB PO SCH (05:41)
[2017-09-10 06:12] LABS: ABS Basophils 0 10^3/ul (0-0.2); ABS Eosinophils 0.1 10^3/ul (0-0.6); ABS Lymphocytes 0.8 10^3/ul (1.0-4.8); ABS Monocytes 0.7 10^3/ul (0-0.8); ABS Neutrophils 1.1 10^3/ul (1.5-7.7); ABS Nucleated RBC 0.02 10^3/ul; Hematocrit 32 % (35-47); Mean Corpuscular HGB Conc 34 g/dl (31-36); Mean Corpuscular Hemoglobin 30 pg (27-31); Mean Corpuscular Volume 88 fL (80-97); Mean Platelet Volume 8 um3 (7.4-10.4); Nucleated Red Blood Cells % 0.6; Platelet Count 128 10^3/ul (150-450); Red Blood Count 3.64 10^6/ul (4.0-5.4); Red Cell Distribution Width 18 % (10.5-15)
[2017-09-10 06:16] LABS: White Blood Count 2.7 10^3/ul (3.5-10.8)
[2017-09-10] MEDS: amLODIPine TAB* 5 MG PO SCH (07:53)
[2017-09-10] MEDS: Metoprolol Succinate XL TAB* 50 MG PO SCH (07:53)
[2017-09-10] MEDS: KCL premix 10MEQ/50 ML x 3 RUNS IV SCH ×6 (07:53→13:16)
[2017-09-10] MEDS: FLUoxetine CAP* 10 MG PO SCH (07:53)
[2017-09-10] MEDS: Sodium Chloride TAB* 1 GM PO SCH (07:54)
[2017-09-10] MEDS: Liothyronine TAB* 5 MCG PO SCH (07:54)
[2017-09-10] MEDS: Clopidogrel TAB* 75 MG PO SCH (07:54)
[2017-09-10] MEDS ORDERED: KCL 20 MEQ/100 ML IVPREMIX* 20 MEQ/100 ML BAG IV SCH (08:00)
--- NOTE | 2017-09-10 08:28 | DS ---
- Discharge Summary ADMIT DATE: 09/08/2017 DISCHARGE DATE: 09/10/2017 DISCHARGE DIAGNOSIS: 1. acute right MCA stroke 2. neutropenia, nonfebrile 3. metastatic small bowel carcinoma on chemotherapy 4. chemotherapy induced hypokalemia 5. Hypertension DISCHARGE FOLLOW UP: 1. Dr. Nolan [facility] office 09/15 at 11:20 am DISCHARGE MEDICATIONS: Home Medications Medication Instructions Recorded Confirmed Type FLUoxetine CAP* [Prozac CAP*] 30 mg PO QAM 10/04/12 09/09/17 History Liothyronine TAB* [Cytomel TAB*] 5 mcg PO BID 10/04/12 09/09/17 History risperiDONE TAB* [Risperdal*] 1 mg PO BEDTIME 10/04/12 09/09/17 History Levothyroxine TAB* [Synthroid 150 150 mcg PO QPM 07/23/16 09/09/17 History MCG TAB*] Amlodipine Besylate 10 mg PO QAM 02/20/17 09/09/17 History Ondansetron ODT TAB* [Zofran 4 MG 4 mg PO Q6H PRN #20 tab.odt 06/23/17 09/09/17 Rx Odt TAB*] Iron Polysaccharide Complex- 1 cap PO QPM 07/03/17 09/09/17 History [Iferex 150 Forte 150-25-1 mg-Mcg-mg] Metoprolol Succinate [Toprol Xl] 50 mg PO QAM 07/03/17 09/09/17 History D-Mannose 1 pow PO DAILY 07/22/17 09/09/17 History Lorazepam [Ativan 0.5 MG TAB] 0.5 mg PO DAILY PRN 07/22/17 09/09/17 History Omeprazole CAP* [Prilosec CAP* 20 20 mg PO DAILY 07/22/17 09/09/17 History MG] Sodium Chloride TAB* 1 gm PO BID #60 tab 09/05/17 09/09/17 Rx Atorvastatin* [Lipitor 40 MG*] 40 mg PO 1700 #30 tab 09/10/17 Rx Clopidogrel TAB* [Plavix TAB*] 75 mg PO DAILY #30 tab 09/10/17 Rx Potassium Chlor TAB* [Potassium 20 meq PO BID #60 tab.er 09/10/17 Rx Chlor TAB 20 MEQ*] Hospital Course: Please see full admit H+P, briefly 61 yo F w PMH of metastatic small bowel adenocarcinoma on FOLFOX/Avastin with prior strokes in 07/2016 when seen in consultation by Dr. Stahl, now presenting with subtle left facial droop and weakness and found to have a Right MCA nonhemorrhagic stroke. She was seen in consultation by Dr. Nugent who raised the concern for a cardioembolic source. She did have a VIVIENNE with bubble study last year that was negative making a PFO unlikely. LE dopplers and carotid dopplers were negative and she had no clear afib on monitor. Given this it was recommended to switch to plavix and add a statin rather than full dose anticoagulation given risks of bleeding without clearly documented afib. Given her overall poor prognosis from her metastatic adenocarcinoma it was not felt that she would be a candidate for more aggressive management like implantable loop recorder. She was seen by PT and able to ambulate with assistance but will require PT in her fdc, which she will be able to receive. She has completed a full course of antibiotics for her prior bacteremia and will be discharged off of antiboitics. She will follow up with Dr. Nolan on Thursday to discuss whether or not any further chemotherapy is reasonable depending on functional status. >30 mins spent, >50% in face to face counseling
[2017-09-10] MEDS ORDERED: Ferrous Gluconate TAB* 324 MG TAB PO SCH (09:00)
[2017-09-10] MEDS ORDERED: Potassium Chlor TAB* 20 MEQ TAB.ER PO SCH (09:00)
[2017-09-10] MEDS ORDERED: PANTOPRAZOLE 40 MG PO SCH (09:00)
[2017-09-10] MEDS: guaiFENesin LIQ* 100 MG/5 ML UDC PO PRN (09:18)
[2017-09-10 11:40] VITALS: BP 186/90
[2017-09-10] MEDS ORDERED: Atorvastatin* 40 MG TAB PO SCH (17:00)
== END 2017-09-10 18:02 | disposition home health service (06) | DRG 45 ==
LOC: ED 12:18 → MEDTELE 15:44 → OBSVTOIN 16:00
PROVIDERS: ADMIT Internal Medicine Hematology & Oncology; ATTEND Internal Medicine Hematology & Oncology
DX: I63.511 Cerebral infarction due to unspecified occlusion or stenosis of right middle cerebral artery (principal); C17.9 Malignant neoplasm of small intestine, unspecified; C79.9 Secondary malignant neoplasm of unspecified site; D70.9 Neutropenia, unspecified; N18.3 Chronic kidney disease, stage 3 (moderate); F20.9 Schizophrenia, unspecified; E83.42 Hypomagnesemia; E87.1 Hypo-osmolality and hyponatremia; T45.1X5A Adverse effect of antineoplastic and immunosuppressive drugs, initial encounter; R29.810 Facial weakness; I12.9 Hypertensive chronic kidney disease with stage 1 through stage 4 chronic kidney disease, or unspecified chronic kidney disease; F32.9 Major depressive disorder, single episode, unspecified; R04.0 Epistaxis; D64.9 Anemia, unspecified; R47.81 Slurred speech; F41.9 Anxiety disorder, unspecified; H02.401 Unspecified ptosis of right eyelid; R53.1 Weakness; E87.6 Hypokalemia; Z93.2 Ileostomy status; Z85.07 Personal history of malignant neoplasm of pancreas; Z85.850 Personal history of malignant neoplasm of thyroid; Z79.02 Long term (current) use of antithrombotics/antiplatelets
CPT/HCPCS: 0521F; 1036F; 1125F; 36415; 70551; 80048; 80053; 80061; 83605; 83735; 84443; 84484; 85025; 85610; 85730; 86140; 87040; 93005; 93306; 93880; 93970; 99214; 99233; 99239; 99283; A9270-GY; G8427; J0692; J1644; J3475; J3480; J3490

== ENCOUNTER 2017-09-12 09:11 | Emergency (ER) | payer BC ==
[2017-09-12 09:58] LABS: ABS Basophils 0 10^3/ul (0-0.2); ABS Eosinophils 0.1 10^3/ul (0-0.6); ABS Neutrophils 2.2 10^3/ul (1.5-7.7); ABS Nucleated RBC 0.01 10^3/ul; Eosinophil % 2.4 % (0-6); Hematocrit 36 % (35-47); Hemoglobin 12.2 g/dl (12.0-16.0); Lymphocyte % 22.8 % (25-47); Mean Corpuscular HGB Conc 34 g/dl (31-36); Mean Corpuscular Hemoglobin 30 pg (27-31); Mean Corpuscular Volume 89 fL (80-97); Mean Platelet Volume 8 um3 (7.4-10.4); Nucleated Red Blood Cells % 0.3; Platelet Count 222 10^3/ul (150-450); Red Blood Count 4.08 10^6/ul (4.0-5.4); Red Cell Distribution Width 18 % (10.5-15); White Blood Count 4.3 10^3/ul (3.5-10.8)
[2017-09-12 10:04] LABS: INR 0.89 (0.77-1.02)
[2017-09-12 10:15] LABS: EGFR Non-African American 54.5 (>60)
--- NOTE | 2017-09-12 10:30 | RAD ---
INDICATION: Left-sided weakness and slurred speech COMPARISON: Most recent CT the brain is dated June 21, 2017 TECHNIQUE: Contiguous axial sections of the brain were obtained from the skull base to the vertex without contrast. FINDINGS: The ventricles, cisterns and sulci are within normal limits. Involving the right posterior parietal lobe and extending to involve the upper portion of the right temporal lobe there is loss of river-white matter differentiation and sulcal effacement. Elsewhere the River-white matter differentiation is adequately maintained and there is no sulcal effacement. No significant focal abnormality or mass effect is present. There is no evidence for intracranial hemorrhage. Incidentally noted is hyperostosis frontalis interna. No significant focal osseous abnormality is present. The visualized portion of the paranasal sinuses appear clear. The mastoid air cells are well aerated bilaterally. IMPRESSION: CT findings indicate right MCA territorial infarction. Findings reported to Dr. Man over the telephone at 1027 hours on September 12, 2017.
[2017-09-12 11:54] LABS: Urine Appearance Cloudy; Urine Blood 2+ (Negative); Urine Color Yellow; Urine Ketones Negative (Negative); Urine Protein Negative (Negative); Urine Specific Gravity 1.008 (1.010-1.030); Urine Urobilinogen Negative (Negative)
[2017-09-12 14:24] VITALS: BP 131/75
--- NOTE | 2017-09-12 17:54 | ED ---
Cole Canas Natalie, scribed for Geovanny Man MD on 09/12/17 at 0926 . Neurological HPI - HPI Summary HPI Summary: The pt is a 61 y/o F BIBA to the ED c/o left-sided weakness starting 12 hours ago. The pt states her left side feels like lead. Its harder to move left side than right side. Per EMS, the patients speech has improved, but she was limp on her left side and she was slumped over in the stretcher on the left side. She was last seen well at 20:30 last night. The pt was in the ED on for similar symptoms of drooping face. - History of Current Complaint Stated Complaint: STROKE RELATED SYMPTOMS Time Seen by Provider: 09/12/17 09:17 Hx Obtained From: Patient Onset/Duration: Started hours ago - weakness starting 12 hours ago, Still Present Current Severity: Moderate Seizure Severity: Moderate Neurological Deficit Location: LUE, LLE Pain Scale Used: 0-10 Numeric Character: Motor Weakness, Impaired Speech - slurred, Other: - left side "feels like lead", left leg harder to pecan picker than right - Additional Pertinent History Primary Care Physician: [id number] - Allergy/Home Medications Allergies/Adverse Reactions: Allergies Allergy/AdvReac Type Severity Reaction Status Date / Time No Known Allergies Allergy Verified 09/01/17 21:10 PMH/Surg Hx/FS Hx/Imm Hx Previously Healthy: No Endocrine/Hematology History: Reports: Hx Thyroid Disease - removed, thyroid CA hx, Hx Anemia Denies: Hx Diabetes Cardiovascular History: Reports: Hx Hypertension Denies: Hx Pacemaker/ICD GI History: Reports: Other GI Disorders - Familial polyposis, colectomy with ileal pouch, ampullary cancer, colon ca. History: Denies: Hx Renal Disease Sensory History: Reports: Hx Contacts or Glasses Denies: Hx Hearing Aid Opthamlomology History: Reports: Hx Contacts or Glasses Neurological History: Reports: Hx Transient Ischemic Attacks (TIA), Other Neuro Impairments/Disorders - MENTAL HEALTH ISSUES? Psychiatric History: Reports: Hx Anxiety, Hx Depression, Hx Schizophrenia - Schizoaffective type, Other Psychiatric Issues/Disorders - increase in confusion /pt cognition at baseline unclear at present time Denies: Hx Panic Disorder - Cancer History Cancer Type, Location and Year: thyroid cancer,colon cancer Hx Chemotherapy: Yes - Surgical History Surgery Procedure, Year, and Place: Colectomy with ileal pouch; Whipple; thyroidectomy; left humerus ORIF Hx Anesthesia Reactions: No - Family History Known Family History: Positive: Hypertension, Other - Familial adenomatous polyposis - Social History Alcohol Use: None Alcohol Amount: 1 drink/year Substance Use Type: Reports: None Smoking Status (MU): Never Smoked Tobacco Review of Systems Negative: Fever Positive: Other - difficult to pecan picker LLE Positive: Weakness - left-sided, Slurred Speech All Other Systems Reviewed And Are Negative: Yes Physical Exam - Summary Physical Exam Summary: Appearance: The patient is well-nourished in no acute distress and in no acute pain. Skin: The skin is warm and dry and skin color reflects adequate perfusion. HEENT: The head is normocephalic and atraumatic. The patient's face is puffy. Her right eye does not open as much as her left eye. The conjunctivae are clear and without drainage. Nares are patent and without drainage. Mouth reveals moist mucous membranes and the throat is without erythema and exudate. The external ears are intact. The ear canals are patent and without drainage. The tympanic membranes are intact. Neck: The neck is supple with full range of motion and non-tender. There are no carotid bruits. There is no neck vein distension. Respiratory: Chest is non-tender. Lungs are clear to auscultation and breath sounds are symmetrical and equal. Cardiovascular: Heart is regular rate and rhythm. There is no murmur or rub auscultated. There is no peripheral edema and pulses are symmetrical and equal. Abdomen: The abdomen is soft and non-tender. There are normal bowel sounds heard in all four quadrants and there is no organomegaly palpated. Musculoskeletal: There is no back tenderness noted. Extremities are non-tender. There is good capillary refill. There is no peripheral edema or calf tenderness elicited. There is weakness on left side. Neurological: Patient is alert and oriented to person, place and time. The patient has weakness on left side. Cranial nerves are grossly intact. Deep tendon reflexes are symmetrical and equal in all four extremities. The patient has thick speech, difficult to understand. Psychiatric: The patient has an appropriate affect and does not exhibit any anxiety or depression. Triage Information Reviewed: Yes Vital Signs On Initial Exam: Initial Vitals Temp Pulse Resp BP Pulse Ox 97.0 F 84 13 146/81 98 12/30/17 09:20 09/12/17 09:20 09/12/17 09:20 09/12/17 09:20 09/12/17 09:20 Vital Signs Reviewed: Yes Diagnostics - Vital Signs Vital Signs Temp Pulse Resp BP Pulse Ox 09/12/17 14:24 97.2 F 86 13 131/75 98 09/12/17 14:17 11 131/75 09/12/17 14:00 11 126/64 09/12/17 13:30 13 138/65 09/12/17 13:00 10 127/59 09/12/17 12:30 10 125/63 09/12/17 12:00 79 12 148/73 99 09/12/17 11:30 80 12 145/71 99 09/12/17 11:00 63 10 130/58 99 09/12/17 10:30 65 9 137/74 99 09/12/17 10:10 143/66 09/12/17 10:02 73 12 100 09/12/17 10:00 75 11 147/66 98 09/12/17 09:30 76 12 141/81 98 09/12/17 09:22 87 17 98 09/12/17 09:20 97.0 F 84 13 146/81 98 - Laboratory Lab Results: Lab Results 09/12/17 09/12/17 09/12/17 Range/Units 09:32 09:32 09:32 WBC 4.3 (3.5-10.8) 10^3/ul RBC 4.08 (4.0-5.4) 10^6/ul Hgb 12.2 (12.0-16.0) g/dl Hct 36 (35-47) % MCV 89 (80-97) fL MCH 30 (27-31) pg MCHC 34 (31-36) g/dl RDW 18 H (10.5-15) % Plt Count 222 (150-450) 10^3/ul MPV 8 (7.4-10.4) um3 Neut % (Auto) 50.5 (38-83) % Lymph % (Auto) 22.8 L (25-47) % [place] % (Auto) 23.8 H (1-9) % Eos % (Auto) 2.4 (0-6) % Baso % (Auto) 0.5 (0-2) % Absolute Neuts (auto) 2.2 (1.5-7.7) 10^3/ul Absolute Lymphs (auto) 1.0 (1.0-4.8) 10^3/ul Absolute Monos (auto) 1.0 H (0-0.8) 10^3/ul Absolute Eos (auto) 0.1 (0-0.6) 10^3/ul Absolute Basos (auto) 0 (0-0.2) 10^3/ul Absolute Nucleated RBC 0.01 10^3/ul Nucleated RBC % 0.3 INR (Anticoag Therapy) 0.89 (0.77-1.02) Sodium 131 L (133-145) mmol/L Potassium 4.1 (3.5-5.0) mmol/L Chloride 105 (101-111) mmol/L Carbon Dioxide 21 L (22-32) mmol/L Anion Gap 5 (2-11) mmol/L BUN 8 (6-24) mg/dL Creatinine 1.03 H (0.51-0.95) mg/dL Est GFR ( Amer) 70.1 (>60) Est GFR (Non-Af Amer) 54.5 (>60) BUN/Creatinine Ratio 7.8 L (8-20) Glucose 109 H (70-100) mg/dL Lactic Acid (0.5-2.0) mmol/L Calcium 8.3 L (8.6-10.3) mg/dL Total Bilirubin 0.60 (0.2-1.0) mg/dL AST 18 (13-39) U/L ALT 10 (7-52) U/L Alkaline Phosphatase 146 H (34-104) U/L Troponin I 0.01 (<0.04) ng/mL Total Protein 5.3 L (6.4-8.9) g/dL Albumin 2.1 L (3.2-5.2) g/dL Globulin 3.2 (2-4) g/dL Albumin/Globulin Ratio 0.7 L (1-3) Urine Color Urine Appearance Urine pH (5-9) Ur Specific [place] (1.010-1.030) Urine Protein (Negative) Urine Ketones (Negative) Urine Blood (Negative) Urine Nitrate (Negative) Urine Bilirubin (Negative) Urine Urobilinogen (Negative) Ur Leukocyte Esterase (Negative) Urine WBC (Auto) (Absent) Urine RBC (Auto) (Absent) Ur Squamous Epith Cells (Absent) Urine Bacteria (Absent) Urine Glucose (Negative) 09/12/17 09/12/17 Range/Units 09:32 11:40 WBC (3.5-10.8) 10^3/ul RBC (4.0-5.4) 10^6/ul Hgb (12.0-16.0) g/dl Hct (35-47) % MCV (80-97) fL MCH (27-31) pg MCHC (31-36) g/dl RDW (10.5-15) % Plt Count (150-450) 10^3/ul MPV (7.4-10.4) um3 Neut % (Auto) (38-83) % Lymph % (Auto) (25-47) % [place] % (Auto) (1-9) % Eos % (Auto) (0-6) % Baso % (Auto) (0-2) % Absolute Neuts (auto) (1.5-7.7) 10^3/ul Absolute Lymphs (auto) (1.0-4.8) 10^3/ul Absolute Monos (auto) (0-0.8) 10^3/ul Absolute Eos (auto) (0-0.6) 10^3/ul Absolute Basos (auto) (0-0.2) 10^3/ul Absolute Nucleated RBC 10^3/ul Nucleated RBC % INR (Anticoag Therapy) (0.77-1.02) Sodium (133-145) mmol/L Potassium (3.5-5.0) mmol/L Chloride (101-111) mmol/L Carbon Dioxide (22-32) mmol/L Anion Gap (2-11) mmol/L BUN (6-24) mg/dL Creatinine (0.51-0.95) mg/dL Est GFR ( Amer) (>60) Est GFR (Non-Af Amer) (>60) BUN/Creatinine Ratio (8-20) Glucose (70-100) mg/dL Lactic Acid 1.4 (0.5-2.0) mmol/L Calcium (8.6-10.3) mg/dL Total Bilirubin (0.2-1.0) mg/dL AST (13-39) U/L ALT (7-52) U/L Alkaline Phosphatase (34-104) U/L Troponin I (<0.04) ng/mL Total Protein (6.4-8.9) g/dL Albumin (3.2-5.2) g/dL Globulin (2-4) g/dL Albumin/Globulin Ratio (1-3) Urine Color Yellow Urine Appearance Cloudy Urine pH 5.0 (5-9) Ur Specific [place] 1.008 L (1.010-1.030) Urine Protein Negative (Negative) Urine Ketones Negative (Negative) Urine Blood 2+ H (Negative) Urine Nitrate Negative (Negative) Urine Bilirubin Negative (Negative) Urine Urobilinogen Negative (Negative) Ur Leukocyte Esterase Negative (Negative) Urine WBC (Auto) Trace(0-5/hpf) (Absent) Urine RBC (Auto) 1+(3-5/hpf) H (Absent) Ur Squamous Epith Cells Present H (Absent) Urine Bacteria Absent (Absent) Urine Glucose Negative (Negative) Result Diagrams: 09/12/17 09:32 09/12/17 09:32 Lab Statement: Any lab studies that have been ordered have been reviewed, and results considered in the medical decision making process. - CT Brain CT CT Interpretation: Positive (See Comments) - CT findings indicate right MCA territorial infarcation. ED physician has reviewed this report. CT Interpretation Completed By: Radiologist - EKG 09:36 Cardiac Rate: NL EKG Rhythm: Sinus Rhythm - 75 BPM EKG Interpretation: Nml SR. Course/Dx - Course Course Of Treatment: Ms. Yung presents today similarly to last Thursday with left sided weakness that is gradually improving. She was found on MRI to have a right MCA CVA then and this now shows on the CT scan. There is no bleeding. Her W/U is otherwise negative and she is back to her baseline. This could be caused by a number of things including partial seizure, generalized seizure followed by Venancio paralysis, or any event causing her blood pressure or sugar to be low. She is back to normal now and I will let her go to F/U with Dr. Nolan. - Diagnoses Provider Diagnoses: CVA (cerebral vascular accident) Discharge - Discharge Plan Condition: Stable Disposition: HOME Referrals: Laura Melo MD [Primary Care Provider] - Terrell Nolan MD [Medical Doctor] - 09/15/17 Additional Instructions: Follow up with Dr. Nolan, oncology, at on 09/15/2017. Return to the Emergency Department if any new or worsening symptoms occur. The documentation as recorded by the Cole tripathi Natalie accurately reflects the service I personally performed and the decisions made by me, Geovanny Man MD.
== END 2017-09-12 14:24 | disposition home or self-care (01) ==
LOC: ED 09:11
DX: I63.9 Cerebral infarction, unspecified (principal); R47.81 Slurred speech; R53.1 Weakness; Z85.850 Personal history of malignant neoplasm of thyroid; Z85.038 Personal history of other malignant neoplasm of large intestine
CPT/HCPCS: 36415; 70450; 80053; 81003; 81015; 83605; 84484; 85025; 85610; 87040; 93005; 99283; J1642